=== PATIENT | male | born 1960 | race Caucasian/White ===

== ENCOUNTER → 2020-04-16 12:03 | Outpatient (BNVA) | payer MEDICAID, SELFPAY | PROVIDERS: Visit Provider Nurse Practitioner Family | DX: Z20.828 Contact with and (suspected) exposure to other viral communicable diseases (principal) | CPT/HCPCS: 87635 ==

== ENCOUNTER → 2021-09-04 09:32 | Outpatient (BNVA) | payer MEDICAID, SELFPAY | PROVIDERS: Visit Provider Surgery | DX: Z09 Encounter for follow-up examination after completed treatment for conditions other than malignant neoplasm (principal); C43.9 Malignant melanoma of skin, unspecified | CPT/HCPCS: 99213 ==

== ENCOUNTER 2021-09-09 12:33 | Outpatient (CLI) | payer MEDICAID, SELFPAY ==
--- NOTE | 2021-09-11 10:13 | ONC CON_ITS ---
Dr. Rodriguez New Patient Note Patient: Carloz Adan Unit #: [id number]: [id number] Dicatated By: Gogo Rodriguez M.D.Date of Visit: Sep 09, 2021 Onc MED New Patient/Consult Referring Physician: Dr. CHICO BLANCA M.D. History of Present Illness: Mr. Carloz Adan, is a 61-year-old gentleman with a history of melanoma involving mid upper back, underwent excisional biopsy on July 17, 2021 which showed melanoma in situ extends focally into the lateral edge and invasive melanoma extends close to the deep edge, depth of invasive 15.7 mm surface ulceration is present, T4b, NX MX, subsequently underwent CT PET scan on August 24, 2021 which showed bilateral FDG positive axillary lymph nodes consistent with metastatic disease. Index node in the left axilla measuring 4.2 x 4 cm with SUV of 18.7 and demonstrates central necrosis. A secondary left axillary lymph node measuring 1.3 x 1.6 cm with SUV of 8.5. And index right axillary lymph node measuring 1.3 cm SUV of 8.1. And mild postsurgical inflammatory changes in the midline right upper back As per patient he noticed a small skin bump in his right upper back about a year ago and thought could be basal cell carcinoma, as patient has history of basal cell carcinoma in the past so did not pay much attention but it continued to get bigger. And around Thanks2020 patient noted bilateral axillary masses, left was bigger than right sided,, at that time patient thought it could be due to deodorant, which he stopped using, with that, right sided lymph node resolved and left-sided axillary mass improved but persist. Denies overlying skin changes denies any pain, denies any history of bite or trauma, denies any night sweats, denies any recurrent fever denies any weight loss. Denies any bony pains Past Medical History: Mr. Adan's medical history consists of history of basal cell carcinoma, hypertension, and Covid virus in 2020. Past Surgical History: There is no documented surgical history. Medications: Atorvastatin Calcium 1 Tablet (of 10 mg) Oral daily, Combigan 1 Drop(s) (of 0.2-0.5 %) Solution Ophthalmic b.i.d., Ibuprofen 3 Tablet (of 200 mg) Oral PRN, Losartan Potassium 1 Tablet (of 100 mg) Oral daily, Mylanta (200-200-20 mg/5mL) Suspension Oral Take as Directed Allergies: Aspirin, Naproxen, and Penicillins. Social History: Mr. Adan is . Mr. Adan has never smoked. He is a former drinker. Family History: There is no documented family history. Review Of Symptoms: Review of Systems is not available for this patient. Vital Signs: Performed on Sep 09, 2021 14:09: 3, 0, 32.78 (HIGH), 2.16 sq.m, 69 in, 97 %, 61 /min, 18 /min, 179/98 mm(hg) (HIGH), 97.6 F (LOW), and 222.0 lbs (HIGH). Performance Status: 0 - Fully active, able to carry on all predisease activities without restrictions. (ECOG) Physical Examination: ENMT - No mouth sores, no thrush, no jaundice, About 5 cm lymph node palpable in left axilla, Nontender no overlying skin changes, Respiratory - Lungs are clear to auscultation without rhonchi or wheezing, Cardiovascular - Regular rate and rhythm of heart, Abdomen - Soft, bowel sounds present, Extremities - No visible edema, well-healed surgical scar in the mid upper right back. Lab/Imaging: Most recent lab results are not available for this patient. Impression: Malignant melanoma, superficial spreading type, invasive into subcutaneous tissue for excisional biopsy of right upper back skin lesion, depth of invasion 15.7 mm, surface ulceration is present pathological stage T4b, NX MX CT PET scan done on August 24, 2021 showed bilateral malignant axillary lymphadenopathy, more prominent on the left than the right representing metastatic disease. Postsurgical inflammatory changes in the right back from melanoma excision. History of basal cell carcinoma Plan: Discussed with patient regarding his CT PET scan finding and pathology from his right upper skin lesion biopsy which confirmed melanoma and now CT PET scan Done on August 24, 2021 showed bilateral axillary lymphadenopathy, case was discussed with Dr. Blanca today, who is planning to do left axillary lymph node biopsy, if positive then left axillary lymph node dissection and sonogram guided right axillary lymph node FNA, will request them molecular profiling including BRAF mutation testing. On the other hand, if left axillary lymph node biopsy shows no evidence of melanoma, then he would consider sentinel lymph node biopsy. Patient return to clinic in 2 weeks with CBC CMP. And left axillary lymph node biopsy report Signed By: Gogo Rodriguez M.D. <<Signature on File>>
== END 2021-09-09 12:34 | disposition home or self-care (01) ==
LOC: ONCMED 12:37
PROVIDERS: Visit Provider Internal Medicine Hematology & Oncology
DX: C43.59 Malignant melanoma of other part of trunk (principal); R59.0 Localized enlarged lymph nodes; Z85.828 Personal history of other malignant neoplasm of skin; F10.21 Alcohol dependence, in remission
CPT/HCPCS: 99205

== ENCOUNTER 2021-09-10 07:39 | Day surgery (SDC) | payer MEDICAID, SELFPAY ==
[2021-09-09 14:23] VITALS: BMI 32.8
[2021-09-10] VITALS (9 sets, daily range): BP systolic 129–164; BP diastolic 84–110; PULSE 65–81; RESP 16–18; TEMP 36.1–36.6; O2SAT 97–100
[2021-09-10] MEDS: sodium chloride 0.9% 1,000 ML 30 ML IV (08:12)
[2021-09-10] MEDS: acetaminophen 1,000 MG/100 ML PIGGYBACK 400 MG IV (08:30)
[2021-09-10] MEDS: heparin 5,000 unit/mL INJ 1 mL 2000 UNIT SUBCUT (08:32)
--- NOTE | 2021-09-10 09:01 | W.PM.OPSUD ---
Surgery/Procedure H&P Update DATE OF PROCEDURE: September 10, 2021 DATE H&P PERFORMED: 09/04/21 H&P UPDATE INFORMATION: I have reviewed H&P completed within last 30 days, I have examined patient prior to procedure and Changes to prior documentation as noted here (After in-depth discussion with Dr. Rodriguez and Dr. Orona, the consensus is to obtain first left exam lymph node biopsy and subsequently will determine future management.) PREOP DIAGNOSIS: Back melanoma with left axillary lymphadenopathy PRIMARY INDICATION FOR PROCEDURE: Back melanoma PLANNED PROCEDURE: Operation Date: 09/10/21 09:10 Proposed Procedures p wide local excision back mass 42266/14048/C43.0(Not Applicable) - Juan Blanca MD s Bilateral Axillary lymph node bx(Bilateral) - Juan Blanca MD
[2021-09-10] MEDS: clindamycin 900 MG/50 ML PREMIX 100 MG IV (09:31)
[2021-09-10] MEDS: lidocaine 2% INJ 20 mL INJECTION (10:16)
--- NOTE | 2021-09-10 11:36 | PM.OP ---
Operative Report Date of procedure: September 10, 2021 Pre-op diagnosis: Preop Diagnosis Back melanoma with left axillary lymphadenopathy Post-op diagnosis: Left axillary enlarged lymph node Post-op findings: Amulgmated left axillary lymphadenopathy Procedure done: Left axillary lymphadenectomy and placement of left axillary drain Implants: Pieces of Surgicel 15 Wolof round John drain Specimens removed/disposition: Left axillary lymphadenectomy 1-Fresh tissues sent for pathology 2-Tissues for cultures and sensitivities 3-Swabs for cultures and sensitivities Surgeon: Juan Blanca MD Bail Bond Agent: Angela Lopez Circulating nurse Riana Estimated blood loss (mL): 15 IV fluids (mL): 1,200 Procedure: Patient was identified in holding area and the left axilla was marked by me ,Patient was brought then to the operating room and the site of surgery was confirmed. Timeout was done verifying the patient's name/date of /planned procedure and destination after the procedure, all were in agreement. SCDs confirmed to be functioning, preoperative antibiotics administered per protocol, and beta austin protocol was confirmed, appropriate positioning of the patient was done by me and the staff Left pectoral area and left axilla and the whole left upper extremity and neck were prepped and draped in the usual sterile fashion, the left upper extremity were placed in a stockinette to allow mobilization of the arm during axillary dissection. Transverse skin incision was done at the left axilla coinciding with the skin crease, the dissection down to the subcutaneous tissues. Identified a large amalgamted lymph madyson mass,with central necrosis was appreciated with green material exuded out that was swabbed for cultures and sensitivities as well as tissues were sent for cultures and sensitivities. During dissection the clavipectoral fascia was then incised along the edge of the pectoralis major and the pectoralis major and minor were freed from surrounding fat and madyson tissue. Dissection progressed first under the pectoralis major done under the pectoralis minor muscle. The mass was big and was identified as a single matted lymphadenopathy. There were no other palpable lymph nodes or concerning lesions at the time of dissection. The pectoral muscles were retracted medially with a Lara retractor. The medial pectoral neurovascular bundle was identified and preserved.Hand-held harmonic scalpel was used for dissection. Remaining madyson tissue between the above nerves is then carefully removed, the specimen consisting of left axilla lymphadenectomy was sent for fresh to pathology. The whole lymph node the mass was about 10 x 5 x 4 cm The wound was irrigated and hemostasis was achieved. Small and medium size clips were used for hemostasis. A rounded John drain 15 Wolof were placed and brought out through the inferior flap,towards the axilla , drain was stitched to the skin using 2-0 nylonx2 .wound was then closed using deep subdermal 2-0 Vicryl , followed by 4-0 Monocryl then surgical glue followed by dry dressing, drain dressing. Counts of sponges, needles and instruments were completed at the end of the procedure I was present for the whole entire procedure Patient was then extubated and taken to the recovery room in stable condition
[2021-09-10] MEDS: HYDROcodone-acetaminophen 5-325 mg Tablet 1 TAB PO (12:54)
--- NOTE | 2021-09-10 13:16 | PC.NURSE ---
0-went over instructions with patient and patient spouse regarding care of drain. Gave paper for them to record drainage on. demonstrated how to empty drain and apply back to suction. Instructed patient and family on excercises to use to left arm to prevent lymphadema, Patient and family both verbalize understanding.
--- NOTE | 2021-09-10 17:43 | ANE.PACU2 ---
Inpatient post-anesthesia follow up: Airway intact: Yes Vital signs: Temperature 97.8 F Pulse Rate 70 Respiratory Rate 18 Blood Pressure 164/99 Pulse Oximetry 100 Oxygen Delivery Me thod Room Air Oxygen Flow Rate 6 Fraction of Inspir ed Oxygen Hydration adequate: Yes Nausea and vomiting: No Pain level: 1 Mental status: Baseline
[2021-09-18 13:37] LABS: Miscellaneous Test See Scanned Lab Rpt
[2021-09-26 09:14] LABS: Miscellaneous Test See Scanned Lab Rpt
== END 2021-09-10 13:29 | disposition home or self-care (01) ==
PROVIDERS: Visit Provider Surgery
PROC: (CPT 38525; 2021-09-10 09:00)
DX: C43.59 Malignant melanoma of other part of trunk (principal); C77.3 Secondary and unspecified malignant neoplasm of axilla and upper limb lymph nodes
CPT/HCPCS: 38525; 81210; 87070; 87075; 87176; 87205; 88307; 88341; 88342; 88381; J1100; J1644; J2250; J2405; J2704; J3010; J3490; J7030

== ENCOUNTER → 2021-09-19 14:51 | Outpatient (BNVA) | payer MEDICAID, SELFPAY | PROVIDERS: Visit Provider Surgery | DX: Z98.890 Other specified postprocedural states (principal); C43.9 Malignant melanoma of skin, unspecified ==

== ENCOUNTER → 2021-09-27 07:41 | Outpatient (BNVA) | payer MEDICAID, SELFPAY | PROVIDERS: PCP Family Medicine; Referring Provider Family Medicine; Visit Provider Urology | DX: R97.20 Elevated prostate specific antigen [PSA] (principal); Z85.820 Personal history of malignant melanoma of skin | CPT/HCPCS: 36415; 81003; 84153; 99204 ==

== ENCOUNTER 2021-10-02 10:05 | Outpatient (CLI) | payer MEDICAID, SELFPAY ==
--- NOTE | 2021-10-02 10:45 | US_ITS ---
WS: [id number] ULTRASOUND GUIDED BIOPSY RIGHT AXILLARY LYMPH NODE. HISTORY: Abnormal, PET/CT positive lymph nodes in the RIGHT axilla. History of melanoma. Procedure, risks, and complications are explained to the patient. Consent was obtained. Skin is clean sed with ChloraPrep and anesthetized with 1% buffered lidocaine. Abnormal RIGHT axillary lymph node is identified. There are small dermatome multiple core biopsies ar e performed with 18 and 20-gauge needles. No complications are evident. Specimen is placed in saline for pathology. US/US biopsy lymph node [id number] IMPRESSION: 1. Uncomplicated ultrasound-guided biopsy RIGHT axillary lymph node. 2. Specimen collected in saline and sent to pathology immediately after proced ure.
== END 2021-10-02 10:06 | disposition home or self-care (01) ==
LOC: RAD 10:09
PROVIDERS: PCP Family Medicine; Visit Provider Surgery
DX: C43.9 Malignant melanoma of skin, unspecified (principal); R59.9 Enlarged lymph nodes, unspecified
CPT/HCPCS: 38505; 76942; 88305

== ENCOUNTER 2021-10-04 07:47 | Outpatient (CLI) | payer MEDICAID, SELFPAY ==
[2021-10-04 08:23] LABS: Alanine Aminotransferase 44 U/L (0-41); Albumin Level 4.1 g/dL (3.5-5.2); Alkaline Phosphatase 257 IU/L (40-130); Anion Gap 16.1 (5-19); Aspartate Amino Transferase 22 U/L (0-40); Blood Urea Nitrogen 12 mg/dL (8-23); Calcium 8.7 mg/dL (8.5-10.5); Carbon Dioxide 25 mmol/L (22-29); Chloride 102 mmol/L (98-107); Globulin 3.1 g/dL (1.3-4.6); Glomerular Filtration Rate 98.3 mL/min (90-130); Glucose 90 mg/dL (65-115); Osmolality Calculated 287 mOsm/kg (285-295); Potassium 4.1 mmol/L (3.5-5.1); Sodium 139 mmol/L (136-145); Total Bilirubin 0.3 mg/dL (0.15-1.2); Total Protein 7.2 g/dL (6.6-8.7)
== END 2021-10-04 07:48 | disposition home or self-care (01) ==
LOC: LAB 07:48
PROVIDERS: PCP Family Medicine; Visit Provider Internal Medicine Hematology & Oncology
DX: C43.9 Malignant melanoma of skin, unspecified (principal)
CPT/HCPCS: 36415; 80053

== ENCOUNTER 2021-10-04 08:00 | Oncology outpatient (recurring) (ONCR) | payer MEDICAID, SELFPAY ==
[2021-09-25 10:50] LABS: Basophils % 0.3 %; Eosinophils # 0.1 10^3/uL (0.0-0.8); Eosinophils % 0.7 %; Hematocrit 45.7 % (42.0-52.0); Hemoglobin 14.8 g/dL (11.7-16.6); Lymphocytes # 1.5 10^3/uL (0.8-4.8); Lymphocytes % 16.2 %; Mean Corpuscular HGB Conc 32.4 g/dL (30.0-36.0); Mean Corpuscular Hemoglobin 27.7 pg (28.0-34.0); Mean Corpuscular Volume 85.6 fl (80-94); Mean Platelet Volume 10.2 fL (7.4-10.4); Monocytes # 0.9 10^3/uL (0.2-0.9); Monocytes % 9.2 %; Neutrophils # 6.75 10^3/uL (1.8-7.7); Neutrophils % 73.4 %; Nucleated Red Blood Cells % 0 %; Platelet Count 383 10^3/cmm (130-400); Red Blood Count 5.34 10^6/uL (4.1-5.3); Red Cell Distribution Width 13.9 % (12.1-15.1); White Blood Count 9.2 10^3/uL (4.0-10.0)
[2021-09-25 11:15] LABS: Alanine Aminotransferase 296 U/L (0-41); Albumin Level 3.8 g/dL (3.5-5.2); Alkaline Phosphatase 573 IU/L (40-130); Anion Gap 13.6 (5-19); Aspartate Amino Transferase 106 U/L (0-40); Blood Urea Nitrogen 17 mg/dL (8-23); Calcium 9.5 mg/dL (8.5-10.5); Carbon Dioxide 25 mmol/L (22-29); Chloride 100 mmol/L (98-107); Globulin 3.7 g/dL (1.3-4.6); Glucose 121 mg/dL (65-115); Osmolality Calculated 283 mOsm/kg (285-295); Potassium 3.6 mmol/L (3.5-5.1); Sodium 135 mmol/L (136-145); Total Bilirubin 0.4 mg/dL (0.15-1.2); Total Protein 7.5 g/dL (6.6-8.7)
== END 2021-10-15 23:59 | disposition home or self-care (01) ==
PROVIDERS: Visit Provider Internal Medicine Hematology & Oncology
DX: C43.59 Malignant melanoma of other part of trunk (principal); C77.8 Secondary and unspecified malignant neoplasm of lymph nodes of multiple regions; C78.7 Secondary malignant neoplasm of liver and intrahepatic bile duct; R97.8 Other abnormal tumor markers; Z79.899 Other long term (current) drug therapy
CPT/HCPCS: 80053; 85025; 99214; 99999

== ENCOUNTER 2021-10-08 05:44 | Day surgery (SDC) | payer MEDICAID, SELFPAY ==
[2021-10-07 13:29] VITALS: BMI 31.7
[2021-10-08] VITALS (7 sets, daily range): BP systolic 120–163; BP diastolic 81–101; PULSE 55–80; RESP 12–18; TEMP 36.1–36.8; O2SAT 96–100
--- NOTE | 2021-10-08 06:34 | P.ANESASSM_ITS ---
Pre-Anesthetic Assessment Height/Weight: Height 1.75 m Weight 97.522 kg Temp Pulse Resp BP Pulse Ox 98.2 F 71 18 120/81 97 10/08/21 06:07 10/08/21 06:07 10/08/21 06:07 10/08/21 06:07 10/08/21 06:07 Preop Diagnosis: Melanoma of the back and visit cell carcinoma of left arm Operation Date: 10/08/21 07:00 Proposed Procedures p Wide Local Excision of back Melanoma 25541/21883/C43.9(Not Applicable) - Juan Blanca MD s Excision of Left Arm Mass(Left) - Juan Blanca MD Familial anesthetic complications: None Was Beta Jovita taken within 24 hours: N/A Was Clonidine taken within 24 hours: N/A Last intake: Intake Last Liquid Date 10/07/21 Last Liquid Time 20:00 Last Solid Date 10/07/21 Last Solid Time 19:00 Social No alcohol and No tobacco Exam alert, oriented x 3, clear to auscultation bilaterally and regular rate & rhythm Airway Mallampati: Class II Dentition: partials and other (missing) Pulmonary None reported CV/HEM Hypertension None reported Hepatic None reported GI None reported Metabolic Hyperlipidemia [facility] None reported Neuropsych None reported Anesthetic Plan ASA status: 2 Anesthesia: General Risk of > 500 ml blood loss (7ml/kg in children): No Medications/Allergies Home Medications Medication Instructions Recorded Confirmed Last Taken Type losartan 50 mg tablet 100 mg PO DAILY 09/09/21 10/08/21 10/07/21 History atorvastatin 10 mg tablet 10 mg PO DAILY 09/27/21 10/08/21 10/07/21 History brimonidine 0.2 %-timolol 0.5 % 1 drp OPHTHALMIC (EYE) BID 09/27/21 10/08/21 10/07/21 History eye drops (Combigan) Allergies Allergy/AdvReac Type Severity Reaction Status Date / Time naproxen Allergy vomiting Verified 10/04/21 08:48 Penicillins Allergy ADR-Gastrointestinal Verified 10/04/21 08:48 Upset [facility] Anesthesia Medical History Elevated PSA Hypertension Malignant melanoma Nodular basal cell carcinoma (BCC) Surgical History Hx of lymph node excision Family History (Updated 10/04/21 @ 08:53 by Theodora Obrien LPN) Father Heart disease Diabetes Mother Dementia Lung disease Grandfather Cancer Family/Other Cancer Aunt - Uterine cancer Son Diabetes Brother Hyperlipidemia Other Hypertension Denies family history of CAD (coronary artery disease) Clotting disorder Psychiatric illness Chronic kidney disease (CKD) Suicide Anesthesia complication Bleeding disorder Stroke Social History Smoking and tobacco status: never smoked Alcohol intake: never Marital status: Current occupational status: employed History of recent travel: No Data Anesthesia Cardiac Studies: No Data to Display
--- NOTE | 2021-10-08 06:35 | W.PM.OPSUD ---
Surgery/Procedure H&P Update DATE OF PROCEDURE: October 08, 2021 DATE H&P PERFORMED: 09/19/21 H&P UPDATE INFORMATION: I have reviewed H&P completed within last 30 days, I have examined patient prior to procedure and Changes to prior documentation as noted here (1. Uncomplicated ultrasound-guided biopsy RIGHT axillary lymph node. 2. Specimen collected in saline and sent to pathology immediately after procedure.) CHANGES TO PREVIOUS DOCUMENTATION: Right axillary lymph node biopsies: Metastatic Malignant Melanoma PREOP DIAGNOSIS: Melanoma of the back and visit cell carcinoma of left arm PRIMARY INDICATION FOR PROCEDURE: The same PLANNED PROCEDURE: Operation Date: 10/08/21 07:00 Proposed Procedures p Wide Local Excision of back Melanoma [id number]/12839/C43.9(Not Applicable) - Juan Blanca MD s Excision of Left Arm Mass(Left) - Juan Blanca MD
[2021-10-08] MEDS: acetaminophen 1,000 MG/100 ML PIGGYBACK 400 MG IV (06:46)
[2021-10-08] MEDS: sodium chloride 0.9% 1,000 ML 30 ML IV (06:46)
[2021-10-08] MEDS: levofloxacin-dextrose 5 % 500 MG/100 ML PREMIX 100 MG IV (06:57)
[2021-10-08] MEDS: lidocaine 2% INJ 20 mL INJECTION (08:29)
--- NOTE | 2021-10-08 08:30 | P.OP_ITS ---
Operative Report Date of procedure: October 08, 2021 Pre-op diagnosis: Preop Diagnosis Melanoma of the back and basal cell carcinoma of left arm Post-op diagnosis: The same Procedure done: 1-Wide local excision of back melanoma 2-Elevation of bilateral back flaps including skin and subcutaneous 3-Excision of left arm basal cell carcinoma Specimens removed/disposition: Wide local excision back melanoma short suture xiao superior and long right l ateral Left arm mass short sutures marked superior and long left lateral suture Surgeon: Juan Blanca MD Mechanical Manager: configuration technician Bernadine Circulating nurse Joana Anesthesia: General (Pravin Lu and Dr. Sadler) Estimated blood loss (mL): 20 IV fluids (mL): 800 Procedure: Patient was identified in the holding area and both lesions were marked by me. Patient was then taken to the operating room where he was intubated on the gurney first and then patient was moved in a prone position on the OR table were all pressure points were padded and appropriate orientation was done. Timeout was done after verifying the patient's name, date of , planned procedure and destination after pre-procedure and all were in agreement. Prep and drape of the back as well as the left upper extremity was done under the usual sterile technique. Confirmation of preop antibiotics and Tylenol as a preop medication was confirmed with a timeout. Started with wide elliptical skin incision encompassing the back melanoma putting into consideration at least 2 cm as a safe margin. I was able to dissect the skin and subcutaneous layer and the specimen was oriented with short sutures superior and long right lateral sutures. Following that I austin bilateral skin and subcutaneous flaps, to allow tension- free closure. Appropriate hemostasis was done and some bleeding points were secured with 3-0 Vicryl, there was a large surface area I elected to place a 15 Angolan round John drain and brought it from the inferior portion of the wound via separate stab incision and secured to the skin using 2-0 nylon. Copious and thorough irrigation was done and final look secured hemostasis. Running 0 Vicryl was done as a deep subdermal suture followed by interrupted horizontal Prolene mattress sutures. Attention now was deviated towards the left arm mass were gloves were changed and new instruments were brought. Elliptical incision was done encompassing the basal cell carcinoma of the left arm with appropriate safety margin. Hemostasis was achieved followed by deep subdermal 3-0 Vicryl then continuous 3-0 nylon. Appropriate dressing was applied for both incision and patient was placed in supine position. Patient was then taken to the recovery area after extubation and continued to be in stable condition. Of note patient maintained to have stable left axillary incision with appropriate healing I was present for the whole entire procedure
--- NOTE | 2021-10-08 13:47 | ANE.PACU2 ---
Inpatient post-anesthesia follow up: Airway intact: Yes Vital signs: Temperature 97.3 F Pulse Rate 55 Respiratory Rate 16 Blood Pressure 150/97 Pulse Oximetry 97 Oxygen Delivery Me thod Room Air Oxygen Flow Rate 8 Fraction of Inspir ed Oxygen Hydration adequate: Yes Nausea and vomiting: No Pain level: 2 Mental status: Baseline
== END 2021-10-08 10:10 | disposition home or self-care (01) ==
LOC: OR 05:47
PROVIDERS: PCP Family Medicine; Visit Provider Surgery
PROC: (CPT 11602; principal; 2021-10-08 07:00)
PROC: (CPT 11602; 2021-10-08 07:00)
DX: C44.619 Basal cell carcinoma of skin of left upper limb, including shoulder (principal); D36.7 Benign neoplasm of other specified sites; I10 Essential (primary) hypertension; E78.5 Hyperlipidemia, unspecified; Z82.49 Family history of ischemic heart disease and other diseases of the circulatory system; Z83.3 Family history of diabetes mellitus
CPT/HCPCS: 11602; 11606; 12032; 88305; J0330; J1100; J1956; J2370; J2405; J2704; J2710; J3010; J3490; J7030

== ENCOUNTER → 2021-10-16 11:21 | Outpatient (BNVA) | payer MEDICAID, SELFPAY | PROVIDERS: PCP Family Medicine; Visit Provider Surgery | DX: Z09 Encounter for follow-up examination after completed treatment for conditions other than malignant neoplasm (principal) | CPT/HCPCS: 99024 ==

== ENCOUNTER 2021-10-18 07:49 | Oncology outpatient (recurring) (ONCR) | payer MEDICAID, SELFPAY | END 2021-11-14 23:59 | disposition home or self-care (01) | LOC: ONCMED 07:50 | PROVIDERS: PCP Family Medicine; Visit Provider Internal Medicine Hematology & Oncology | DX: C43.59 Malignant melanoma of other part of trunk (principal); C77.3 Secondary and unspecified malignant neoplasm of axilla and upper limb lymph nodes; I10 Essential (primary) hypertension; Z79.899 Other long term (current) drug therapy | CPT/HCPCS: 36415; 80053; 85025; 99214 ==

== ENCOUNTER → 2021-10-30 08:49 | Outpatient (BNVA) | payer MEDICAID, SELFPAY | PROVIDERS: PCP Family Medicine; Visit Provider Surgery | DX: Z09 Encounter for follow-up examination after completed treatment for conditions other than malignant neoplasm (principal) | CPT/HCPCS: 99024 ==

== ENCOUNTER → 2021-11-28 12:56 | Outpatient (BNVA) | payer MEDICAID, SELFPAY | PROVIDERS: PCP Family Medicine; Visit Provider Surgery | DX: Z98.890 Other specified postprocedural states (principal); C43.9 Malignant melanoma of skin, unspecified | CPT/HCPCS: 99024 ==

== ENCOUNTER 2021-12-12 07:47 | Oncology outpatient (recurring) (ONCR) | payer MEDICAID, SELFPAY | END 2021-12-15 23:59 | disposition home or self-care (01) | PROVIDERS: PCP Family Medicine; Visit Provider Internal Medicine Hematology & Oncology | DX: C43.9 Malignant melanoma of skin, unspecified (principal); C77.3 Secondary and unspecified malignant neoplasm of axilla and upper limb lymph nodes; Z79.899 Other long term (current) drug therapy | CPT/HCPCS: 99214 ==

== ENCOUNTER 2021-12-24 09:02 | Outpatient (CLI) | payer MEDICAID, SELFPAY ==
[2021-12-24 10:04] LABS: Prostate Specific AG Urology 6.16 ng/mL (0-4)
== END 2021-12-24 09:03 | disposition home or self-care (01) ==
LOC: LAB 09:04
PROVIDERS: PCP Family Medicine; Visit Provider Urology
DX: R97.20 Elevated prostate specific antigen [PSA] (principal)
CPT/HCPCS: 36415; 81003; 84153; 99213

== ENCOUNTER → 2021-12-25 13:58 | Outpatient (BNVA) | payer MEDICAID, SELFPAY | PROVIDERS: PCP Family Medicine; Visit Provider Surgery | DX: C43.9 Malignant melanoma of skin, unspecified (principal); Z98.890 Other specified postprocedural states | CPT/HCPCS: 99024 ==

== ENCOUNTER 2021-12-31 08:20 | Day surgery (SDC) | payer MEDICAID, SELFPAY ==
--- NOTE | 2021-12-26 12:31 | ANE.PACU2 ---
Inpatient post-anesthesia follow up: Airway intact: Yes Vital signs: Temperature Pulse Rate Respiratory Rate Blood Pressure Pulse Oximetry Oxygen Delivery Me thod Oxygen Flow Rate Fraction of Inspir ed Oxygen Hydration adequate: Yes Nausea and vomiting: No Pain level: 1 Mental status: Baseline
--- NOTE | 2021-12-31 | SCC_ITS ---
Procedure done: 1.Placement of PowerPort via right subclavian vein 2.Fluoroscopic guidance and interpretation for placement of catheter 12.1 seconds of fluoroscopic guidance, for a cumulative dose of 2.51 mGy, was provided to Dr. Blanca by the radiology department. C-arm images of the chest were saved for the patient's permanent record. [facility]
--- NOTE | 2021-12-31 08:44 | SC_ITS ---
WS: [id number] INTRAOPERATIVE TECHNIQUE: 3 Spot fluoroscopic images for intraoperative purposes. FLUOROSCOPY TIME: 10.9 seconds CLINICAL INFORMATION: Powerport Placement COMPARISON: None. FINDINGS: RIGHT Port-A-Cath with tip in the distal SVC. No visualized pneumothorax. SC/C-arm FL for CVA [id number] IMPRESSION: Images obtained for intraoperative purposes.
[2021-12-31 08:55] VITALS: BP 120/82; PULSE 73; RESP 16; TEMP 36.8; O2SAT 96
--- NOTE | 2021-12-31 09:39 | P.ANESASSM_ITS ---
Pre-Anesthetic Assessment Height/Weight: Height 1.75 m Weight 95.254 kg Temp Pulse Resp BP Pulse Ox O2 Del Method 98.2 F 73 16 120/82 96 12/31/21 08:55 12/31/21 08:55 12/31/21 08:55 12/31/21 08:55 12/31/21 08:55 12/31/21 09:03 Preop Diagnosis: Melanoma Operation Date: 12/31/21 10:00 Proposed Procedures p Portacath Placement 37165,C43.9(Not Applicable) - Juan Blanca MD Familial anesthetic complications: None Was Beta Jovita taken within 24 hours: N/A Was Clonidine taken within 24 hours: N/A Last intake: Intake Last Liquid Date 12/30/21 Last Liquid Time 20:00 Last Solid Date 12/30/21 Last Solid Time 18:00 Social No alcohol and No tobacco Exam alert, oriented x 3, clear to auscultation bilaterally and regular rate & rhythm Airway Mallampati: Class II Dentition: partials Metabolic Hyperlipidemia Musc/skel melanoma Neuropsych glaucoma Anesthetic Plan ASA status: 2 Anesthesia: MAC Risk of > 500 ml blood loss (7ml/kg in children): No Medications/Allergies Home Medications Medication Instructions Recorded Confirmed Last Taken Type brimonidine 0.2 %-timolol 0.5 % 1 drp ophthalmic (eye) BID 09/27/21 12/31/21 12/30/21 08:00 History eye drops (Combigan) atorvastatin 20 mg tablet 20 mg PO ONCE 11/28/21 12/31/21 12/30/21 08:00 History losartan 100 1 tab PO ONCE 11/28/21 12/31/21 12/30/21 20:00 History mg-hydrochlorothiazide 12.5 mg tablet ibuprofen 200 mg capsule 200 mg PO Q6H PRN Pain 12/24/21 12/30/21 12/28/21 20:00 History Allergies Allergy/AdvReac Type Severity Reaction Status Date / Time adhesive tape Allergy ALGY-Rash Verified 12/27/21 06:42 naproxen Allergy vomiting Verified 12/27/21 06:42 Penicillins Allergy ADR-Gastrointestinal Verified 12/27/21 06:42 Upset PFSH Anesthesia Medical History Elevated PSA Hypertension Malignant melanoma Nodular basal cell carcinoma (BCC) Surgical History Hx of lymph node excision Family History Father Heart disease Diabetes Mother , AT AGE 80 Dementia Lung disease Alzheimer disease Grandfather Cancer Family/Other Cancer Aunt - Uterine cancer Son Diabetes Brother Hyperlipidemia Other Hypertension Denies family history of CAD (coronary artery disease) Clotting disorder Psychiatric illness Chronic kidney disease (CKD) Suicide Anesthesia complication Bleeding disorder Stroke Social History Smoking and tobacco status: never smoked Alcohol intake: current Alcohol intake frequency: few times a month Marital status: Current occupational status: employed 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
--- NOTE | 2021-12-31 09:44 | W.PM.OPSUD ---
Surgery/Procedure H&P Update DATE OF PROCEDURE: December 31, 2021 DATE H&P PERFORMED: 12/25/21 H&P UPDATE INFORMATION: I have reviewed H&P completed within last 30 days, I have examined patient prior to procedure and No changes to prior documentation PREOP DIAGNOSIS: Melanoma PRIMARY INDICATION FOR PROCEDURE: The same PLANNED PROCEDURE: Operation Date: 12/31/21 10:00 Proposed Procedures p Portacath Placement 93213,C43.9(Not Applicable) - Juan Blanca MD
[2021-12-31] MEDS: sodium chloride 0.9% 1,000 ML 30 ML IV (09:49)
[2021-12-31] MEDS: clindamycin 900 MG/50 ML PREMIX 100 MG IV (09:58)
[2021-12-31] MEDS: heparin, porcine 1,000 unit/mL INJ 10 mL 10000 UNIT INJECTION (10:19)
--- NOTE | 2021-12-31 10:40 | PM.OP ---
Operative Report Date of procedure: December 31, 2021 Pre-op diagnosis: Preop Diagnosis Melanoma Post-op diagnosis: The same Procedure done: 1.Placement of PowerPort via right subclavian vein 2.Fluoroscopic guidance and interpretation for placement of catheter Surgeon: Juan Blanca MD [employer] Instructor: Angela Chavez Anesthesia: MAC (JYOTHI Cat) Estimated blood loss (mL): 5 Procedure: RIGHT SUBCLAVIAN VEIN Patient was identified in the holding area and taken to the operative room and placed in supine position IV propofol was given by the anesthesia provider ,both arms were tucked,Time-out was done verifying the patient's name/date of /planned procedure and destination after the procedure, all were in agreement. SCDs confirmed to be functioning, preoperative antibiotics administered per protocol, and beta [place] protocol was confirmed, appropriate positioning of the patient was done by me. Medications were reviewed to assess for anticoagulant usage. Risks and benefits and prevention of central line associated blood stream infection (CLABSI) were discussed with the patient/CPOA, and a consent was obtained. Monitors were in place and monitored throughout the procedure. All necessary supplies were available prior to start. Hand hygiene was completed prior to starting. Maximum barrier technique was utilized including a sterile gown, sterile gloves with a hat and mask. Site was was prepped with [chlorhexidine] and a full body drape was placed. 5 mL of 2% lidocaine was injected into the skin with a 25 gauge needle. Prep& drape was done under the usual sterile technique, lidocaine 2% was injected at the site of the stick, started by right sub-clavian vein stick that retrieved venous blood was obtained from the first stick, a guide wire was then threaded and under the guidance of fluoroscopy position was confirmed to be in the IVC and with my interpretation, there were no PVC changes, at that point the guide wire was secured to the drapes with a hemostat and the needle was taken out, attention was then deviated towards creation of a pocket for the port were lidocaine 2% was injected using an 15 blade knife skin incision was created dissection using the Bovie to create a pocket for the Power Port to be accommodated. Hemostasis was secured, after the port being appropriately flushed it was inserted into the pocket and a tunneler was used to accommodate the catheter of the port catheter to be delivered through the incision first created at the site of the stick, at that point under fluoroscopy an estimated length was measured for the catheter and was cut at the designed level, followed by that a dilator with the sheath introduced onto the guide wire the dilator and the wire were retrieved and the catheter of the port was introduced via the sheath where it was peeled off and the catheter maintained to be in the SVC that was confirmed with fluoroscopy, and the fluoroscopy interpretation was done by me throughout the entire procedure. The port was kept in its pocket,3-0 Vicryl deep subdermal interrupted sutures, skin was then closed by 4-0 Monocryl as subcuticular closure.The port was appropriately flushed with heparin and venous blood was withdrawn without difficulty.The stick site was closed by 4-0 Monocryl and Dermabond was used followed by dressing.Count was correct at the end of the procedure.Patient tolerated the procedure well was taken to the recovery area. I was present for the whole entire procedure. Position of the catheter was checked with a postoperative chest x-ray and it was in good position without evidence of pneumothorax
--- NOTE | 2021-12-31 10:42 | XR_ITS ---
WS: [id number] Exam: XR chest 1V portable [id number] Date/Time of Exam: 12/31/2021 10:42 AM Reason For Exam: Status postplacement of right subclavian vein PowerPort No priors. Right-sided subclavian Port-A-Cath has been placed and ends in the lower one third of the SVC in good position. The lungs are fully expanded and clear. Normal cardiomediastinal silhouette. Calcified gra nuloma in the right lung base. Surgical clips along the left axilla. Bony structures are intact. XR/XR chest 1V portable [id number] IMPRESSION: 1. Right-sided subclavian port in satisfactory position. No acute cardiopulmona ry finding.
[2021-12-31 10:49] VITALS: BP 108/68; PULSE 60; RESP 14; TEMP 36.6; O2SAT 97
[2021-12-31 10:55] VITALS: BP 121/70; PULSE 59; RESP 14; O2SAT 96
[2021-12-31 11:01] VITALS: BP 120/75; PULSE 55; RESP 14; TEMP 36.7; O2SAT 97
[2021-12-31 11:22] VITALS: BP 117/70; PULSE 54; RESP 12; TEMP 36.6; O2SAT 98
[2021-12-31 11:55] VITALS: BP 115/69; PULSE 58; RESP 14; TEMP 36.8; O2SAT 99
--- NOTE | 2021-12-31 13:23 | ANE.PACU2 ---
Inpatient post-anesthesia follow up: Airway intact: Yes Vital signs: Temperature 98.2 F Pulse Rate 58 Respiratory Rate 14 Blood Pressure 115/69 Pulse Oximetry 99 Oxygen Delivery Me thod Room Air Oxygen Flow Rate Fraction of Inspir ed Oxygen Hydration adequate: Yes Nausea and vomiting: No Pain level: 1 Mental status: Baseline
== END 2021-12-31 12:25 | disposition home or self-care (01) ==
PROVIDERS: PCP Family Medicine; Visit Provider Surgery
PROC: (CPT 36561; principal; 2021-12-31 09:50)
DX: C43.9 Malignant melanoma of skin, unspecified (principal); E78.5 Hyperlipidemia, unspecified
CPT/HCPCS: 36561; 71045; 76000; 77001; C1788; J1644; J2704; J3010; J3490; J7030

== ENCOUNTER → 2022-01-13 08:59 | Outpatient (BNVA) | payer MEDICAID, SELFPAY | PROVIDERS: PCP Family Medicine; Visit Provider Surgery | DX: Z09 Encounter for follow-up examination after completed treatment for conditions other than malignant neoplasm (principal) | CPT/HCPCS: 99024 ==

== ENCOUNTER 2022-01-15 10:00 | Oncology outpatient (recurring) (ONCR) | payer MEDICAID, SELFPAY ==
--- NOTE | 2021-12-17 11:00 | MR_ITS ---
WS: [id number] MRI BRAIN WITH AND WITHOUT CONTRAST HISTORY: baseline staging, history of melanoma. COMPARISON: None available. TECHNIQUE: Multiplanar imaging performed through the brain with MultiHance 20 ml's IV. No acute infarcts are seen. Blanco-white matter differentiation is well preserved. No significant small vessel ischemic disease and no prior infarct. No susceptibility artifacts or prior lacunar infarcts. Ventricles and extra-axial spaces are normal. Clivus and pituitary gland are normal. Visualized posterior fossa and brainstem are also normal. Well-circumscribed cystic mass in the super ior superficial LEFT parotid lobe measures 10 x 9 mm. This nodule does not enhance. Postcontrast images are negative for masses or vascular malformations. Dural venous sinuses are normal. Paranasal sinuses: Well aerated with no significant disease. Mastoid air cells: Normal. Calvarium and scalp: Normal. MR/MR head wo/w con [id number] IMPRESSION: 1. No evidence for metastatic disease to the brain. 2. No significant small vessel ischemic disease or prior infarct. 3. Nonenhancing cystic lesion in the superficial superior LEFT parotid gland m easuring 10 x 9 mm. High probability this is benign.
[2021-12-17] MEDS: gadobenate dimeglumine 20 mL vial IV (12:15)
[2021-12-19 10:51] LABS: Basophils % 0.3 %; Eosinophils # 0.3 10^3/uL (0.0-0.8); Eosinophils % 3.4 %; Hematocrit 40.2 % (42.0-52.0); Hemoglobin 13.6 g/dL (11.7-16.6); Lymphocytes # 1.3 10^3/uL (0.8-4.8); Lymphocytes % 13.8 %; Mean Corpuscular HGB Conc 33.8 g/dL (30.0-36.0); Mean Corpuscular Hemoglobin 28.5 pg (28.0-34.0); Mean Corpuscular Volume 84.3 fl (80-94); Mean Platelet Volume 10.1 fL (7.4-10.4); Monocytes % 10.6 %; Neutrophils # 6.62 10^3/uL (1.8-7.7); Neutrophils % 71.6 %; Nucleated Red Blood Cells % 0 %; Platelet Count 352 10^3/cmm (130-400); Red Blood Count 4.77 10^6/uL (4.1-5.3); Red Cell Distribution Width 13.3 % (12.1-15.1); White Blood Count 9.3 10^3/uL (4.0-10.0)
[2021-12-19 11:25] LABS: Alanine Aminotransferase 18 U/L (0-41); Albumin Level 3.4 g/dL (3.5-5.2); Alkaline Phosphatase 103 IU/L (40-130); Anion Gap 11.7 (5-19); Aspartate Amino Transferase 19 U/L (0-40); Blood Urea Nitrogen 14 mg/dL (8-23); Calcium 9.1 mg/dL (8.5-10.5); Carbon Dioxide 28 mmol/L (22-29); Chloride 101 mmol/L (98-107); Globulin 3.6 g/dL (1.3-4.6); Glomerular Filtration Rate 114.6 mL/min (90-130); Glucose 150 mg/dL (65-115); Osmolality Calculated 287 mOsm/kg (285-295); Potassium 3.7 mmol/L (3.5-5.1); Sodium 137 mmol/L (136-145); Total Bilirubin 0.2 mg/dL (0.15-1.2)
[2022-01-01] MEDS: sodium chloride 0.9% 250 ML 75 ML IV (09:33)
[2022-01-01] MEDS: nivolumab 240 MG in sodium chloride 0.9% 250 ML 548 MG IV (09:59)
[2022-01-01 11:03] VITALS: BP 128/82; PULSE 59; TEMP 36.6; O2SAT 97
[2022-01-15 10:26] LABS: Basophils % 0.3 %; Eosinophils # 0.2 10^3/uL (0.0-0.8); Eosinophils % 1.6 %; Hematocrit 41.9 % (42.0-52.0); Hemoglobin 13.8 g/dL (11.7-16.6); Lymphocytes # 1.3 10^3/uL (0.8-4.8); Lymphocytes % 9.5 %; Mean Corpuscular HGB Conc 32.9 g/dL (30.0-36.0); Mean Corpuscular Hemoglobin 28.1 pg (28.0-34.0); Mean Corpuscular Volume 85.3 fl (80-94); Mean Platelet Volume 9.5 fL (7.4-10.4); Monocytes # 1.2 10^3/uL (0.2-0.9); Monocytes % 9.1 %; Neutrophils # 10.65 10^3/uL (1.8-7.7); Neutrophils % 79.2 %; Nucleated Red Blood Cells % 0 %; Platelet Count 376 10^3/cmm (130-400); Red Blood Count 4.91 10^6/uL (4.1-5.3); Red Cell Distribution Width 13.8 % (12.1-15.1); White Blood Count 13.4 10^3/uL (4.0-10.0)
[2022-01-15 10:34] VITALS: BMI 30.5
[2022-01-15 11:12] LABS: Alanine Aminotransferase 14 U/L (0-41); Albumin Level 3.6 g/dL (3.5-5.2); Alkaline Phosphatase 114 U/L (40-130); Anion Gap 11.9 (5-19); Aspartate Amino Transferase 17 U/L (0-40); Blood Urea Nitrogen 13 mg/dL (8-23); Calcium 9.4 mg/dL (8.5-10.5); Carbon Dioxide 29 mmol/L (22-29); Chloride 98 mmol/L (98-107); Globulin 3.1 g/dL (1.3-4.6); Glucose 114 mg/dL (65-115); Osmolality Calculated 281 mOsm/kg (285-295); Potassium 3.9 mmol/L (3.5-5.1); Sodium 135 mmol/L (136-145); Thyroid Stimulating Hormone 0.65 uIU/mL (0.27-4.20); Total Bilirubin 0.3 mg/dL (0.15-1.2); Total Protein 6.7 g/dL (6.6-8.7)
[2022-01-15] MEDS: sodium chloride 0.9% 250 ML 75 ML IV (11:55)
[2022-01-15] MEDS: nivolumab 240 MG in sodium chloride 0.9% 250 ML 548 MG IV (12:13)
[2022-01-15 13:10] VITALS: BP 123/81; PULSE 78; RESP 18; TEMP 36.1; O2SAT 99
== END 2022-01-15 23:59 | disposition home or self-care (01) ==
PROVIDERS: Nurse Practitioner Family; PCP Family Medicine; Visit Provider Internal Medicine Hematology & Oncology
DX: Z53.9 Procedure and treatment not carried out, unspecified reason (principal); Z51.12 Encounter for antineoplastic immunotherapy; C43.59 Malignant melanoma of other part of trunk; R53.83 Other fatigue; C77.3 Secondary and unspecified malignant neoplasm of axilla and upper limb lymph nodes; Z79.899 Other long term (current) drug therapy; Z79.52 Long term (current) use of systemic steroids
CPT/HCPCS: 36415; 70553; 80053; 84443; 85025; 96413; 99214; 99215; J7050; J9299

== ENCOUNTER → 2022-01-27 08:00 | Outpatient (BNVA) | payer MEDICAID, SELFPAY | PROVIDERS: PCP Family Medicine; Visit Provider Surgery | DX: C43.9 Malignant melanoma of skin, unspecified (principal) | CPT/HCPCS: 99024 ==

== ENCOUNTER 2022-02-12 09:00 | Oncology outpatient (recurring) (ONCR) | payer MEDICAID, SELFPAY ==
[2022-01-29 08:43] VITALS: BMI 30.7
[2022-01-29 09:02] LABS: Basophils % 0.5 %; Eosinophils # 0.2 10^3/uL (0.0-0.8); Eosinophils % 2.3 %; Hematocrit 40.7 % (42.0-52.0); Hemoglobin 13.3 g/dL (11.7-16.6); Lymphocytes # 1.1 10^3/uL (0.8-4.8); Lymphocytes % 13.5 %; Mean Corpuscular HGB Conc 32.7 g/dL (30.0-36.0); Mean Corpuscular Hemoglobin 28.1 pg (28.0-34.0); Mean Corpuscular Volume 85.9 fl (80-94); Mean Platelet Volume 10.3 fL (7.4-10.4); Monocytes # 0.6 10^3/uL (0.2-0.9); Monocytes % 6.6 %; Neutrophils # 6.41 10^3/uL (1.8-7.7); Neutrophils % 76.9 %; Nucleated Red Blood Cells % 0 %; Platelet Count 310 10^3/cmm (130-400); Red Blood Count 4.74 10^6/uL (4.1-5.3); Red Cell Distribution Width 13.7 % (12.1-15.1); White Blood Count 8.3 10^3/uL (4.0-10.0)
[2022-01-29 09:24] LABS: Alanine Aminotransferase 11 U/L (0-41); Albumin Level 3.5 g/dL (3.5-5.2); Alkaline Phosphatase 105 U/L (40-130); Aspartate Amino Transferase 17 U/L (0-40); Chloride 101 mmol/L (98-107); Glucose 150 mg/dL (65-115); Potassium 3.5 mmol/L (3.5-5.1); Sodium 140 mmol/L (136-145); Thyroid Stimulating Hormone 1.32 uIU/mL (0.27-4.20)
[2022-01-29 09:39] LABS: Anion Gap 16.5 (5-19); Blood Urea Nitrogen 11 mg/dL (8-23); Calcium 9.2 mg/dL (8.5-10.5); Carbon Dioxide 26 mmol/L (22-29); Globulin 3.1 g/dL (1.3-4.6); Glomerular Filtration Rate 85.8 mL/min (90-130); Osmolality Calculated 292 mOsm/kg (285-295); Total Bilirubin 0.3 mg/dL (0.15-1.2); Total Protein 6.6 g/dL (6.6-8.7)
[2022-01-29] MEDS: sodium chloride 0.9% 250 ML 75 ML IV (11:41)
[2022-01-29] MEDS: nivolumab 240 MG in sodium chloride 0.9% 250 ML 548 MG IV (12:03)
[2022-01-29 13:00] VITALS: BP 108/70; PULSE 66; RESP 16; TEMP 36.2; O2SAT 99
[2022-02-11 08:20] VITALS: BMI 30.7
[2022-02-11 08:33] LABS: Basophils % 0.4 %; Eosinophils # 0.3 10^3/uL (0.0-0.8); Eosinophils % 2.9 %; Hematocrit 40.5 % (42.0-52.0); Hemoglobin 13.3 g/dL (11.7-16.6); Lymphocytes # 1.1 10^3/uL (0.8-4.8); Lymphocytes % 12.5 %; Mean Corpuscular HGB Conc 32.8 g/dL (30.0-36.0); Mean Corpuscular Hemoglobin 27.9 pg (28.0-34.0); Mean Corpuscular Volume 85.1 fl (80-94); Mean Platelet Volume 10.3 fL (7.4-10.4); Monocytes # 0.9 10^3/uL (0.2-0.9); Monocytes % 9.9 %; Neutrophils # 6.35 10^3/uL (1.8-7.7); Neutrophils % 74.1 %; Nucleated Red Blood Cells % 0 %; Platelet Count 276 10^3/cmm (130-400); Red Blood Count 4.76 10^6/uL (4.1-5.3); Red Cell Distribution Width 14.2 % (12.1-15.1); White Blood Count 8.6 10^3/uL (4.0-10.0)
[2022-02-11 09:01] LABS: Alanine Aminotransferase 8 U/L (0-41); Albumin Level 3.5 g/dL (3.5-5.2); Alkaline Phosphatase 110 U/L (40-130); Blood Urea Nitrogen 10 mg/dL (8-23); Calcium 9.1 mg/dL (8.5-10.5); Carbon Dioxide 29 mmol/L (22-29); Chloride 104 mmol/L (98-107); Creatinine Clr Calc Pharmacy 110.0026; Globulin 3.5 g/dL (1.3-4.6); Glomerular Filtration Rate 98.3 mL/min (90-130); Glucose 109 mg/dL (65-115); Osmolality Calculated 294 mOsm/kg (285-295); Sodium 142 mmol/L (136-145); Thyroid Stimulating Hormone 1.23 uIU/mL (0.27-4.20); Total Bilirubin 0.4 mg/dL (0.15-1.2)
[2022-02-11 09:08] LABS: Aspartate Amino Transferase 26 U/L (0-40)
[2022-02-11 09:20] LABS: Anion Gap 13.5 (5-19); Potassium 4.5 mmol/L (3.5-5.1)
[2022-02-12] MEDS: sodium chloride 0.9% 250 ML 100 ML IV (09:17)
[2022-02-12] MEDS: nivolumab 240 MG in sodium chloride 0.9% 250 ML 548 MG IV (09:38)
[2022-02-12 10:23] VITALS: BP 107/71; PULSE 59; RESP 18; TEMP 36.3; O2SAT 98
== END 2022-02-14 23:59 | disposition home or self-care (01) ==
PROVIDERS: PCP Family Medicine; Visit Provider Internal Medicine Hematology & Oncology
DX: Z51.12 Encounter for antineoplastic immunotherapy (principal); C43.59 Malignant melanoma of other part of trunk; C77.3 Secondary and unspecified malignant neoplasm of axilla and upper limb lymph nodes; M19.90 Unspecified osteoarthritis, unspecified site; Z79.899 Other long term (current) drug therapy
CPT/HCPCS: 36591; 80053; 84443; 85025; 96413; 99214; 99215; J7050; J9299

== ENCOUNTER → 2022-02-24 08:07 | Outpatient (BNVA) | payer MEDICAID, SELFPAY | PROVIDERS: PCP Family Medicine; Visit Provider Surgery | DX: Z98.890 Other specified postprocedural states (principal) | CPT/HCPCS: 99024 ==

== ENCOUNTER 2022-03-12 11:00 | Oncology outpatient (recurring) (ONCR) | payer MEDICAID, SELFPAY ==
[2022-02-25] MEDS: alteplase 1 mg/mL SDV 2 mL 2 MG INTRACATH (10:23)
[2022-02-25 12:22] LABS: Alanine Aminotransferase 11 U/L (0-41); Albumin Level 3.3 g/dL (3.5-5.2); Alkaline Phosphatase 104 U/L (40-130); Anion Gap 9.9 (5-19); Aspartate Amino Transferase 21 U/L (0-40); Blood Urea Nitrogen 11 mg/dL (8-23); Carbon Dioxide 30 mmol/L (22-29); Chloride 99 mmol/L (98-107); Globulin 3.2 g/dL (1.3-4.6); Glomerular Filtration Rate 114.6 mL/min (90-130); Glucose 112 mg/dL (65-115); Osmolality Calculated 280 mOsm/kg (285-295); Potassium 3.9 mmol/L (3.5-5.1); Sodium 135 mmol/L (136-145); Thyroid Stimulating Hormone 0.61 uIU/mL (0.27-4.20); Total Bilirubin 0.2 mg/dL (0.15-1.2); Total Protein 6.5 g/dL (6.6-8.7)
[2022-02-25 13:10] LABS: Basophils # 0.1 10^3/uL (0.0-0.1); Basophils % 0.7 %; Eosinophils # 0.3 10^3/uL (0.0-0.8); Eosinophils % 3.3 %; Hematocrit 36.9 % (42.0-52.0); Hemoglobin 12.5 g/dL (11.7-16.6); Lymphocytes # 1.1 10^3/uL (0.8-4.8); Lymphocytes % 13.5 %; Mean Corpuscular HGB Conc 33.9 g/dL (30.0-36.0); Mean Corpuscular Hemoglobin 28.8 pg (28.0-34.0); Mean Platelet Volume 10.3 fL (7.4-10.4); Monocytes # 1.1 10^3/uL (0.2-0.9); Monocytes % 13.5 %; Neutrophils # 5.82 10^3/uL (1.8-7.7); Neutrophils % 68.6 %; Nucleated Red Blood Cells % 0 %; Platelet Count 300 10^3/cmm (130-400); Red Blood Count 4.34 10^6/uL (4.1-5.3); Red Cell Distribution Width 14.2 % (12.1-15.1); White Blood Count 8.5 10^3/uL (4.0-10.0)
[2022-02-26] MEDS: sodium chloride 0.9% 250 ML 100 ML IV (10:22)
[2022-02-26] MEDS: nivolumab 240 MG in sodium chloride 0.9% 250 ML 548 MG IV (11:10)
[2022-03-11 10:36] LABS: Basophils % 0.4 %; Eosinophils # 0.2 10^3/uL (0.0-0.8); Eosinophils % 1.9 %; Hematocrit 39.9 % (42.0-52.0); Hemoglobin 13.2 g/dL (11.7-16.6); Lymphocytes # 1.3 10^3/uL (0.8-4.8); Lymphocytes % 14.1 %; Mean Corpuscular HGB Conc 33.1 g/dL (30.0-36.0); Mean Corpuscular Hemoglobin 28.3 pg (28.0-34.0); Mean Corpuscular Volume 85.4 fl (80-94); Mean Platelet Volume 10.1 fL (7.4-10.4); Monocytes # 0.7 10^3/uL (0.2-0.9); Monocytes % 7.3 %; Neutrophils # 6.81 10^3/uL (1.8-7.7); Nucleated Red Blood Cells % 0 %; Platelet Count 340 10^3/cmm (130-400); Red Blood Count 4.67 10^6/uL (4.1-5.3); Red Cell Distribution Width 14.3 % (12.1-15.1)
[2022-03-11 11:07] LABS: Alanine Aminotransferase 14 U/L (0-41); Albumin Level 3.7 g/dL (3.5-5.2); Alkaline Phosphatase 113 U/L (40-130); Anion Gap 13.8 (5-19); Aspartate Amino Transferase 18 U/L (0-40); Blood Urea Nitrogen 19 mg/dL (8-23); Calcium 8.9 mg/dL (8.5-10.5); Carbon Dioxide 28 mmol/L (22-29); Chloride 102 mmol/L (98-107); Globulin 3.7 g/dL (1.3-4.6); Glucose 190 mg/dL (65-115); Osmolality Calculated 297 mOsm/kg (285-295); Potassium 3.8 mmol/L (3.5-5.1); Sodium 140 mmol/L (136-145); Thyroid Stimulating Hormone 0.64 uIU/mL (0.27-4.20); Total Bilirubin 0.3 mg/dL (0.15-1.2); Total Protein 7.4 g/dL (6.6-8.7)
[2022-03-12] MEDS: sodium chloride 0.9% 250 ML 75 ML IV (11:46)
[2022-03-12] MEDS: nivolumab 240 MG in sodium chloride 0.9% 250 ML 548 MG IV (12:04)
[2022-03-12 12:46] VITALS: BP 100/68; PULSE 62; RESP 16; TEMP 36.1; O2SAT 99
== END 2022-03-13 09:22 | disposition home or self-care (01) ==
PROVIDERS: PCP Family Medicine; Visit Provider Internal Medicine Hematology & Oncology
DX: Z51.12 Encounter for antineoplastic immunotherapy (principal); C43.59 Malignant melanoma of other part of trunk
CPT/HCPCS: 36591; 36593; 80053; 84443; 85025; 96413; 99214; J2997; J7050; J9299

== ENCOUNTER 2022-04-04 14:56 | Outpatient (CLI) | payer MEDICAID, SELFPAY ==
--- NOTE | 2022-04-04 15:15 | USR_ITS ---
PROCEDURE INFORMATION: Exam: US Soft Tissue Head and Neck, Soft Tissue Exam date and time: 04/04/2022 3:52 PM Age: 62 years old Clinical indication: Abnormal findings; S/P melanoma removal; Prior surgery; Surgery date: <1 month; Additional info: Post op seroma on back TECHNIQUE: Imaging protocol: Real-time ultrasound scan of the head and neck with image documentation. Exam focused on the soft tissue in the region of clinical concern. COMPARISON: No relevant prior studies available. FINDINGS: Lymph nodes: See under soft tissues . Soft tissues: Oval hypoechoic focus with a few internal septations in the subcutaneous tissues just under the skin of the right paramidline mid back. This measures 1.8 x 1.1 x 2.0 cm. There is no flow on Doppler imaging. A 2nd, larger complex hypoechoic fluid collection with internal septations is seen just inferior and lateral to the 1st in the right paramidline mid back. This measures 7.4 x 3.1 x 8.1 cm. US/US soft tissue/extremity [id number] IMPRESSION: 1. Large fluid collection in the mid back just to the right of midline likely represents a resolving postoperative hematoma or seroma. 2. Second hypoechoic focus just superior and medial to the 1st May represent a resolving hematoma or seroma, however a lymph node is not definitely rule out. Follow-up imaging is recommended to ensure resolution of these findings.
== END 2022-04-04 14:57 | disposition home or self-care (01) ==
PROVIDERS: PCP Family Medicine; Visit Provider Surgery
DX: C43.9 Malignant melanoma of skin, unspecified (principal)
CPT/HCPCS: 76882

== ENCOUNTER → 2022-04-07 15:24 | Outpatient (BNVA) | payer MEDICAID, SELFPAY | PROVIDERS: PCP Family Medicine; Visit Provider Surgery | DX: Z09 Encounter for follow-up examination after completed treatment for conditions other than malignant neoplasm (principal); C43.9 Malignant melanoma of skin, unspecified | CPT/HCPCS: 99213 ==

== ENCOUNTER 2022-04-09 10:30 | Oncology outpatient (recurring) (ONCR) | payer MEDICAID, SELFPAY ==
[2022-03-25 10:02] LABS: Basophils % 0.5 %; Eosinophils # 0.2 10^3/uL (0.0-0.8); Eosinophils % 2.2 %; Hematocrit 41.4 % (42.0-52.0); Hemoglobin 13.7 g/dL (11.7-16.6); Lymphocytes # 1.3 10^3/uL (0.8-4.8); Lymphocytes % 15.2 %; Mean Corpuscular HGB Conc 33.1 g/dL (30.0-36.0); Mean Corpuscular Hemoglobin 28.2 pg (28.0-34.0); Mean Corpuscular Volume 85.4 fl (80-94); Mean Platelet Volume 10.2 fL (7.4-10.4); Monocytes # 0.8 10^3/uL (0.2-0.9); Monocytes % 9.6 %; Neutrophils # 6.13 10^3/uL (1.8-7.7); Neutrophils % 72.3 %; Nucleated Red Blood Cells % 0 %; Platelet Count 268 10^3/cmm (130-400); Red Blood Count 4.85 10^6/uL (4.1-5.3); White Blood Count 8.5 10^3/uL (4.0-10.0)
[2022-03-25 10:33] LABS: Alanine Aminotransferase 17 U/L (0-41); Albumin Level 3.8 g/dL (3.5-5.2); Alkaline Phosphatase 120 U/L (40-130); Anion Gap 13.7 (5-19); Aspartate Amino Transferase 19 U/L (0-40); Blood Urea Nitrogen 15 mg/dL (8-23); Calcium 9.3 mg/dL (8.5-10.5); Carbon Dioxide 28 mmol/L (22-29); Chloride 97 mmol/L (98-107); Globulin 3.3 g/dL (1.3-4.6); Glucose 92 mg/dL (65-115); Osmolality Calculated 280 mOsm/kg (285-295); Potassium 3.7 mmol/L (3.5-5.1); Sodium 135 mmol/L (136-145); Thyroid Stimulating Hormone 0.76 uIU/mL (0.27-4.20); Total Bilirubin 0.3 mg/dL (0.15-1.2); Total Protein 7.1 g/dL (6.6-8.7)
[2022-03-26] MEDS: nivolumab 240 MG in sodium chloride 0.9% 250 ML 548 MG IV (11:14)
[2022-03-26 11:57] VITALS: BP 99/69; PULSE 58; RESP 16; TEMP 35.6; O2SAT 98
[2022-03-26] MEDS: alteplase 1 mg/mL SDV 2 mL 2 MG INTRACATH (13:13)
[2022-04-08 10:59] LABS: Basophils % 0.4 %; Eosinophils # 0.2 10^3/uL (0.0-0.8); Eosinophils % 1.9 %; Hemoglobin 13.9 g/dL (11.7-16.6); Lymphocytes # 1.4 10^3/uL (0.8-4.8); Lymphocytes % 13.8 %; Mean Corpuscular HGB Conc 33.1 g/dL (30.0-36.0); Mean Corpuscular Hemoglobin 28.4 pg (28.0-34.0); Mean Corpuscular Volume 85.7 fl (80-94); Mean Platelet Volume 10.1 fL (7.4-10.4); Monocytes # 0.9 10^3/uL (0.2-0.9); Monocytes % 9.5 %; Neutrophils # 7.36 10^3/uL (1.8-7.7); Neutrophils % 74.1 %; Nucleated Red Blood Cells % 0 %; Platelet Count 295 10^3/cmm (130-400); Red Cell Distribution Width 13.5 % (12.1-15.1); White Blood Count 9.9 10^3/uL (4.0-10.0)
[2022-04-08 11:24] LABS: Alanine Aminotransferase 14 U/L (0-41); Albumin Level 3.5 g/dL (3.5-5.2); Alkaline Phosphatase 115 U/L (40-130); Aspartate Amino Transferase 16 U/L (0-40); Blood Urea Nitrogen 13 mg/dL (8-23); Calcium 9.3 mg/dL (8.5-10.5); Carbon Dioxide 28 mmol/L (22-29); Chloride 100 mmol/L (98-107); Globulin 3.7 g/dL (1.3-4.6); Glomerular Filtration Rate 114.3 mL/min (90-130); Glucose 90 mg/dL (65-115); Osmolality Calculated 284 mOsm/kg (285-295); Sodium 137 mmol/L (136-145); Thyroid Stimulating Hormone 0.72 uIU/mL (0.27-4.20); Total Bilirubin 0.3 mg/dL (0.15-1.2); Total Protein 7.2 g/dL (6.6-8.7)
[2022-04-09] MEDS: nivolumab 240 MG in sodium chloride 0.9% 250 ML 548 MG IV (13:29)
== END 2022-04-14 11:02 | disposition home or self-care (01) ==
PROVIDERS: Nurse Practitioner; PCP Family Medicine; Visit Provider Internal Medicine Hematology & Oncology
DX: Z51.12 Encounter for antineoplastic immunotherapy (principal); C43.59 Malignant melanoma of other part of trunk; C77.3 Secondary and unspecified malignant neoplasm of axilla and upper limb lymph nodes; Z79.899 Other long term (current) drug therapy
CPT/HCPCS: 36591; 36593; 80053; 84443; 85025; 96413; 99214; J2997; J7050; J9299

== ENCOUNTER → 2022-05-14 10:12 | Outpatient (BNVA) | payer MEDICAID, SELFPAY | PROVIDERS: PCP Family Medicine; Visit Provider Internal Medicine Hematology & Oncology | DX: C43.9 Malignant melanoma of skin, unspecified (principal) | CPT/HCPCS: 99214 ==

== ENCOUNTER 2022-05-16 10:00 | Oncology outpatient (recurring) (ONCR) | payer MEDICAID, SELFPAY ==
[2022-05-14 07:22] LABS: Basophils % 0.3 %; Eosinophils # 0.1 10^3/uL (0.0-0.8); Hematocrit 43.1 % (42.0-52.0); Hemoglobin 14.4 g/dL (11.7-16.6); Lymphocytes # 1.3 10^3/uL (0.8-4.8); Lymphocytes % 10.7 %; Mean Corpuscular HGB Conc 33.4 g/dL (30.0-36.0); Mean Corpuscular Hemoglobin 28.3 pg (28.0-34.0); Mean Corpuscular Volume 84.8 fl (80-94); Mean Platelet Volume 10.4 fL (7.4-10.4); Monocytes # 1.5 10^3/uL (0.2-0.9); Monocytes % 11.7 %; Neutrophils # 9.43 10^3/uL (1.8-7.7); Nucleated Red Blood Cells % 0 %; Platelet Count 287 10^3/cmm (130-400); Red Blood Count 5.08 10^6/uL (4.1-5.3); Red Cell Distribution Width 13.3 % (12.1-15.1); White Blood Count 12.4 10^3/uL (4.0-10.0)
[2022-05-14 09:05] LABS: Alanine Aminotransferase 43 U/L (0-41); Albumin Level 4.1 g/dL (3.5-5.2); Alkaline Phosphatase 162 U/L (40-130); Blood Urea Nitrogen 11 mg/dL (8-23); Carbon Dioxide 30 mmol/L (22-29); Chloride 95 mmol/L (98-107); Globulin 3.9 g/dL (1.3-4.6); Glucose 104 mg/dL (65-115); Osmolality Calculated 278 mOsm/kg (285-295); Sodium 134 mmol/L (136-145); Thyroid Stimulating Hormone 1.09 uIU/mL (0.27-4.20); Total Bilirubin 0.5 mg/dL (0.15-1.2)
[2022-05-14 09:09] LABS: Aspartate Amino Transferase 29 U/L (0-40)
[2022-05-16] MEDS: nivolumab 240 MG in sodium chloride 0.9% 250 ML 548 MG IV (10:21)
[2022-05-16 11:11] VITALS: BP 104/71; PULSE 67; RESP 16; TEMP 35.8; O2SAT 98
== END 2022-05-17 23:59 | disposition home or self-care (01) ==
PROVIDERS: Nurse Practitioner; PCP Family Medicine; Visit Provider Internal Medicine Hematology & Oncology
DX: Z51.12 Encounter for antineoplastic immunotherapy (principal); C43.59 Malignant melanoma of other part of trunk; C77.8 Secondary and unspecified malignant neoplasm of lymph nodes of multiple regions; C78.7 Secondary malignant neoplasm of liver and intrahepatic bile duct; C79.89 Secondary malignant neoplasm of other specified sites; Z79.899 Other long term (current) drug therapy
CPT/HCPCS: 36415; 80053; 84443; 85025; 96365; 96413; J7050; J9299

== ENCOUNTER 2022-05-31 09:50 | Outpatient (CLI) | payer MEDICAID, SELFPAY ==
--- NOTE | 2022-05-31 | PETR_ITS ---
PROCEDURE INFORMATION: Exam: PET/CT Skull Base to Mid-thigh Exam date and time: 05/31/2022 11:08 AM Age: 62 years old Clinical indication: Condition or disease; Follow-up oncological assessment; Condition/disease: Malignant neoplasm of the skin, elevated prostate specific antigen; Patient HX: Melanoma located middle back, right axilla area; Additional info: Malignant melanoma of skin LABS AND CLINICAL REPORTS: Glucose: 85 mg/dl Treatment strategy for malignancy (PET staging): Restaging (PS) TECHNIQUE: Imaging protocol: Following at least four-hour fasting and following the injection of F-18-FDG, low dose CT images were obtained. Then, PET images were obtained. Attenuation corrected images were constructed using the CT scan. Fused images of PET and CT were reviewed. The standardized uptake values (SUV) reported below are maximum values within a region of interest, expressed in gm/ml. Exam includes orbital meatal line to mid-thigh. Radiopharmaceutical: 14.75 mCi F-18 FDG (Fluorodeoxyglucose), IV. Time of imaging post radiopharmaceutical administration: 70.8 minutes. Injection site: Not specified. COMPARISON: PET/CT 12/14/2021. Images are available, but the report is not. It has been requested. FINDINGS: Tubes, catheters and devices: A right chest port is in good position with its tip near the SVC/RA junction. Brain: Visualized brain has normal physiologic uptake. Pharynx: No abnormal uptake. Larynx: No abnormal uptake. Lungs, pleura and trachea: No abnormal uptake. No pulmonary nodules. Heart: Normal physiologic uptake. Mediastinal space: No abnormal uptake. Liver: No abnormal uptake. Gallbladder and bile ducts: No abnormal uptake. Pancreas: No abnormal uptake. Spleen: Multiple splenic metastases are substantially larger and more FDG avid. Their SUVmax is 17.4 (previously 6.2). Adrenal glands: No abnormal uptake. Kidneys and ureters: Normal physiologic uptake. Stomach and bowel: No abnormal uptake. Vasculature: No abnormal uptake. Lymph nodes: A new enlarged FDG avid left medial supraclavicular lymph node is 3.1 x 2.6 cm. Its SUVmax is 17.5. Right axillary lymphadenopathy is larger and more FDG avid. Its SUVmax is 21.9 (previously 19.8). Left axillary lymphadenopathy is larger and more FDG avid. Its SUV max is 17.8 (previously 15.4). Moderate FDG avidity within mediastinal and bilateral hilar lymph nodes is similar to the prior PET/CT on 12/14/2021. SUV max in the right hilum is 5.1 (previously 5.5). SUV max in a subcarinal lymph node is 5.0 (previously 4.6). SUV max in the left pulmonary hilum is 4.4 (previously 4.8). Bones/joints: A new metastasis in the glenoid process of the right scapula is 1.9 x 3.3 cm. Its SUV max is 16.0. A new metastasis in the proximal left femoral diaphysis, just below the level of the lesser trochanter, is 1.6 cm. Its SUVmax is 15.3. Diffuse mildly increased uptake within numerous thoracic and lumbar vertebral bodies are suspicious for metastases. For example, SUV max in the L4 vertebral body is 4.0 (previously 2.7). Alternatively, the diffuse increased bone marrow uptake may be due G-CSF (granulocyte colony stimulating factor) if taken within the past month. Soft tissues: No metabolically active areas. [id number] IMPRESSION: Progressive disease. Numerous metastases in the spleen, lymph nodes and skeleton have increased in number, size and FDG avidity.
== END 2022-05-31 09:51 | disposition home or self-care (01) ==
LOC: RAD 06-02 06:15
PROVIDERS: PCP Family Medicine; Visit Provider Internal Medicine Hematology & Oncology
DX: C43.9 Malignant melanoma of skin, unspecified (principal)
CPT/HCPCS: 78815; A9552

== ENCOUNTER 2022-06-05 10:30 | Oncology outpatient (recurring) (ONCR) | payer MEDICAID, SELFPAY ==
[2022-06-04 09:09] LABS: Basophils % 0.3 %; Eosinophils # 0.1 10^3/uL (0.0-0.8); Eosinophils % 1.1 %; Hematocrit 41.1 % (42.0-52.0); Hemoglobin 13.6 g/dL (11.7-16.6); Lymphocytes # 1.2 10^3/uL (0.8-4.8); Lymphocytes % 12.9 %; Mean Corpuscular HGB Conc 33.1 g/dL (30.0-36.0); Mean Corpuscular Hemoglobin 27.9 pg (28.0-34.0); Mean Corpuscular Volume 84.2 fl (80-94); Mean Platelet Volume 10.1 fL (7.4-10.4); Monocytes # 0.9 10^3/uL (0.2-0.9); Monocytes % 9.5 %; Neutrophils # 6.79 10^3/uL (1.8-7.7); Nucleated Red Blood Cells % 0 %; Platelet Count 275 10^3/cmm (130-400); Red Blood Count 4.88 10^6/uL (4.1-5.3); Red Cell Distribution Width 13.2 % (12.1-15.1); White Blood Count 8.9 10^3/uL (4.0-10.0)
[2022-06-04 09:38] LABS: Alanine Aminotransferase 15 U/L (0-41); Albumin Level 3.8 g/dL (3.5-5.2); Alkaline Phosphatase 120 U/L (40-130); Anion Gap 12.9 (5-19); Aspartate Amino Transferase 19 U/L (0-40); Blood Urea Nitrogen 12 mg/dL (8-23); Calcium 8.8 mg/dL (8.5-10.5); Carbon Dioxide 27 mmol/L (22-29); Chloride 102 mmol/L (98-107); Globulin 3.1 g/dL (1.3-4.6); Glucose 98 mg/dL (65-115); Osmolality Calculated 286 mOsm/kg (285-295); Potassium 3.9 mmol/L (3.5-5.1); Sodium 138 mmol/L (136-145); Total Bilirubin 0.3 mg/dL (0.15-1.2); Total Protein 6.9 g/dL (6.6-8.7)
[2022-06-04 10:55] LABS: Prostate Specific AG Urology 4.64 ng/mL (0-4)
--- NOTE | 2022-06-04 11:41 | PC.NURSE ---
Lab results shown to Dr. Rodriguez. Ok per Dr. Rodriguez. Pt has office visit with Dr. christie a.m.Pt voiced no complaints./lc
== END 2022-06-17 23:59 | disposition home or self-care (01) ==
PROVIDERS: Urology; PCP Family Medicine; Visit Provider Internal Medicine Hematology & Oncology
DX: Z51.12 Encounter for antineoplastic immunotherapy (principal); C43.59 Malignant melanoma of other part of trunk; C43.9 Malignant melanoma of skin, unspecified; R97.20 Elevated prostate specific antigen [PSA]; C77.8 Secondary and unspecified malignant neoplasm of lymph nodes of multiple regions; C78.7 Secondary malignant neoplasm of liver and intrahepatic bile duct; C79.89 Secondary malignant neoplasm of other specified sites; C79.51 Secondary malignant neoplasm of bone; Z79.899 Other long term (current) drug therapy
CPT/HCPCS: 36591; 80053; 84153; 84443; 85025; 99214

== ENCOUNTER → 2022-06-19 08:49 | Outpatient (BNVA) | payer MEDICAID, SELFPAY | PROVIDERS: PCP Family Medicine; Visit Provider Internal Medicine Hematology & Oncology | DX: C43.59 Malignant melanoma of other part of trunk (principal); C77.8 Secondary and unspecified malignant neoplasm of lymph nodes of multiple regions; C78.7 Secondary malignant neoplasm of liver and intrahepatic bile duct; C79.89 Secondary malignant neoplasm of other specified sites; C79.51 Secondary malignant neoplasm of bone; Z85.828 Personal history of other malignant neoplasm of skin; Z85.840 Personal history of malignant neoplasm of eye; Z79.899 Other long term (current) drug therapy | CPT/HCPCS: 99214 ==

== ENCOUNTER → 2022-06-26 10:50 | Outpatient (BNVA) | payer MEDICAID, SELFPAY | PROVIDERS: PCP Family Medicine; Visit Provider Urology | DX: R97.20 Elevated prostate specific antigen [PSA] (principal) | CPT/HCPCS: 81003; 99213 ==

== ENCOUNTER 2022-07-02 09:47 | Oncology outpatient (recurring) (ONCR) | payer MEDICAID, SELFPAY ==
[2022-07-02 10:30] LABS: Basophils % 0.2 %; Eosinophils # 0.1 10^3/uL (0.0-0.8); Eosinophils % 0.9 %; Hematocrit 40.7 % (42.0-52.0); Hemoglobin 13.3 g/dL (11.7-16.6); Lymphocytes # 1.1 10^3/uL (0.8-4.8); Lymphocytes % 10.7 %; Mean Corpuscular HGB Conc 32.7 g/dL (30.0-36.0); Mean Corpuscular Hemoglobin 27.5 pg (28.0-34.0); Mean Corpuscular Volume 84.3 fl (80-94); Mean Platelet Volume 10.3 fL (7.4-10.4); Monocytes # 1.1 10^3/uL (0.2-0.9); Monocytes % 10.6 %; Neutrophils # 8.07 10^3/uL (1.8-7.7); Neutrophils % 77.2 %; Nucleated Red Blood Cells % 0 %; Platelet Count 247 10^3/cmm (130-400); Red Blood Count 4.83 10^6/uL (4.1-5.3); Red Cell Distribution Width 13.5 % (12.1-15.1); White Blood Count 10.5 10^3/uL (4.0-10.0)
[2022-07-02 10:46] LABS: Alanine Aminotransferase 9 U/L (0-41); Albumin Level 3.6 g/dL (3.5-5.2); Alkaline Phosphatase 103 U/L (40-130); Anion Gap 12.5 (5-19); Aspartate Amino Transferase 16 U/L (0-40); Blood Urea Nitrogen 17 mg/dL (8-23); Calcium 9.1 mg/dL (8.5-10.5); Carbon Dioxide 29 mmol/L (22-29); Chloride 100 mmol/L (98-107); Globulin 3.2 g/dL (1.3-4.6); Glucose 99 mg/dL (65-115); Osmolality Calculated 288 mOsm/kg (285-295); Potassium 3.5 mmol/L (3.5-5.1); Sodium 138 mmol/L (136-145); Total Bilirubin 0.5 mg/dL (0.15-1.2); Total Protein 6.8 g/dL (6.6-8.7)
[2022-07-02] MEDS: acetaminophen 325 mg Tablet 650 MG PO (13:18)
[2022-07-02] MEDS: dexamethasone 20 MG in sodium chloride 0.9% 50 ML 188 MG IV (13:18)
[2022-07-02] MEDS: sodium chloride 0.9% 250 ML 75 ML IV (13:18)
[2022-07-02] MEDS: famotidine 20 mg/2 mL INJ IVP (13:19)
== END 2022-07-02 13:18 | disposition home or self-care (01) ==
PROVIDERS: PCP Family Medicine; Visit Provider Internal Medicine Hematology & Oncology
DX: Z51.12 Encounter for antineoplastic immunotherapy (principal); C43.59 Malignant melanoma of other part of trunk; C77.8 Secondary and unspecified malignant neoplasm of lymph nodes of multiple regions; C78.7 Secondary malignant neoplasm of liver and intrahepatic bile duct; C79.89 Secondary malignant neoplasm of other specified sites; C79.51 Secondary malignant neoplasm of bone; Z79.899 Other long term (current) drug therapy
CPT/HCPCS: 80053; 85025; J1100; J3490; J7050; J9228; J9299

== ENCOUNTER 2022-07-04 09:18 | Outpatient (CLI) | payer MEDICAID, SELFPAY ==
[2022-07-04] MEDS: gadobenate dimeglumine 20 mL vial IV (10:22)
--- NOTE | 2022-07-04 16:45 | MR_ITS ---
WS: [id number] MRI HEAD WITH CONTRAST TECHNIQUE: Sagittal T1, T2 axial, T2 axial FLAIR, axial susceptibility weighted imaging, axial diffus ion weighted images, and coronal T2 images were obtained. Pre and post-T1 axial and post T1 coronal i mages. ADC and FSPGR images. CLINICAL INFORMATION: Malignant melanoma COMPARISON: MRI December 17, 2021 FINDINGS: No evidence of restricted diffusion to suggest acute ischemia. Ventricular system and basal cisterns are patent. No suspicious intracranial signal abnormalities. Normal bang-white differentiation. Emilia l posterior fossa. Normal vascular flow voids at the skull base. No extra-axial fluid collections. No evidence of mass or mass effect. Paranasal sinuses and mastoid air cells well aerated. Normal expert witness ior nasopharynx. No hemosiderin on susceptibly weighted images. Normal optic chiasm and pituitary infundibulum. Temporal lobes and hippocampal formations are normal in appearance. No abnormal gadolinium enhancement. No evidence of enhancing intracranial metastatic disease. Normal optic chiasm and pituitary infundibulum. Normal cavernous sinuses and Meckel's cave. Stable T2 hyperi ntensity with lesion superior parotid gland unchanged measuring 10 x 8 mm. 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 MR/MR head wo/w con [id number] IMPRESSION: 1. No abnormal intracranial enhancement to indicate metastatic disease. 2. No suspicious intracranial lesions. 3. No restricted diffusion to suggest acute ischemia. 4. No hemosiderin on the susceptibly weighted images. 5. Hazy enhancing lesion RIGHT cerebellum most compatible with benign venous a ngioma. 6. Stable T2 hyperintense nonenhancing LEFT parotid lesion measuring 10 x 8 m m unchanged.
== END 2022-07-04 09:19 | disposition home or self-care (01) ==
LOC: RAD 09:22
PROVIDERS: PCP Family Medicine; Visit Provider Internal Medicine Hematology & Oncology
DX: C43.9 Malignant melanoma of skin, unspecified (principal)
CPT/HCPCS: 70553; A9577

== ENCOUNTER 2022-07-15 10:30 | Oncology outpatient (recurring) (ONCR) | payer MEDICAID, SELFPAY ==
[2022-07-08 12:52] LABS: Basophils % 0.3 %; Eosinophils # 0.2 10^3/uL (0.0-0.8); Hematocrit 40.6 % (42.0-52.0); Hemoglobin 13.1 g/dL (11.7-16.6); Lymphocytes # 1.2 10^3/uL (0.8-4.8); Lymphocytes % 12.8 %; Mean Corpuscular HGB Conc 32.3 g/dL (30.0-36.0); Mean Corpuscular Hemoglobin 27.1 pg (28.0-34.0); Mean Corpuscular Volume 83.9 fl (80-94); Mean Platelet Volume 10.4 fL (7.4-10.4); Monocytes # 0.8 10^3/uL (0.2-0.9); Monocytes % 8.7 %; Neutrophils % 75.8 %; Nucleated Red Blood Cells % 0 %; Platelet Count 278 10^3/cmm (130-400); Red Blood Count 4.84 10^6/uL (4.1-5.3); Red Cell Distribution Width 13.2 % (12.1-15.1); White Blood Count 9.2 10^3/uL (4.0-10.0)
[2022-07-08 13:11] LABS: Alanine Aminotransferase 56 U/L (0-41); Albumin Level 3.4 g/dL (3.5-5.2); Alkaline Phosphatase 133 U/L (40-130); Anion Gap 13.4 (5-19); Aspartate Amino Transferase 42 U/L (0-40); Blood Urea Nitrogen 15 mg/dL (8-23); Calcium 8.9 mg/dL (8.5-10.5); Carbon Dioxide 29 mmol/L (22-29); Chloride 98 mmol/L (98-107); Glucose 97 mg/dL (65-115); Osmolality Calculated 285 mOsm/kg (285-295); Potassium 3.4 mmol/L (3.5-5.1); Sodium 137 mmol/L (136-145); Total Bilirubin 0.3 mg/dL (0.15-1.2); Total Protein 6.4 g/dL (6.6-8.7)
[2022-07-15 10:33] LABS: Basophils # 0.1 10^3/uL (0.0-0.1); Basophils % 0.5 %; Eosinophils # 0.2 10^3/uL (0.0-0.8); Eosinophils % 1.8 %; Hematocrit 40.1 % (42.0-52.0); Hemoglobin 13.1 g/dL (11.7-16.6); Lymphocytes # 1.3 10^3/uL (0.8-4.8); Lymphocytes % 12.9 %; Mean Corpuscular HGB Conc 32.7 g/dL (30.0-36.0); Mean Corpuscular Hemoglobin 27.1 pg (28.0-34.0); Mean Corpuscular Volume 82.9 fl (80-94); Mean Platelet Volume 10.3 fL (7.4-10.4); Monocytes # 0.8 10^3/uL (0.2-0.9); Monocytes % 8.4 %; Neutrophils # 7.53 10^3/uL (1.8-7.7); Neutrophils % 76.2 %; Nucleated Red Blood Cells % 0 %; Platelet Count 277 10^3/cmm (130-400); Red Blood Count 4.84 10^6/uL (4.1-5.3); Red Cell Distribution Width 13.8 % (12.1-15.1); White Blood Count 9.9 10^3/uL (4.0-10.0)
[2022-07-15 10:49] LABS: Alanine Aminotransferase 14 U/L (0-41); Albumin Level 3.6 g/dL (3.5-5.2); Alkaline Phosphatase 114 U/L (40-130); Anion Gap 12.7 (5-19); Aspartate Amino Transferase 19 U/L (0-40); Blood Urea Nitrogen 12 mg/dL (8-23); Calcium 8.9 mg/dL (8.5-10.5); Carbon Dioxide 29 mmol/L (22-29); Chloride 101 mmol/L (98-107); Glucose 99 mg/dL (65-115); Osmolality Calculated 288 mOsm/kg (285-295); Potassium 3.7 mmol/L (3.5-5.1); Sodium 139 mmol/L (136-145); Total Bilirubin 0.4 mg/dL (0.15-1.2); Total Protein 6.6 g/dL (6.6-8.7)
== END 2022-07-15 23:59 | disposition home or self-care (01) ==
PROVIDERS: PCP Family Medicine; Visit Provider Internal Medicine Hematology & Oncology
DX: C43.59 Malignant melanoma of other part of trunk; C77.8 Secondary and unspecified malignant neoplasm of lymph nodes of multiple regions; Z79.899 Other long term (current) drug therapy
CPT/HCPCS: 36591; 80053; 85025; 99214

== ENCOUNTER → 2022-07-30 11:03 | Outpatient (BNVA) | payer MEDICAID, SELFPAY | PROVIDERS: PCP Family Medicine; Visit Provider Nurse Practitioner Family | DX: C43.9 Malignant melanoma of skin, unspecified (principal) | CPT/HCPCS: 99213 ==

== ENCOUNTER 2022-08-13 10:30 | Oncology outpatient (recurring) (ONCR) | payer MEDICAID, SELFPAY ==
[2022-07-22 09:19] LABS: Basophils % 0.6 %; Eosinophils # 0.2 10^3/uL (0.0-0.8); Eosinophils % 2.3 %; Hematocrit 40.8 % (42.0-52.0); Lymphocytes # 1.1 10^3/uL (0.8-4.8); Lymphocytes % 16.1 %; Mean Corpuscular HGB Conc 31.9 g/dL (30.0-36.0); Mean Corpuscular Hemoglobin 26.8 pg (28.0-34.0); Mean Corpuscular Volume 84.1 fl (80-94); Mean Platelet Volume 10.4 fL (7.4-10.4); Monocytes # 0.7 10^3/uL (0.2-0.9); Monocytes % 10.8 %; Neutrophils # 4.78 10^3/uL (1.8-7.7); Neutrophils % 69.9 %; Nucleated Red Blood Cells % 0 %; Platelet Count 261 10^3/cmm (130-400); Red Blood Count 4.85 10^6/uL (4.1-5.3); Red Cell Distribution Width 13.9 % (12.1-15.1); White Blood Count 6.8 10^3/uL (4.0-10.0)
[2022-07-22 09:47] LABS: Alanine Aminotransferase 59 U/L (0-41); Albumin Level 3.6 g/dL (3.5-5.2); Alkaline Phosphatase 133 U/L (40-130); Anion Gap 12.7 (5-19); Aspartate Amino Transferase 56 U/L (0-40); Blood Urea Nitrogen 15 mg/dL (8-23); Calcium 8.9 mg/dL (8.5-10.5); Carbon Dioxide 28 mmol/L (22-29); Chloride 101 mmol/L (98-107); Glucose 114 mg/dL (65-115); Osmolality Calculated 288 mOsm/kg (285-295); Potassium 3.7 mmol/L (3.5-5.1); Sodium 138 mmol/L (136-145); Thyroid Stimulating Hormone 0.84 uIU/mL (0.27-4.20); Total Bilirubin 0.3 mg/dL (0.15-1.2); Total Protein 6.6 g/dL (6.6-8.7)
[2022-07-23 10:46] VITALS: BMI 29.7
[2022-07-23] MEDS: sodium chloride 0.9% 250 ML 75 ML IV (11:39)
[2022-07-23] MEDS: acetaminophen 325 mg Tablet 650 MG PO (11:40)
[2022-07-23] MEDS: famotidine 20 mg/2 mL INJ IVP (11:43)
[2022-07-23] MEDS: diphenhydrAMINE 50 mg/mL SDV 1mL IVP (11:47)
[2022-07-23] MEDS: dexamethasone 20 MG in sodium chloride 0.9% 50 ML 188 MG IV (11:54)
[2022-07-23 14:00] VITALS: BP 124/75; PULSE 58; RESP 18; TEMP 36.1; O2SAT 98
[2022-07-29 11:00] LABS: Basophils % 0.4 %; Eosinophils # 0.2 10^3/uL (0.0-0.8); Eosinophils % 1.5 %; Hematocrit 40.7 % (42.0-52.0); Hemoglobin 13.2 g/dL (11.7-16.6); Lymphocytes # 1.2 10^3/uL (0.8-4.8); Mean Corpuscular HGB Conc 32.4 g/dL (30.0-36.0); Mean Corpuscular Volume 83.2 fl (80-94); Mean Platelet Volume 10.2 fL (7.4-10.4); Monocytes # 1.3 10^3/uL (0.2-0.9); Monocytes % 11.3 %; Neutrophils # 8.32 10^3/uL (1.8-7.7); Neutrophils % 75.4 %; Nucleated Red Blood Cells % 0 %; Platelet Count 299 10^3/cmm (130-400); Red Blood Count 4.89 10^6/uL (4.1-5.3); Red Cell Distribution Width 14.1 % (12.1-15.1)
[2022-07-29 11:16] LABS: Alanine Aminotransferase 138 U/L (0-41); Albumin Level 3.5 g/dL (3.5-5.2); Alkaline Phosphatase 185 U/L (40-130); Anion Gap 14.9 (5-19); Aspartate Amino Transferase 44 U/L (0-40); Blood Urea Nitrogen 11 mg/dL (8-23); Calcium 9.2 mg/dL (8.5-10.5); Carbon Dioxide 26 mmol/L (22-29); Chloride 100 mmol/L (98-107); Globulin 3.1 g/dL (1.3-4.6); Glomerular Filtration Rate 114.3 mL/min (90-130); Glucose 104 mg/dL (65-115); Osmolality Calculated 284 mOsm/kg (285-295); Potassium 3.9 mmol/L (3.5-5.1); Sodium 137 mmol/L (136-145); Total Bilirubin 0.5 mg/dL (0.15-1.2); Total Protein 6.6 g/dL (6.6-8.7)
[2022-08-12 11:08] VITALS: BP 111/77; PULSE 71; RESP 16; TEMP 36.5; O2SAT 98
[2022-08-12 11:32] LABS: Basophils % 0.4 %; Eosinophils # 0.2 10^3/uL (0.0-0.8); Eosinophils % 1.7 %; Hematocrit 39.4 % (42.0-52.0); Hemoglobin 12.9 g/dL (11.7-16.6); Lymphocytes # 1.3 10^3/uL (0.8-4.8); Lymphocytes % 12.3 %; Mean Corpuscular HGB Conc 32.7 g/dL (30.0-36.0); Mean Corpuscular Hemoglobin 27.6 pg (28.0-34.0); Mean Corpuscular Volume 84.4 fl (80-94); Mean Platelet Volume 10.3 fL (7.4-10.4); Monocytes # 1.1 10^3/uL (0.2-0.9); Monocytes % 10.4 %; Neutrophils # 7.68 10^3/uL (1.8-7.7); Neutrophils % 74.8 %; Nucleated Red Blood Cells % 0 %; Platelet Count 299 10^3/cmm (130-400); Red Blood Count 4.67 10^6/uL (4.1-5.3); White Blood Count 10.3 10^3/uL (4.0-10.0)
[2022-08-12 12:08] LABS: Alanine Aminotransferase 14 U/L (0-41); Albumin Level 3.4 g/dL (3.5-5.2); Alkaline Phosphatase 114 U/L (40-130); Anion Gap 15.3 (5-19); Aspartate Amino Transferase 22 U/L (0-40); Blood Urea Nitrogen 8 mg/dL (8-23); Calcium 8.9 mg/dL (8.5-10.5); Carbon Dioxide 25 mmol/L (22-29); Chloride 100 mmol/L (98-107); Globulin 3.5 g/dL (1.3-4.6); Glucose 96 mg/dL (65-115); Osmolality Calculated 280 mOsm/kg (285-295); Potassium 4.3 mmol/L (3.5-5.1); Sodium 136 mmol/L (136-145); Total Bilirubin 0.4 mg/dL (0.15-1.2); Total Protein 6.9 g/dL (6.6-8.7)
[2022-08-13] MEDS: acetaminophen 325 mg Tablet 650 MG PO (11:36)
[2022-08-13] MEDS: sodium chloride 0.9% 250 ML 75 ML IV (11:36)
[2022-08-13] MEDS: famotidine 20 mg/2 mL INJ IVP (11:37)
[2022-08-13] MEDS: diphenhydrAMINE 50 mg/mL SDV 1mL IVP (11:37)
[2022-08-13] MEDS: dexamethasone 20 MG in sodium chloride 0.9% 50 ML 188 MG IV (11:41)
[2022-08-13 13:47] VITALS: BP 104/71; PULSE 67; RESP 16; TEMP 36.4; O2SAT 97
== END 2022-08-15 23:59 | disposition home or self-care (01) ==
PROVIDERS: PCP Family Medicine; Visit Provider Internal Medicine Hematology & Oncology
DX: C43.59 Malignant melanoma of other part of trunk (principal); Z51.12 Encounter for antineoplastic immunotherapy; C77.8 Secondary and unspecified malignant neoplasm of lymph nodes of multiple regions; C79.51 Secondary malignant neoplasm of bone; C79.89 Secondary malignant neoplasm of other specified sites; G89.3 Neoplasm related pain (acute) (chronic); Z79.899 Other long term (current) drug therapy
CPT/HCPCS: 36415; 36591; 80053; 84443; 85025; 96367; 96375; 96413; 96417; 99213; 99214; J1100; J1200; J3490; J7050; J9228; J9299

== ENCOUNTER 2022-09-03 10:30 | Oncology outpatient (recurring) (ONCR) | payer MEDICAID, SELFPAY ==
[2022-08-25 10:59] VITALS: BP 119/75; PULSE 74; RESP 16; TEMP 36.7; O2SAT 99
[2022-08-25 11:09] LABS: Basophils % 0.4 %; Eosinophils # 0.1 10^3/uL (0.0-0.8); Eosinophils % 0.9 %; Hematocrit 39.2 % (42.0-52.0); Hemoglobin 12.6 g/dL (11.7-16.6); Lymphocytes # 1.2 10^3/uL (0.8-4.8); Lymphocytes % 10.9 %; Mean Corpuscular HGB Conc 32.1 g/dL (30.0-36.0); Mean Corpuscular Hemoglobin 26.6 pg (28.0-34.0); Mean Corpuscular Volume 82.9 fl (80-94); Mean Platelet Volume 10.2 fL (7.4-10.4); Monocytes # 0.9 10^3/uL (0.2-0.9); Monocytes % 8.2 %; Neutrophils # 9.05 10^3/uL (1.8-7.7); Neutrophils % 79.3 %; Nucleated Red Blood Cells % 0 %; Platelet Count 277 10^3/cmm (130-400); Red Blood Count 4.73 10^6/uL (4.1-5.3); Red Cell Distribution Width 14.3 % (12.1-15.1); White Blood Count 11.4 10^3/uL (4.0-10.0)
[2022-08-25 11:35] LABS: Alanine Aminotransferase 11 U/L (0-41); Albumin Level 3.6 g/dL (3.5-5.2); Alkaline Phosphatase 103 U/L (40-130); Aspartate Amino Transferase 20 U/L (0-40); Blood Urea Nitrogen 13 mg/dL (8-23); Calcium 9.2 mg/dL (8.5-10.5); Carbon Dioxide 26 mmol/L (22-29); Chloride 102 mmol/L (98-107); Globulin 3.3 g/dL (1.3-4.6); Glomerular Filtration Rate 85.5 mL/min (90-130); Glucose 87 mg/dL (65-115); Osmolality Calculated 287 mOsm/kg (285-295); Sodium 139 mmol/L (136-145); Thyroid Stimulating Hormone 1.16 uIU/mL (0.27-4.20); Total Bilirubin 0.3 mg/dL (0.15-1.2); Total Protein 6.9 g/dL (6.6-8.7)
[2022-08-26 11:47] LABS: Add Urine Microscopic? NO; Charge for UA Resulting for Rev
[2022-08-26 11:55] LABS: Bilirubin Urine Neg (Negative); Blood Urine Neg (Negative); Glucose Urine UA Norm (Normal); Ketones Urine Negative (Negative); Leukocyte Esterase Urine Negative (Negative); Nitrate Urine Negative (Negative); Protein Urine Neg (Negative); Urine Appearance Clear (CLEAR); Urine Color Yellow (Yellow); Urobilinogen Urine Neg (Negative); pH Urine 5 (5-7)
[2022-09-01 11:41] VITALS: BP 107/75; PULSE 67; RESP 16; TEMP 36.8; O2SAT 98
[2022-09-01 11:55] LABS: Basophils % 0.3 %; Eosinophils # 0.1 10^3/uL (0.0-0.8); Eosinophils % 1.2 %; Hemoglobin 12.6 g/dL (11.7-16.6); Lymphocytes # 1.3 10^3/uL (0.8-4.8); Lymphocytes % 13.8 %; Mean Corpuscular HGB Conc 32.3 g/dL (30.0-36.0); Mean Corpuscular Hemoglobin 26.9 pg (28.0-34.0); Mean Corpuscular Volume 83.2 fl (80-94); Mean Platelet Volume 9.7 fL (7.4-10.4); Monocytes # 0.9 10^3/uL (0.2-0.9); Neutrophils % 74.5 %; Nucleated Red Blood Cells % 0 %; Platelet Count 287 10^3/cmm (130-400); Red Blood Count 4.69 10^6/uL (4.1-5.3); Red Cell Distribution Width 14.3 % (12.1-15.1); White Blood Count 9.3 10^3/uL (4.0-10.0)
[2022-09-01 12:24] LABS: Alanine Aminotransferase 12 U/L (0-41); Albumin Level 3.6 g/dL (3.5-5.2); Alkaline Phosphatase 106 U/L (40-130); Anion Gap 11.9 (5-19); Aspartate Amino Transferase 24 U/L (0-40); Blood Urea Nitrogen 11 mg/dL (8-23); Calcium 8.6 mg/dL (8.5-10.5); Carbon Dioxide 26 mmol/L (22-29); Chloride 101 mmol/L (98-107); Globulin 3.2 g/dL (1.3-4.6); Glomerular Filtration Rate 114.3 mL/min (90-130); Glucose 125 mg/dL (65-115); Osmolality Calculated 281 mOsm/kg (285-295); Potassium 3.9 mmol/L (3.5-5.1); Sodium 135 mmol/L (136-145); Thyroid Stimulating Hormone 0.65 uIU/mL (0.27-4.20); Total Bilirubin 0.3 mg/dL (0.15-1.2); Total Protein 6.8 g/dL (6.6-8.7)
[2022-09-03 10:32] VITALS: BP 107/78; PULSE 79; RESP 20; TEMP 36.8; O2SAT 96
[2022-09-03] MEDS: sodium chloride 0.9% 250 ML 75 ML IV (10:49)
[2022-09-03] MEDS: acetaminophen 325 mg Tablet 650 MG PO (10:49)
[2022-09-03] MEDS: famotidine 20 mg/2 mL INJ IVP (10:50)
[2022-09-03] MEDS: diphenhydrAMINE 50 mg/mL SDV 1mL IVP (10:53)
[2022-09-03] MEDS: dexamethasone 20 MG in sodium chloride 0.9% 50 ML 188 MG IV (11:10)
[2022-09-03 13:15] VITALS: BP 118/79; PULSE 61; RESP 16; TEMP 36.4; O2SAT 98
== END 2022-09-03 23:59 | disposition home or self-care (01) ==
PROVIDERS: PCP Family Medicine; Visit Provider Internal Medicine Hematology & Oncology
DX: C43.59 Malignant melanoma of other part of trunk (principal); C77.8 Secondary and unspecified malignant neoplasm of lymph nodes of multiple regions; C79.51 Secondary malignant neoplasm of bone; C79.89 Secondary malignant neoplasm of other specified sites; Z79.899 Other long term (current) drug therapy; Z51.12 Encounter for antineoplastic immunotherapy
CPT/HCPCS: 80053; 81003; 84443; 85025; 96375; 96413; 96417; 99214; J1100; J1200; J3490; J7050; J9228; J9299

== ENCOUNTER 2022-09-27 05:46 | Outpatient (CLI) | payer MEDICAID, SELFPAY ==
--- NOTE | 2022-09-27 10:30 | PETR_ITS ---
PROCEDURE INFORMATION: Exam: PET/CT Skull Base to Mid-thigh Exam date and time: 09/27/2022 11:18 AM Age: 62 years old Clinical indication: Condition or disease; Primary cancer: Malignant melanoma of skin; Follow-up oncological assessment; Additional info: History of melanoma LABS AND CLINICAL REPORTS: Glucose: 89 mg/dl Treatment strategy for malignancy (PET staging): Restaging (PS) TECHNIQUE: Imaging protocol: Following at least four-hour fasting and following the injection of radiopharmaceutical, low dose CT images were obtained. Then, PET images were obtained. Attenuation corrected images were constructed using the CT scan. Fused images of PET and CT were reviewed. The standardized uptake values (SUV) reported below are maximum values within a region of interest, expressed in gm/ml. Exam includes orbital meatal line to mid-thigh. Radiopharmaceutical: 12.09 mCi F-18 FDG (Fluorodeoxyglucose), IV. Time of imaging post radiopharmaceutical administration: 1 hour Injection site: Right antecubital vein [id number] 05/31/2022 11:08 AM FINDINGS: Tubes, catheters and devices: Port catheter placed via the right subclavian vein terminates in the superior vena cava. Brain: No abnormal uptake. Pharynx: No abnormal uptake. Larynx: No abnormal uptake. Lungs, pleura and trachea: No abnormal uptake. Stable 1.5 cm calcified granuloma in the right middle lobe. No suspicious lung nodules or masses. No pleural effusion. Heart: Normal physiologic uptake. No cardiomegaly. There is no pericardial effusion. Mediastinal space: No abnormal uptake. Liver: Liver metastasis in the segment 7 decreased from 4.3 cm to 3.6 cm with decrease in the peripheral rim of uptake from 4.8 SUV to 3.7 SUV compatible with morphologic and metabolic response. There is stable 1.2 cm simple cyst in the left lobe on image 111. Gallbladder and bile ducts: No abnormal uptake. Stable calcified gallstones including the largest stone measuring up to 3.3 cm. Pancreas: No abnormal uptake. Spleen: Multiple large metastases increased in size causing progressive splenomegaly (increased from 13.8 cm to 16.4 cm) with the highest uptake of 14.9 SUV, previously 17.4 SUV. Some lesions have developed new central photopenia as seen for example in the largest anterior superior lesion on image 98 that increased from 5.2 cm to 6 cm. Adrenal glands: No abnormal uptake. No nodules. Kidneys and ureters: Normal physiologic uptake. No hydronephrosis. Stomach and bowel: No abnormal uptake. Vasculature: No abnormal uptake. No aortic aneurysm. Lymph nodes: There are mixed changes with overall stability of the bulky right axillary lymphadenopathy with the highest uptake of 19.2 SUV, previously 21.9 SUV. There are mixed changes with overall slight increase in size of the bulky left axillary lymphadenopathy with highest uptake of 18.8 SUV, previously 17.8 SUV. Small right supraclavicular metastasis on image 59 shows morphologic and metabolic response (decreased in size from 1.4 cm to 0.6 cm and decreased in uptake from 8.6 SUV to 1.6 SUV). Left supraclavicular lymph node on image 63 mildly increased in size but decreased in uptake ( 3.7 cm/11.2 SUV, previously 2.9 cm/17.5 SUV). There is persistent diffusely increased uptake in borderline prominent in size mediastinal and bilateral hilar lymph nodes currently measuring up to 7.2 SUV versus 5.1 SUV on the prior exam possibly representing either sarcoid like reaction to immunotherapy or small volume metastatic disease. Bones/joints: Stable in size lytic metastasis in the right scapula on image 63 measures 13.6 SUV, previously 16 SUV. Intramedullary metastasis in the left proximal femur increased in size and in uptake from 15.3 SUV to 19 SUV. Soft tissues: No abnormal uptake. About 7.5 cm lentiform shaped fluid collection in the right upper back persists since 05/31/2022 suggestive of postsurgical seroma. 1.9 cm subcutaneous cystic focus in the right upper back on image 64 stable since multiple prior exams likely represents benign finding of epidermal inclusion cyst/sebaceous cyst. [facility] [id number] IMPRESSION: In comparison with 05/31/2022 there are mixed changes with overall mild increase in volume of FDG avid metastatic disease particularly in the spleen.
== END 2022-09-27 05:47 | disposition home or self-care (01) ==
LOC: RAD 09-29 05:47
PROVIDERS: PCP Family Medicine; Visit Provider Nurse Practitioner Family
DX: C43.9 Malignant melanoma of skin, unspecified (principal)
CPT/HCPCS: 78815; A9552

== ENCOUNTER → 2022-09-30 15:32 | Outpatient (BNVA) | payer MEDICAID, SELFPAY | PROVIDERS: PCP Family Medicine; Visit Provider Dermatology | DX: C44.219 Basal cell carcinoma of skin of left ear and external auricular canal (principal); D04.39 Carcinoma in situ of skin of other parts of face; C44.41 Basal cell carcinoma of skin of scalp and neck; C79.89 Secondary malignant neoplasm of other specified sites; Z85.828 Personal history of other malignant neoplasm of skin; L72.0 Epidermal cyst; D23.71 Other benign neoplasm of skin of right lower limb, including hip; D23.72 Other benign neoplasm of skin of left lower limb, including hip; L82.1 Other seborrheic keratosis; L57.0 Actinic keratosis; R59.0 Localized enlarged lymph nodes; L57.8 Other skin changes due to chronic exposure to nonionizing radiation | CPT/HCPCS: 11102; 11103; 17000; 17003; 99214 ==

== ENCOUNTER 2022-10-06 12:30 | Oncology outpatient (recurring) (ONCR) | payer MEDICAID, SELFPAY ==
[2022-09-23 11:20] VITALS: BP 107/72; PULSE 70; RESP 16; TEMP 35.9; O2SAT 96
[2022-09-23 11:20] LABS: Basophils % 0.5 %; Eosinophils # 0.1 10^3/uL (0.0-0.8); Eosinophils % 1.6 %; Hematocrit 38.8 % (42.0-52.0); Hemoglobin 12.7 g/dL (11.7-16.6); Lymphocytes # 1.3 10^3/uL (0.8-4.8); Lymphocytes % 15.7 %; Mean Corpuscular HGB Conc 32.7 g/dL (30.0-36.0); Mean Corpuscular Hemoglobin 27.2 pg (28.0-34.0); Mean Corpuscular Volume 83.1 fl (80-94); Mean Platelet Volume 10.5 fL (7.4-10.4); Monocytes % 12.1 %; Neutrophils # 5.96 10^3/uL (1.8-7.7); Neutrophils % 69.9 %; Nucleated Red Blood Cells % 0 %; Platelet Count 304 10^3/cmm (130-400); Red Blood Count 4.67 10^6/uL (4.1-5.3); Red Cell Distribution Width 14.7 % (12.1-15.1); White Blood Count 8.5 10^3/uL (4.0-10.0)
[2022-09-23 11:44] LABS: Alanine Aminotransferase 11 U/L (0-41); Albumin Level 3.7 g/dL (3.5-5.2); Alkaline Phosphatase 101 U/L (40-130); Anion Gap 13.9 (5-19); Aspartate Amino Transferase 22 U/L (0-40); Blood Urea Nitrogen 15 mg/dL (8-23); Calcium 9.3 mg/dL (8.5-10.5); Carbon Dioxide 27 mmol/L (22-29); Chloride 100 mmol/L (98-107); Globulin 3.2 g/dL (1.3-4.6); Glomerular Filtration Rate 85.5 mL/min (90-130); Glucose 86 mg/dL (65-115); Osmolality Calculated 284 mOsm/kg (285-295); Potassium 3.9 mmol/L (3.5-5.1); Sodium 137 mmol/L (136-145); Thyroid Stimulating Hormone 1.31 uIU/mL (0.27-4.20); Total Bilirubin 0.3 mg/dL (0.15-1.2); Total Protein 6.9 g/dL (6.6-8.7)
[2022-10-06 12:37] VITALS: BP 103/71; PULSE 80; RESP 16; TEMP 36.1; O2SAT 98
[2022-10-06 12:58] LABS: Basophils % 0.3 %; Eosinophils # 0.1 10^3/uL (0.0-0.8); Eosinophils % 1.2 %; Hematocrit 38.3 % (42.0-52.0); Hemoglobin 12.6 g/dL (11.7-16.6); Lymphocytes # 1.4 10^3/uL (0.8-4.8); Lymphocytes % 11.7 %; Mean Corpuscular HGB Conc 32.9 g/dL (30.0-36.0); Mean Corpuscular Hemoglobin 27.2 pg (28.0-34.0); Mean Corpuscular Volume 82.5 fl (80-94); Mean Platelet Volume 9.9 fL (7.4-10.4); Monocytes # 1.4 10^3/uL (0.2-0.9); Monocytes % 12.1 %; Neutrophils % 74.4 %; Nucleated Red Blood Cells % 0 %; Platelet Count 385 10^3/cmm (130-400); Red Blood Count 4.64 10^6/uL (4.1-5.3); White Blood Count 11.6 10^3/uL (4.0-10.0)
[2022-10-06 13:36] LABS: Alanine Aminotransferase 11 U/L (0-41); Albumin Level 3.6 g/dL (3.5-5.2); Alkaline Phosphatase 95 U/L (40-130); Anion Gap 16.9 (5-19); Aspartate Amino Transferase 30 U/L (0-40); Blood Urea Nitrogen 13 mg/dL (8-23); Calcium 8.9 mg/dL (8.5-10.5); Carbon Dioxide 26 mmol/L (22-29); Chloride 99 mmol/L (98-107); Globulin 3.3 g/dL (1.3-4.6); Glucose 108 mg/dL (65-115); Osmolality Calculated 287 mOsm/kg (285-295); Potassium 3.9 mmol/L (3.5-5.1); Sodium 138 mmol/L (136-145); Thyroid Stimulating Hormone 0.89 uIU/mL (0.27-4.20); Total Bilirubin 0.3 mg/dL (0.15-1.2); Total Protein 6.9 g/dL (6.6-8.7)
[2022-10-06] MEDS: nivolumab 240 MG in sodium chloride 0.9% 250 ML 548 MG IV (15:44)
[2022-10-06 16:22] VITALS: BP 123/81; PULSE 84; RESP 16; TEMP 36.7; O2SAT 95
== END 2022-10-15 23:59 | disposition home or self-care (01) ==
PROVIDERS: Nurse Practitioner; Nurse Practitioner Family; PCP Family Medicine; Visit Provider Internal Medicine Hematology & Oncology
DX: C43.59 Malignant melanoma of other part of trunk (principal); Z51.12 Encounter for antineoplastic immunotherapy; C77.3 Secondary and unspecified malignant neoplasm of axilla and upper limb lymph nodes; C78.7 Secondary malignant neoplasm of liver and intrahepatic bile duct; C79.89 Secondary malignant neoplasm of other specified sites; Z79.899 Other long term (current) drug therapy
CPT/HCPCS: 80053; 84443; 85025; 96375; 96413; 99214; J1642; J7050; J9299

== ENCOUNTER → 2022-10-31 09:39 | Outpatient (BNVA) | payer MEDICAID, SELFPAY | PROVIDERS: PCP Family Medicine; Referring Provider Internal Medicine Hematology & Oncology; Visit Provider Orthopaedic Surgery | DX: M25.552 Pain in left hip (principal); C43.9 Malignant melanoma of skin, unspecified | CPT/HCPCS: 73552; 99202 ==

== ENCOUNTER 2022-11-05 11:30 | Oncology outpatient (recurring) (ONCR) | payer MEDICAID, SELFPAY ==
[2022-10-21 08:43] VITALS: BP 107/73; PULSE 90; RESP 18; TEMP 36.2; O2SAT 99
[2022-10-21 09:04] LABS: Basophils % 0.3 %; Eosinophils # 0.2 10^3/uL (0.0-0.8); Eosinophils % 1.6 %; Hematocrit 37.5 % (42.0-52.0); Hemoglobin 12.2 g/dL (11.7-16.6); Lymphocytes # 1.2 10^3/uL (0.8-4.8); Mean Corpuscular HGB Conc 32.5 g/dL (30.0-36.0); Mean Corpuscular Hemoglobin 26.7 pg (28.0-34.0); Mean Corpuscular Volume 82.1 fl (80-94); Mean Platelet Volume 9.7 fL (7.4-10.4); Monocytes # 1.4 10^3/uL (0.2-0.9); Monocytes % 13.3 %; Neutrophils % 73.5 %; Nucleated Red Blood Cells % 0 %; Platelet Count 381 10^3/cmm (130-400); Red Blood Count 4.57 10^6/uL (4.1-5.3); Red Cell Distribution Width 13.6 % (12.1-15.1); White Blood Count 10.5 10^3/uL (4.0-10.0)
[2022-10-21 09:44] LABS: Alanine Aminotransferase 12 U/L (0-41); Albumin Level 3.5 g/dL (3.5-5.2); Alkaline Phosphatase 94 U/L (40-130); Anion Gap 15.1 (5-19); Aspartate Amino Transferase 21 U/L (0-40); Blood Urea Nitrogen 10 mg/dL (8-23); Calcium 8.6 mg/dL (8.5-10.5); Carbon Dioxide 26 mmol/L (22-29); Chloride 98 mmol/L (98-107); Globulin 3.7 g/dL (1.3-4.6); Glomerular Filtration Rate 114.3 mL/min (90-130); Glucose 92 mg/dL (65-115); Osmolality Calculated 279 mOsm/kg (285-295); Potassium 4.1 mmol/L (3.5-5.1); Sodium 135 mmol/L (136-145); Thyroid Stimulating Hormone 1.36 uIU/mL (0.27-4.20); Total Bilirubin 0.3 mg/dL (0.15-1.2); Total Protein 7.2 g/dL (6.6-8.7)
[2022-10-22 11:40] VITALS: BMI 28.8
[2022-10-22] MEDS: nivolumab 240 MG in sodium chloride 0.9% 250 ML 548 MG IV (12:11)
[2022-10-22 12:58] VITALS: BP 110/73; PULSE 74; RESP 18; TEMP 36.1; O2SAT 99
[2022-11-04 08:51] VITALS: BP 126/84; PULSE 95; RESP 18; TEMP 36.8; O2SAT 96
[2022-11-04 09:02] LABS: Basophils % 0.3 %; Eosinophils # 0.1 10^3/uL (0.0-0.8); Eosinophils % 1.1 %; Hematocrit 38.6 % (42.0-52.0); Hemoglobin 12.5 g/dL (11.7-16.6); Lymphocytes # 1.4 10^3/uL (0.8-4.8); Lymphocytes % 11.7 %; Mean Corpuscular HGB Conc 32.4 g/dL (30.0-36.0); Mean Corpuscular Hemoglobin 26.5 pg (28.0-34.0); Mean Platelet Volume 9.8 fL (7.4-10.4); Monocytes # 1.3 10^3/uL (0.2-0.9); Monocytes % 10.4 %; Neutrophils # 9.37 10^3/uL (1.8-7.7); Neutrophils % 76.3 %; Nucleated Red Blood Cells % 0 %; Platelet Count 355 10^3/cmm (130-400); Red Blood Count 4.71 10^6/uL (4.1-5.3); Red Cell Distribution Width 14.1 % (12.1-15.1); White Blood Count 12.3 10^3/uL (4.0-10.0)
[2022-11-04 09:28] LABS: Alanine Aminotransferase 13 U/L (0-41); Albumin Level 3.8 g/dL (3.5-5.2); Alkaline Phosphatase 99 U/L (40-130); Anion Gap 13.9 (5-19); Aspartate Amino Transferase 27 U/L (0-40); Blood Urea Nitrogen 11 mg/dL (8-23); Calcium 8.9 mg/dL (8.5-10.5); Carbon Dioxide 26 mmol/L (22-29); Chloride 101 mmol/L (98-107); Creatinine Clr Calc Pharmacy 119.6749; Globulin 3.5 g/dL (1.3-4.6); Glomerular Filtration Rate 114.3 mL/min (90-130); Glucose 91 mg/dL (65-115); Osmolality Calculated 283 mOsm/kg (285-295); Potassium 3.9 mmol/L (3.5-5.1); Sodium 137 mmol/L (136-145); Thyroid Stimulating Hormone 1.13 uIU/mL (0.27-4.20); Total Bilirubin 0.4 mg/dL (0.15-1.2); Total Protein 7.3 g/dL (6.6-8.7)
[2022-11-05] MEDS: nivolumab 240 MG in sodium chloride 0.9% 250 ML 548 MG IV (12:01)
[2022-11-05 13:05] VITALS: BP 149/65; PULSE 66; RESP 18; TEMP 36.6; O2SAT 98
== END 2022-11-05 23:59 | disposition home or self-care (01) ==
PROVIDERS: Nurse Practitioner Family; PCP Family Medicine; Visit Provider Internal Medicine Hematology & Oncology
DX: C43.59 Malignant melanoma of other part of trunk (principal); Z51.12 Encounter for antineoplastic immunotherapy; C77.8 Secondary and unspecified malignant neoplasm of lymph nodes of multiple regions; C79.51 Secondary malignant neoplasm of bone; Z79.899 Other long term (current) drug therapy
CPT/HCPCS: 36591; 80053; 84443; 85025; 96413; 99214; J1642; J7050; J9299

== ENCOUNTER 2022-12-03 12:00 | Oncology outpatient (recurring) (ONCR) | payer MEDICAID, SELFPAY ==
[2022-11-17 15:02] VITALS: BP 127/85; PULSE 77; RESP 18; TEMP 36.8; O2SAT 96
[2022-11-17 15:19] LABS: Basophils % 0.3 %; Eosinophils # 0.2 10^3/uL (0.0-0.8); Eosinophils % 1.6 %; Hematocrit 33.1 % (42.0-52.0); Hemoglobin 10.9 g/dL (11.7-16.6); Lymphocytes # 1.6 10^3/uL (0.8-4.8); Lymphocytes % 14.6 %; Mean Corpuscular HGB Conc 32.9 g/dL (30.0-36.0); Mean Corpuscular Hemoglobin 26.3 pg (28.0-34.0); Mean Corpuscular Volume 79.8 fl (80-94); Mean Platelet Volume 10.1 fL (7.4-10.4); Monocytes # 1.3 10^3/uL (0.2-0.9); Monocytes % 12.3 %; Neutrophils # 7.51 10^3/uL (1.8-7.7); Neutrophils % 70.9 %; Nucleated Red Blood Cells % 0 %; Platelet Count 354 10^3/cmm (130-400); Red Blood Count 4.15 10^6/uL (4.1-5.3); Red Cell Distribution Width 14.2 % (12.1-15.1); White Blood Count 10.6 10^3/uL (4.0-10.0)
[2022-11-17 15:45] LABS: Alanine Aminotransferase 9 U/L (0-41); Albumin Level 3.4 g/dL (3.5-5.2); Alkaline Phosphatase 86 U/L (40-130); Anion Gap 12.1 (5-19); Aspartate Amino Transferase 19 U/L (0-40); Blood Urea Nitrogen 15 mg/dL (8-23); Calcium 8.5 mg/dL (8.5-10.5); Carbon Dioxide 29 mmol/L (22-29); Chloride 97 mmol/L (98-107); Glomerular Filtration Rate 75.7 mL/min (90-130); Glucose 77 mg/dL (65-115); Osmolality Calculated 280 mOsm/kg (285-295); Potassium 3.1 mmol/L (3.5-5.1); Sodium 135 mmol/L (136-145); Thyroid Stimulating Hormone 0.77 uIU/mL (0.27-4.20); Total Bilirubin 0.3 mg/dL (0.15-1.2); Total Protein 6.4 g/dL (6.6-8.7)
[2022-11-19 12:30] LABS: Ferritin 814 ng/mL (30-400); Iron 31 ug/dL (59-158); Percent Saturation 19.1 % (20-50); Total Iron Binding Capacity 162 mcg/dl; Unsaturated Iron Binding 131 ug/dL (112-347)
[2022-11-19] MEDS: nivolumab 240 MG in sodium chloride 0.9% 250 ML 548 MG IV (12:39)
[2022-11-19 12:46] LABS: Vitamin B12 804 pg/mL (232-1245)
[2022-11-19 13:29] VITALS: BP 103/69; PULSE 68; RESP 16; TEMP 36.1; O2SAT 97
[2022-12-02 13:56] VITALS: BP 108/74; PULSE 77; RESP 18; TEMP 36; O2SAT 98
[2022-12-02 14:12] LABS: Basophils % 0.3 %; Eosinophils # 0.1 10^3/uL (0.0-0.8); Eosinophils % 0.4 %; Hematocrit 34.1 % (42.0-52.0); Lymphocytes # 1.4 10^3/uL (0.8-4.8); Lymphocytes % 12.2 %; Mean Corpuscular HGB Conc 32.3 g/dL (30.0-36.0); Mean Corpuscular Hemoglobin 25.6 pg (28.0-34.0); Mean Corpuscular Volume 79.5 fl (80-94); Mean Platelet Volume 9.4 fL (7.4-10.4); Monocytes # 1.2 10^3/uL (0.2-0.9); Monocytes % 10.6 %; Neutrophils # 8.72 10^3/uL (1.8-7.7); Neutrophils % 76.2 %; Nucleated Red Blood Cells % 0 %; Platelet Count 412 10^3/cmm (130-400); Red Blood Count 4.29 10^6/uL (4.1-5.3); Red Cell Distribution Width 14.2 % (12.1-15.1); White Blood Count 11.5 10^3/uL (4.0-10.0)
[2022-12-02 14:28] LABS: Alanine Aminotransferase 13 U/L (0-41); Albumin Level 3.3 g/dL (3.5-5.2); Alkaline Phosphatase 85 U/L (40-130); Anion Gap 15.4 (5-19); Aspartate Amino Transferase 25 U/L (0-40); Blood Urea Nitrogen 18 mg/dL (8-23); Calcium 8.9 mg/dL (8.5-10.5); Carbon Dioxide 27 mmol/L (22-29); Chloride 98 mmol/L (98-107); Globulin 3.5 g/dL (1.3-4.6); Glomerular Filtration Rate 61.3 mL/min (90-130); Glucose 84 mg/dL (65-115); Osmolality Calculated 285 mOsm/kg (285-295); Potassium 3.4 mmol/L (3.5-5.1); Sodium 137 mmol/L (136-145); Total Bilirubin 0.3 mg/dL (0.15-1.2); Total Protein 6.8 g/dL (6.6-8.7)
[2022-12-02 14:50] LABS: Thyroid Stimulating Hormone 0.75 uIU/mL (0.27-4.20)
[2022-12-03] MEDS: nivolumab 240 MG in sodium chloride 0.9% 250 ML 548 MG IV (12:19)
[2022-12-03 13:04] VITALS: BP 100/64; PULSE 71; RESP 16; TEMP 36.4; O2SAT 99
== END 2022-12-03 23:59 | disposition home or self-care (01) ==
PROVIDERS: PCP Family Medicine; Visit Provider Internal Medicine Hematology & Oncology
DX: C77.8 Secondary and unspecified malignant neoplasm of lymph nodes of multiple regions (principal); Z51.12 Encounter for antineoplastic immunotherapy; Z85.820 Personal history of malignant melanoma of skin; C79.51 Secondary malignant neoplasm of bone; C78.7 Secondary malignant neoplasm of liver and intrahepatic bile duct; R10.12 Left upper quadrant pain
CPT/HCPCS: 36591; 80053; 82607; 82728; 83540; 83550; 84443; 85025; 96413; 99214; J1642; J7050; J9299

== ENCOUNTER 2022-12-12 13:05 | Outpatient (CLI) | payer MEDICAID, SELFPAY ==
--- NOTE | 2022-12-12 14:30 | CT_ITS ---
WS: [id number] CT CHEST AND ABDOMEN WITH CONTRAST HISTORY: History of melanoma. TECHNIQUE: Axial imaging is performed through the chest and abdomen with IV and oral contrast.. Sagit ranjit and coronal reformats. All CT scans at [facility] use at least one of these dose optimiza tion techniques: automated exposure control; mA and/or kV adjustment per patient size (includes targe yvette exams where dose is matched to clinical indication); or iterative reconstruction. CONTRAST: Omnipaque 350; 100 mL IV. DLP: 766.00 mGy.cm COMPARISON: Prior PET CT 09/27/[address]: Dense benign calcification in the RIGHT middle lobe. No pulmonary mass or nodule. No pericardial or p leural effusions. Normal size aorta. Normal size pulmonary artery. Normal heart. RIGHT subclavian Mediport is identified. There are large confluent bilateral axillary lymph nodes whi ch are abnormal. Mixed attenuation with peripheral enhancement. Largest abnormal lymph node cluster R IGHT axilla 11.0 x 6.9 cm. LEFT lymphadenopathy cluster 6.4 x 9.2 cm with prior biopsy clips. Inferio r RIGHT paratracheal lymph node 14 mm. Bilateral hilar lymph nodes at [address]: Liver is normal size. Hepatic mass of decreased attenuation measures 4.1 x 3.6 cm. No bile duct dilat ation. This additional smaller mass measuring 1.2 x 1.3 cm hepatic lobe. This could be metastatic les ion or hemangioma. Abnormal gallbladder with stones. No pancreatic abnormality. Large measuring 13.6 cm in length. There are numerous low-attenuation masses scattered throughout the spleen. Very little normal splenic parenchyma is remaining. No adrenal mass. Negative kidneys. Mild atherosclerosis aorta . No ascites or adenopathy. The visualized GI tract is negative. RIGHT scapular metastatic bone lesion unchanged. CT/CT chest abdomen w con* IMPRESSION: 1. Large metastatic bilateral axillary lymph node groups. Smaller, probable ab normal mediastinal and hilar lymph nodes also. Metastatic lymph nodes have incr eased in size and number since 09/27/2022. 2. No metastatic lesions in the lungs. 3. Abnormal spleen. Spleen is enlarged and incompletely replaced with masses, likely metastatic disease. PET/CT positive splenic lesions. 4. Liver lesions. The largest in the RIGHT lobe is most likely a metastatic si te. The LEFT lobe liver lesion may be a small hemangioma versus metastases. RIG HT hepatic lesion with PET/CT positive on prior studies with mild increase in s ize as compared to 09/27/2022. 5. Stable RIGHT scapular metastatic lesion.
[2022-12-12] MEDS: iohexol 350 mg/mL 500 mL Btl (per mL) IV (14:36)
[2022-12-12] MEDS: iohexol 350 mg/mL 500 mL Btl (per mL) PO (14:37)
== END 2022-12-12 13:06 | disposition home or self-care (01) ==
LOC: RAD 13:06
PROVIDERS: PCP Family Medicine; Visit Provider Internal Medicine Hematology & Oncology
DX: C43.9 Malignant melanoma of skin, unspecified (principal); C77.3 Secondary and unspecified malignant neoplasm of axilla and upper limb lymph nodes; C79.51 Secondary malignant neoplasm of bone; R59.0 Localized enlarged lymph nodes; D73.89 Other diseases of spleen; K76.9 Liver disease, unspecified
CPT/HCPCS: 71260; 74160; Q9967

== ENCOUNTER 2022-12-19 09:57 | Oncology outpatient (recurring) (ONCR) | payer MEDICAID, SELFPAY ==
[2022-12-16 14:07] VITALS: BMI 27.9
[2022-12-16 14:09] VITALS: BP 110/74; PULSE 71; RESP 18; TEMP 36.9; O2SAT 99
[2022-12-16 14:33] LABS: Basophils % 0.3 %; Eosinophils # 0.2 10^3/uL (0.0-0.8); Hematocrit 33.7 % (42.0-52.0); Hemoglobin 10.6 g/dL (11.7-16.6); Lymphocytes # 1.6 10^3/uL (0.8-4.8); Lymphocytes % 14.7 %; Mean Corpuscular HGB Conc 31.5 g/dL (30.0-36.0); Mean Corpuscular Hemoglobin 24.9 pg (28.0-34.0); Mean Corpuscular Volume 79.3 fl (80-94); Mean Platelet Volume 10.2 fL (7.4-10.4); Monocytes # 1.3 10^3/uL (0.2-0.9); Monocytes % 11.5 %; Neutrophils % 71.1 %; Nucleated Red Blood Cells % 0 %; Platelet Count 456 10^3/cmm (130-400); Red Blood Count 4.25 10^6/uL (4.1-5.3); Red Cell Distribution Width 14.6 % (12.1-15.1); White Blood Count 11.1 10^3/uL (4.0-10.0)
[2022-12-16 14:51] LABS: Alanine Aminotransferase 10 U/L (0-41); Albumin Level 3.4 g/dL (3.5-5.2); Alkaline Phosphatase 83 U/L (40-130); Anion Gap 14.9 (5-19); Aspartate Amino Transferase 26 U/L (0-40); Blood Urea Nitrogen 14 mg/dL (8-23); Calcium 8.6 mg/dL (8.5-10.5); Carbon Dioxide 27 mmol/L (22-29); Chloride 100 mmol/L (98-107); Globulin 3.3 g/dL (1.3-4.6); Glomerular Filtration Rate 85.5 mL/min (90-130); Glucose 83 mg/dL (65-115); Osmolality Calculated 286 mOsm/kg (285-295); Potassium 3.9 mmol/L (3.5-5.1); Sodium 138 mmol/L (136-145); Total Bilirubin 0.2 mg/dL (0.15-1.2); Total Protein 6.7 g/dL (6.6-8.7)
[2022-12-17] MEDS: nivolumab 240 MG in sodium chloride 0.9% 250 ML 548 MG IV (13:00)
[2022-12-17 13:44] VITALS: BP 113/69; PULSE 70; RESP 16; TEMP 36.4; O2SAT 98
--- NOTE | 2023-08-18 14:11 | ONCRAD TMN_ITS ---
Radiation Oncology Weekly Treatment Management Patient: Carloz Adan MR#: [id number] : 1960 Attending Physician: Dr. Marcela Wayne Date of Service: 08/18/2023 Fractions: 2 hours of 15 Referring Physician(s) : Melissa Mercado Diagnosis: C77.3 - Secondary and unspecified malignant neoplasm of axilla and upper limb lymph nodes, Diagnosed 08/12/2023 (Active) C79.51 - Secondary malignant neoplasm of bone, Diagnosed 05/2022 (Active) C43.59 - Malignant melanoma of other part of trunk, Diagnosed 09/09/2021 (Active) Radiotherapy to date: Course: Bilateral Axilla, Treatment Site: Axilla Lt45Gy, Ref. ID: [id number], Energy: 15X/6X, Dose/Fx (cGy): 300, #Fx: 2 / 15, Dose Correction (cGy): 0, Total Dose Delivered (cGy): 600, Start Date: 08/17/2023, Elapsed Days: 1 Bilateral Axilla, Treatment Site: Axilla Rt45Gy, Ref. ID: [id number], Energy: 15X/6X, Dose/Fx (cGy): 300, #Fx: 2 / 15, Dose Correction (cGy): 0, Total Dose Delivered (cGy): 600, Start Date: 08/17/2023, Elapsed Days: 1 Reason for visit: The patient is being seen today as part of their regularly scheduled weekly on treatment visits to assess for acute toxicities from radiotherapy. Review of Systems: Patient has actually been struggling with nausea and vomiting for the last 3 days. Vital Signs: Performed on 08/18/2023 1:42 PM BMI - 19.907 kg/m2, Height - 69 in, Weight - 134.8 lbs, Temperature - 97 f, Pulse - 113 /min (high), Respiration - 18 /min, O2 Sat - 98 %, Pain - 9, Fatigue - 9 and BP - 96/ 69 mm(hg). Physical Exam: He has no change on exam Imaging: Radiation therapy imaging related to accurate target localization (i.e. KV, MV and CBCT) was reviewed. Appropriate changes, if any, were made to ensure treatment accuracy. Plan: I have encouraged him to take his nausea medicine. He will also continue to take his pain medicine. Hopefully by the weekend he will have noticed some improvement in his pain. Will otherwise continue with his treatments as planned. Signed by: Dr. Marcela Wayne 08/18/2023 2:09:44 PM
== END 2022-12-19 23:59 | disposition home or self-care (01) ==
PROVIDERS: Nurse Practitioner Family; PCP Family Medicine; Visit Provider Radiology Radiation Oncology
DX: C43.59 Malignant melanoma of other part of trunk (principal); Z51.0 Encounter for antineoplastic radiation therapy
CPT/HCPCS: 36591; 77290; 77295; 77300; 77321; 77334; 77336; 77387; 77412; 77417; 80053; 85025; 96413; J1642; J7050; J9299

== ENCOUNTER 2023-01-13 15:29 | Emergency (ER) | payer MEDICAID, SELFPAY ==
[2023-01-13 15:41] VITALS: BP 121/77; PULSE 87; RESP 16; TEMP 36.8; O2SAT 100; BMI 27.4
--- NOTE | 2023-01-13 15:47 | ED_ITS ---
HPI - Skin/Abscess/Foreign Bdy General: Chief complaint: Skin/Abscess/Foreign Body Stated complaint: possible shingles Time Seen by Provider: 01/13/23 15:44 Source: patient Mode of arrival: ambulatory Limitations: no limitations History of Present Illness: Patient is a very nice 62-year-old male with a history of metastatic melanoma being followed by our oncology team here after they referred him to the emergency department for further evaluation of a chest and left upper extremity rash. Patient states he began noticing the rash approximately 3 to 4 days ago. He states the rash consists of very small vesicles that he states burn states the pain is tolerable. No new chemical, household, environmental exposures. No new medications. Denies systemic symptoms. MD complaint: rash Onset (ago): day(s) Tetanus up to date: yes Location: chest and LUE Severity: moderate Quality: burning Relieving factors: none Exacerbating factors: none Context: none Associated symptoms: Reports no associated symptoms; Deny chills or fever(s) Treatments prior to arrival: none Review of Systems Const: Denies: fever(s), chills, body aches, fatigue or malaise Eyes: Denies: change in vision, blurry vision, photophobia, floaters or seeing flashes Card: Denies: chest pain Resp: Denies: dyspnea GI: Denies: abdominal pain Musc: Denies: neck pain, back pain, extremity pain or joint pain Skin/Breast: Reports: rash, skin pain and new lesions Neuro: Denies: headache(s), numbness in extremities, weakness in extremities or sensory changes PFSH ED PFSH: Medical History Elevated PSA Hypertension Malignant melanoma Nodular basal cell carcinoma (BCC) Surgical History Hx of lymph node excision Family History Father Heart disease Diabetes Mother , AT AGE 80 Dementia Lung disease Alzheimer disease Grandfather Cancer Family/Other Cancer Aunt - Uterine cancer Son Diabetes Brother Hyperlipidemia Other Hypertension Denies family history of CAD (coronary artery disease) Clotting disorder Psychiatric illness Chronic kidney disease (CKD) Suicide Anesthesia complication Bleeding disorder Stroke Social History (Reviewed 01/13/23 @ 16:26 by FERMIN Osuna Smoking and tobacco status: never smoked Alcohol intake: former Year of sobriety/quit date alcohol: 1 Substance/Drug Use: never Marital status: Current occupational status: employed 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 Physical Exam Const: COMMON NORMALS: no acute distress, average body habitus, patient oriented x3, no limitations, healthy appearing, alert and well nourished ORIENTATION/CONSCIOUSNESS: Yes awake, Yes oriented to person, Yes oriented to place and Yes oriented to time HENMT: COMMON NORMALS: normocephalic and atraumatic HEAD & SCALP: normal to inspection, normocephalic and atraumatic FACE & SINUS: normal facial exam Eye: GENERAL EYE: appearance normal, both eyes and all related structures and normal light reflex DIRECT OPHTHALMOSCOPY: Yes normal light reflex Chest: OTHER: L sided chest rash; large left axillary lymphadenopathy Resp: COMMON NORMALS: normal respiratory effort and clear to auscultation bilaterally AUSCULTATION: clear to auscultation bilaterally Cardio: COMMON NORMALS: regular rate and regular rhythm RATE: regular rate RHYTHM: regular rhythm GI: COMMON NORMALS: Normal to inspection, nondistended, normoactive bowel sounds present, Soft to palpation and non-tender PALPATION: Yes Soft to palpation Extremity: COMMON NORMALS: normal to inspection NARRATIVE EXTREMITY EXAM: L upper extremity rash lesions GENERAL: Yes normal exam except as noted Neuro: RYAN COMA SCALE: document GCS findings Mathews coma scale eye opening: Spontaneous Mathews coma scale verbal response: Orientated Mathews coma scale motor response: Obey commands Mathews coma scale total score: 15 COMMON NORMALS: patient oriented x3, CN's II-XII intact bilaterally, moves all extremities, no focal motor deficits, no sensory deficits noted and gait normal SENSORIUM/ORIENTATION: Yes alert, Yes oriented to person, Yes oriented to place and Yes oriented to time Skin: NARRATIVE SKIN EXAM: pt has classic appearing vesicular herpes zoster rash affecting his anterior left truck and left upper extremity; rash is clustered in appearance on his anterior chest and stops abruptly at midline; he has a few clusters noted to left upper extremity RASHES: rashes noted Course Vital Signs: Vital signs: Vital Signs Temperature 98.2 F 01/13/23 15:41 Pulse Rate 87 01/13/23 15:41 Respiratory Rate 16 01/13/23 15:41 Blood Pressure 121/77 01/13/23 15:41 Pulse Oximetry 100 01/13/23 15:41 MDM - Skin/Abscess/Foreign Bdy Medicial Decision Making Patient has classic uncomplicated herpes zoster rash affecting contiguous dermatomes. He does describe the rash as burning although states this pain is very tolerable. At this time he will be placed on Valtrex 1g TID x 10 days. I think steroids would be unlikely to offer much additional benefit. He does not require opiate pain medication. Recommend follow-up with primary care and or oncology team. Strict return ED precautions given. Discharge Plan Discharge Patient Disposition: Home Clinical Impression: Shingles Qualifiers: Herpes zoster complications: without complications Qualified Code(s): B02.9 - Zoster without complications Condition: Stable Prescriptions: New Valtrex 1 gram tablet 1,000 mg PO Q8H 10 Days Qty: 30 0RF No Action brimonidine-timolol [Combigan] 0.2-0.5 % drops 1 drp ophthalmic (eye) BID Rx Instructions: RIGHT EYE ibuprofen 200 mg capsule 400 mg PO BID Hold Instructions: Resume on 01/07/22. losartan-hydrochlorothiazide 100-12.5 mg tablet 1 tab PO QPM atorvastatin 20 mg tablet 20 mg PO QAM Discharge Orders: Discharge ED (Routine); Ordered 01/13/23 Ordered By: Yashira Dietrich Referrals: Anil Perez MD [Primary Care Provider] - Patient Instructions: Shingles (ED) Coding Level of Care Code ED Research Anthropologist for Landy Cabrales
== END 2023-01-13 16:44 | disposition home or self-care (01) ==
PROVIDERS: Emergency Provider Physician Assistant; PCP Family Medicine
DX: B02.9 Zoster without complications (principal); I10 Essential (primary) hypertension; Z85.820 Personal history of malignant melanoma of skin
CPT/HCPCS: 99283

== ENCOUNTER 2023-01-14 12:00 | Oncology outpatient (recurring) (ONCR) | payer MEDICAID, SELFPAY ==
[2022-12-30 14:29] VITALS: BMI 28.3
[2022-12-30 14:32] VITALS: BP 135/77; PULSE 67; RESP 18; TEMP 36; O2SAT 98
[2022-12-30 15:04] LABS: Basophils % 0.3 %; Eosinophils # 0.2 10^3/uL (0.0-0.8); Eosinophils % 1.7 %; Hematocrit 30.9 % (42.0-52.0); Lymphocytes # 1.5 10^3/uL (0.8-4.8); Lymphocytes % 14.8 %; Mean Corpuscular HGB Conc 32.4 g/dL (30.0-36.0); Mean Corpuscular Hemoglobin 25.3 pg (28.0-34.0); Mean Corpuscular Volume 78.2 fl (80-94); Mean Platelet Volume 9.9 fL (7.4-10.4); Monocytes # 1.2 10^3/uL (0.2-0.9); Monocytes % 11.3 %; Neutrophils # 7.42 10^3/uL (1.8-7.7); Neutrophils % 71.6 %; Nucleated Red Blood Cells % 0 %; Platelet Count 441 10^3/cmm (130-400); Red Blood Count 3.95 10^6/uL (4.1-5.3); Red Cell Distribution Width 14.9 % (12.1-15.1); White Blood Count 10.4 10^3/uL (4.0-10.0)
[2022-12-30 15:31] LABS: Alanine Aminotransferase 13 U/L (0-41); Albumin Level 3.3 g/dL (3.5-5.2); Alkaline Phosphatase 78 U/L (40-130); Anion Gap 12.5 (5-19); Aspartate Amino Transferase 36 U/L (0-40); Blood Urea Nitrogen 14 mg/dL (8-23); Calcium 8.6 mg/dL (8.5-10.5); Carbon Dioxide 30 mmol/L (22-29); Chloride 100 mmol/L (98-107); Globulin 3.5 g/dL (1.3-4.6); Glucose 97 mg/dL (65-115); Osmolality Calculated 288 mOsm/kg (285-295); Potassium 3.5 mmol/L (3.5-5.1); Sodium 139 mmol/L (136-145); Thyroid Stimulating Hormone 1.53 uIU/mL (0.27-4.20); Total Bilirubin 0.2 mg/dL (0.15-1.2); Total Protein 6.8 g/dL (6.6-8.7)
[2022-12-31] MEDS: nivolumab 240 MG in sodium chloride 0.9% 250 ML 548 MG IV (13:40)
[2022-12-31 14:21] VITALS: BP 130/80; PULSE 61; RESP 16; TEMP 36; O2SAT 99
[2023-01-13 15:23] VITALS: BP 111/65; PULSE 76; RESP 18; TEMP 36.2; O2SAT 98
[2023-01-13 15:26] LABS: Basophils % 0.4 %; Eosinophils # 0.2 10^3/uL (0.0-0.8); Eosinophils % 1.3 %; Hematocrit 33.6 % (37-53); Lymphocytes # 1.5 10^3/uL (0.8-4.8); Lymphocytes % 13.5 %; Mean Corpuscular HGB Conc 32.7 g/dL (30-55); Mean Corpuscular Hemoglobin 25.7 pg (27-33); Mean Corpuscular Volume 78.5 fl (82-101); Mean Platelet Volume 9.9 fL (7.4-10.4); Monocytes # 1.4 10^3/uL (0.2-0.9); Monocytes % 12.1 %; Neutrophils # 8.12 10^3/uL (1.8-7.7); Neutrophils % 72.3 %; Nucleated Red Blood Cells % 0 %; Platelet Count 432 10^3/cmm (157-399); Red Blood Count 4.28 10^6/uL (3.85-5.65); Red Cell Distribution Width 15.8 % (12.1-15.1); White Blood Count 11.22 10^3/uL (3.29-11.43)
[2023-01-13 15:50] LABS: Alanine Aminotransferase 11 U/L (0-41); Albumin Level 3.6 g/dL (3.5-5.2); Alkaline Phosphatase 83 U/L (40-130); Anion Gap 13.7 (5-19); Aspartate Amino Transferase 27 U/L (0-40); Blood Urea Nitrogen 15 mg/dL (8-23); Calcium 8.9 mg/dL (8.5-10.5); Carbon Dioxide 28 mmol/L (22-29); Chloride 96 mmol/L (98-107); Globulin 3.6 g/dL (1.3-4.6); Glomerular Filtration Rate 114.3 mL/min (90-130); Glucose 91 mg/dL (65-115); Osmolality Calculated 278 mOsm/kg (285-295); Potassium 3.7 mmol/L (3.5-5.1); Sodium 134 mmol/L (136-145); Total Bilirubin 0.3 mg/dL (0.15-1.2); Total Protein 7.2 g/dL (6.6-8.7)
== END 2023-01-15 23:59 | disposition home or self-care (01) ==
PROVIDERS: Internal Medicine Medical Oncology; Nurse Practitioner Family; PCP Family Medicine; Visit Provider Radiology Radiation Oncology
DX: Z53.9 Procedure and treatment not carried out, unspecified reason
CPT/HCPCS: 36591; 80053; 84443; 85025; 96413; 99215; J1642; J7050; J9299

== ENCOUNTER → 2023-02-05 13:45 | Outpatient (BNVA) | payer MEDICAID, SELFPAY | PROVIDERS: PCP Family Medicine; Visit Provider Dermatology | DX: C79.89 Secondary malignant neoplasm of other specified sites (principal); R59.0 Localized enlarged lymph nodes; C77.9 Secondary and unspecified malignant neoplasm of lymph node, unspecified; L72.0 Epidermal cyst; D23.71 Other benign neoplasm of skin of right lower limb, including hip; D23.72 Other benign neoplasm of skin of left lower limb, including hip; L82.1 Other seborrheic keratosis; Z85.828 Personal history of other malignant neoplasm of skin; L57.0 Actinic keratosis | CPT/HCPCS: 17000; 99214 ==

== ENCOUNTER 2023-02-07 05:25 | Outpatient (CLI) | payer MEDICAID, SELFPAY ==
--- NOTE | 2023-02-07 08:00 | PETR_ITS ---
PROCEDURE INFORMATION: Exam: PET/CT Skull Base to Mid-thigh Exam date and time: 02/07/2023 8:59 AM Age: 62 years old Clinical indication: Condition or disease; Primary cancer: Malignant melanoma of skin. , Follow-up oncological assessment; Additional info: Primary cancer: Malignant melanoma of skin. , Follow-up oncological assessment; Additional info: History LABS AND CLINICAL REPORTS: Glucose: 119 mg/dl Treatment strategy for malignancy (PET staging): Restaging (PS) TECHNIQUE: Imaging protocol: Following at least four-hour fasting and following the injection of radiopharmaceutical, low dose CT images were obtained. Then, PET images were obtained. Attenuation corrected images were constructed using the CT scan. Fused images of PET and CT were reviewed. The standardized uptake values (SUV) reported below are maximum values within a region of interest, expressed in gm/ml. Exam includes orbital meatal line to mid-thigh. Radiopharmaceutical: 12.25 mCi F-18 FDG (Fluorodeoxyglucose), IV. Time of imaging post radiopharmaceutical administration: 1 hour Injection site: Left antecubital COMPARISON: CT chest, abdomen and pelvis 12/12/2022, PT PET [facility] SUBSEQ [id number] 09/27/2022 11:18 AM FINDINGS: Brain: Visualized brain has normal physiologic uptake. Pharynx: No abnormal uptake. Larynx: No abnormal uptake. Lungs, pleura and trachea: No abnormal uptake. A new moderate to large left pleural effusion is noted. A calcified granuloma in the right middle lobe is noted. Heart: Normal physiologic uptake. Mediastinal space: No abnormal uptake. Liver: A non radiotracer avid rounded low-density lesion in the left liver lobe measuring 1.4 cm in diameter likely represents a cyst or hemangioma. Slightly inferior to this level a new rounded approximately 1 cm focus of elevated uptake in the left lobe of the liver demonstrates an SUV max 9.1 without a well-defined lesion on the CT images. Within the dome of the liver there is a similar in size ill-defined low-density lesion measuring 3.6 cm in diameter on series 3, image [address] images with new mild uptake in its right lateral periphery, SUV max 4.3. Gallbladder and bile ducts: Stones in the gallbladder are present. No abnormal uptake. Pancreas: No abnormal uptake. Spleen: Marked splenomegaly is present. Heterogeneous regions of abnormal low-density throughout the spleen are present within SUV max 17.1 (previously 14.9). Increased splenomegaly. Adrenal glands: No abnormal uptake. Kidneys and ureters: Normal physiologic uptake. Stomach and bowel: No abnormal uptake. Reproductive: Focal new intense abnormal uptake in the base of the penis is noted in a new region of hypodensity in the right corpora cavernosum measuring 2.3 x [address] series 3, image 182, SUV max 26.3. Moderate prominence of the prostate gland without elevated uptake. Vasculature: No abnormal uptake. There are diffuse atherosclerotic changes. Lymph nodes: Comparison measurements are made to the prior PET-CT unless otherwise stated. Radiotracer avid left supraclavicular lymphadenopathy is noted, with a lymph node or cluster of lymph nodes currently measuring 4.8 x 3.5 cm in the axial plane (previously 4.2 x 3.1 cm), SUV max 20.9 (previously 11.2). Bilateral axillary lymphadenopathy is present. A soft tissue density mass compatible with an enlarged lymph node or cluster of lymph nodes in the left axilla containing several surgical clips measures 9.0 x 6.7 cm on series 3, image 78, SUV max 20.4 (previously measuring 6.8 x 4.3 cm with a previous SUV max 18.8). Clustered right axillary lymphadenopathy demonstrates an overall measurement of 11.8 x 7.2 cm on series 3, image 80, SUV max 18.0 (previously measuring 9.9 x 4.1 cm with a previous SUV max 19.2). Radiotracer avid mediastinal and bilateral hilar lymph nodes persist. Examples: In the precarinal space measuring 1.3 x 1.4 cm on series 3, image 75, SUV max 4.0 (previously measuring 1.7 x 1.3 cm with a previous SUV max 5.0). Additional smaller mediastinal lymph nodes appears similar in size. Small bilateral hilar lymph nodes are difficult to measure without intravenous contrast. Uptake in the aortopulmonary window demonstrates an SUV max 4.1 (previously 4.7); uptake in the subcarinal space demonstrates an SUV max 3.2 (previously 5.0); uptake in the left hilar region demonstrates an SUV max 3.8 (previously 5.7); and uptake in the right hilar region demonstrates an SUV max 3.8 (previously 7.2). Bones/joints: A lytic lesion arising from the right glenoid is noted with a soft tissue density component. This lesion demonstrates an overall measurement of approximately 1.9 x 3.7 cm on series 3, image 60, SUV max 18.0 (previously 13.6). Previously noted uptake in the intertrochanteric region of the left proximal femur currently demonstrates an SUV max 3.6 (previously 19.0) in a region of ill-defined intramedullary lucency. There are benign-appearing subcortical cystic changes with mild convexity of the anterior superior femoral head/neck junctions which can be associated with CAM type femoroacetabular impingement. Soft tissues: There is a similar non radiotracer avid subcutaneous soft tissue density nodule in the posterior right superior thorax measuring 1.7 cm in diameter on series 3, image 62. There is extensive atrophy of the left semimembranosus muscle without elevated uptake. METRICS: Mediastinal blood pool: SUV max 1.9 PET/PET [facility] SUBSEQ [id number] IMPRESSION: 1. Findings suggest a mixed response to therapy with overall increased volume of neoplastic involvement compared with the prior PET-CT. 2. Interval increase in size of regions of lymphadenopathy in the left supraclavicular region in bilateral axillary regions. The degree of uptake in the left supraclavicular region and left axillary region is increased while uptake in the right axillary region has slightly decreased. 3. Persistent mediastinal and bilateral hilar lymphadenopathy. A dominant lymph node in the precarinal space is slightly decreased in size and overall uptake within the mediastinal and bilateral axillary lymph nodes has decreased. 4. New foci of abnormal uptake within the liver consistent with metastases. 5. Similar appearing lytic lesion in the right glenoid with interval increase in abnormal uptake. Interval decrease in uptake within a metastatic lesion in the proximal left femur. 6. Increased splenomegaly with interval increase in abnormal uptake throughout the spleen consistent with neoplastic involvement. 7. New uptake within a lucent lesion in the penile corpora cavernosum on the right concerning for malignancy. 8. Similar non radiotracer avid subcutaneous nodule of the posterior right hemithorax which may represent a sebaceous cyst. 9. New moderate to large left pleural effusion. 10. Additional nonurgent findings as detailed above.
== END 2023-02-07 05:26 | disposition home or self-care (01) ==
LOC: RAD 02-09 05:25
PROVIDERS: PCP Family Medicine; Visit Provider Internal Medicine Medical Oncology
DX: C43.9 Malignant melanoma of skin, unspecified (principal); C79.51 Secondary malignant neoplasm of bone; R97.20 Elevated prostate specific antigen [PSA]; R59.0 Localized enlarged lymph nodes; R16.1 Splenomegaly, not elsewhere classified; R93.2 Abnormal findings on diagnostic imaging of liver and biliary tract; R93.89 Abnormal findings on diagnostic imaging of other specified body structures; J90 Pleural effusion, not elsewhere classified
CPT/HCPCS: 78815; A9552

== ENCOUNTER 2023-02-11 10:00 | Oncology outpatient (recurring) (ONCR) | payer MEDICAID, SELFPAY ==
[2023-01-28] MEDS: nivolumab 240 MG in sodium chloride 0.9% 250 ML 548 MG IV (10:54)
[2023-01-28 11:41] VITALS: BP 117/67; PULSE 84; RESP 16; TEMP 36.5; O2SAT 99
[2023-02-10 13:53] VITALS: BP 102/73; PULSE 97; RESP 16; TEMP 36.5; O2SAT 94
[2023-02-10 14:14] LABS: Basophils % 0.3 %; Eosinophils # 0.1 10^3/uL (0.0-0.8); Eosinophils % 0.9 %; Lymphocytes # 1.5 10^3/uL (0.8-4.8); Lymphocytes % 13.3 %; Mean Corpuscular HGB Conc 32.8 g/dL (30-55); Mean Corpuscular Hemoglobin 25.9 pg (27-33); Mean Platelet Volume 9.2 fL (7.4-10.4); Monocytes # 1.4 10^3/uL (0.2-0.9); Monocytes % 12.1 %; Neutrophils # 8.44 10^3/uL (1.8-7.7); Neutrophils % 73.1 %; Nucleated Red Blood Cells % 0 %; Platelet Count 641 10^3/cmm (157-399); Red Blood Count 4.05 10^6/uL (3.85-5.65); Red Cell Distribution Width 17.4 % (12.1-15.1); White Blood Count 11.54 10^3/uL (3.29-11.43)
[2023-02-10 14:33] LABS: Alanine Aminotransferase 13 U/L (0-41); Albumin Level 3.5 g/dL (3.5-5.2); Alkaline Phosphatase 87 U/L (40-130); Anion Gap 16.9 (5-19); Aspartate Amino Transferase 20 U/L (0-40); Blood Urea Nitrogen 13 mg/dL (8-23); Calcium 9.2 mg/dL (8.5-10.5); Carbon Dioxide 26 mmol/L (22-29); Chloride 96 mmol/L (98-107); Glomerular Filtration Rate 85.5 mL/min (90-130); Glucose 96 mg/dL (65-115); Osmolality Calculated 280 mOsm/kg (285-295); Potassium 3.9 mmol/L (3.5-5.1); Sodium 135 mmol/L (136-145); Total Bilirubin 0.3 mg/dL (0.15-1.2); Total Protein 7.5 g/dL (6.6-8.7)
[2023-02-10 14:46] LABS: Lactate Dehydrogenase 2289 U/L (135-225)
[2023-02-12 08:52] LABS: Chol HDL Ratio 4.56 mg/dL (1.0-5.00); Cholesterol 155 mg/dL (0-200); HDL Cholesterol 34 mg/dL (60-100); LDL Cholesterol Calculated 99 mg/dL (50-129); LDL HDL Ratio 2.91 RATIO (0.00-3.22); Prostate Specific Antigen Scr 3.68 ng/mL (0-4); Triglycerides 108 mg/dL (0-150)
== END 2023-02-14 23:59 | disposition home or self-care (01) ==
PROVIDERS: PCP Family Medicine; Visit Provider Internal Medicine Medical Oncology
DX: C43.59 Malignant melanoma of other part of trunk (principal); C43.9 Malignant melanoma of skin, unspecified; J91.0 Malignant pleural effusion
CPT/HCPCS: 80053; 80061; 83615; 85025; 96413; 99215; G0103; J1642; J7050; J9299

== ENCOUNTER 2023-02-17 08:38 | Day surgery (SDC) | payer MEDICAID, SELFPAY ==
[2023-02-17 08:55] VITALS: BP 109/77; PULSE 102; RESP 18; TEMP 36.2; O2SAT 99
[2023-02-17 08:59] VITALS: BMI 26.6
--- NOTE | 2023-02-17 10:05 | PM.PROC ---
Procedure Note: Date of procedure: 02/17/23 Pre-procedure diagnosis: Left pleural effusion Post-procedure diagnosis: same Procedure: Mr. Carloz Adan 68-year-old male with past medical history of metastatic malignant melanoma currently receiving maintenance durvalumab-surveillance PET/CT 02/07/2023 showed progression.? Clinically he does have worsening right axillary lymphadenopathy.Oncology has advised him to follow-up with Dr. Mistry and melanoma clinic in [place] to discuss further treatment options. PET CT scan also showed a new large left pleural effusion and he is symptomatic with exertional dyspnea.? He was referred by oncology for evaluation of therapeutic thoracentesis and send fluid for malignant cells. Today he is scheduled for thoracentesis Patient reported a dyspnea on exertion but at rest he is doing fine. Sometimes a humid weather causes him to have dry cough. Reported having suffered with pneumonia in 1980s. Tells me that he has childhood asthma. Currently he is saturating 99% on room air Bedside ultrasound examination showed significantly enlarged spleen with hypoechoic areas. But it did not show significant pocket to drain. Hence canceled thoracentesis. I have advised the patient and his to come back for evaluation if shortness of breath gets worsen or if his saturations drop below 90%. I am going to send prescription for albuterol to use as needed. If he has to use albuterol on frequent basis he agreed to let me know Coding Level of Care Code Acute Code for Chg Fwd Time Spent (min) 23
== END 2023-02-17 10:00 | disposition home or self-care (01) ==
PROVIDERS: PCP Family Medicine; Visit Provider Internal Medicine Pulmonary Disease
PROC: (CPT 32554; principal; 2023-02-17 09:30)
DX: J90 Pleural effusion, not elsewhere classified (principal); Z53.8 Procedure and treatment not carried out for other reasons

== ENCOUNTER 2023-03-11 09:55 | Oncology outpatient (recurring) (ONCR) | payer MEDICAID, SELFPAY ==
[2023-03-11 10:04] VITALS: BP 132/84; PULSE 82; RESP 16; TEMP 36.8; O2SAT 99
== END 2023-03-17 23:59 | disposition home or self-care (01) ==
LOC: ONCMED 09:56
PROVIDERS: PCP Family Medicine; Visit Provider Internal Medicine Medical Oncology
DX: Z45.2 Encounter for adjustment and management of vascular access device (principal)
CPT/HCPCS: J1642

== ENCOUNTER 2023-04-02 09:00 | Oncology outpatient (recurring) (ONCR) | payer MEDICAID, SELFPAY ==
[2023-04-02 09:07] VITALS: BP 108/69; PULSE 72; RESP 18; TEMP 36.4; O2SAT 99
[2023-04-02 09:40] LABS: Basophils % 0.3 %; Eosinophils # 0.1 10^3/uL (0.0-0.8); Eosinophils % 0.9 %; Hematocrit 30.4 % (37-53); Lymphocytes # 1.2 10^3/uL (0.8-4.8); Lymphocytes % 10.6 %; Mean Corpuscular HGB Conc 32.6 g/dL (30-55); Mean Corpuscular Hemoglobin 25.9 pg (27-33); Mean Corpuscular Volume 79.6 fl (82-101); Mean Platelet Volume 9.7 fL (7.4-10.4); Monocytes # 0.9 10^3/uL (0.2-0.9); Monocytes % 7.9 %; Neutrophils # 8.85 10^3/uL (1.8-7.7); Neutrophils % 79.9 %; Nucleated Red Blood Cells % 0 %; Platelet Count 616 10^3/cmm (157-399); Red Blood Count 3.82 10^6/uL (3.85-5.65); Red Cell Distribution Width 15.9 % (12.1-15.1); White Blood Count 11.07 10^3/uL (3.29-11.43)
[2023-04-02 10:31] LABS: Alanine Aminotransferase 8 U/L (0-41); Albumin Level 3.2 g/dL (3.5-5.2); Alkaline Phosphatase 82 U/L (40-130); Anion Gap 16.1 (5-19); Aspartate Amino Transferase 24 U/L (0-40); Blood Urea Nitrogen 13 mg/dL (8-23); Calcium 8.9 mg/dL (8.5-10.5); Carbon Dioxide 27 mmol/L (22-29); Chloride 98 mmol/L (98-107); Globulin 3.7 g/dL (1.3-4.6); Glomerular Filtration Rate 75.5 mL/min (90-130); Glucose 90 mg/dL (65-115); Osmolality Calculated 286 mOsm/kg (285-295); Potassium 3.1 mmol/L (3.5-5.1); Sodium 138 mmol/L (136-145); Thyroid Stimulating Hormone 0.47 uIU/mL (0.27-4.20); Total Bilirubin 0.2 mg/dL (0.15-1.2); Total Protein 6.9 g/dL (6.6-8.7)
[2023-04-02] MEDS: potassium chloride premix 100 ML 50 MEQ IV (11:31)
[2023-04-02] MEDS: denosumab 120 mg SDV SUBCUT (11:35)
[2023-04-02 11:49] LABS: Iron 29 ug/dL (59-158); Magnesium 1.7 mg/dL (1.7-2.3); Percent Saturation 17.2 % (20-50); Total Iron Binding Capacity 168 mcg/dl; Unsaturated Iron Binding 139 ug/dL (112-347)
[2023-04-02] MEDS: nivo-relat 12mg-4mg/mL 40 ML in sodium chloride 0.9% 250 ML 580 ML IV (12:48)
[2023-04-02 13:51] VITALS: BP 115/74; PULSE 81; O2SAT 98
== END 2023-04-02 23:59 | disposition home or self-care (01) ==
PROVIDERS: Nurse Practitioner Family; PCP Family Medicine; Visit Provider Internal Medicine Medical Oncology
DX: C43.9 Malignant melanoma of skin, unspecified (principal); E87.6 Hypokalemia; D64.9 Anemia, unspecified; Z79.899 Other long term (current) drug therapy; Z51.11 Encounter for antineoplastic chemotherapy
CPT/HCPCS: 80053; 83540; 83550; 83735; 84443; 85025; 96367; 96372; 96413; 99214; 99215; J0897; J1642; J3480; J7050; J9298

== ENCOUNTER 2023-04-30 10:01 | Oncology outpatient (recurring) (ONCR) | payer MEDICAID, SELFPAY ==
[2023-04-30 10:40] VITALS: BP 97/71; PULSE 91; RESP 16; TEMP 36.3; O2SAT 96
[2023-04-30 10:46] LABS: Basophils % 0.3 %; Eosinophils # 0.1 10^3/uL (0.0-0.8); Eosinophils % 0.6 %; Hematocrit 30.9 % (37-53); Lymphocytes # 1.3 10^3/uL (0.8-4.8); Lymphocytes % 11.9 %; Mean Platelet Volume 9.1 fL (7.4-10.4); Monocytes % 9.3 %; Neutrophils % 77.5 %; Nucleated Red Blood Cells % 0 %; Platelet Count 725 10^3/cmm (157-399); Red Blood Count 3.96 10^6/uL (3.85-5.65); Red Cell Distribution Width 15.9 % (12.1-15.1); White Blood Count 10.96 10^3/uL (3.29-11.43)
[2023-04-30 11:16] LABS: Alanine Aminotransferase 9 U/L (0-41); Albumin Level 3.3 g/dL (3.5-5.2); Alkaline Phosphatase 83 U/L (40-130); Anion Gap 15.3 (5-19); Aspartate Amino Transferase 29 U/L (0-40); Blood Urea Nitrogen 19 mg/dL (8-23); Calcium 8.7 mg/dL (8.5-10.5); Carbon Dioxide 24 mmol/L (22-29); Chloride 101 mmol/L (98-107); Globulin 3.8 g/dL (1.3-4.6); Glomerular Filtration Rate 85.2 mL/min (90-130); Glucose 96 mg/dL (65-115); Osmolality Calculated 284 mOsm/kg (285-295); Potassium 4.3 mmol/L (3.5-5.1); Sodium 136 mmol/L (136-145); Thyroid Stimulating Hormone 1.09 uIU/mL (0.27-4.20); Total Bilirubin 0.3 mg/dL (0.15-1.2); Total Protein 7.1 g/dL (6.6-8.7)
[2023-04-30] MEDS: denosumab 120 mg SDV SUBCUT (12:57)
[2023-04-30] MEDS: sodium chloride 0.9% 250 ML 75 ML IV (12:57)
[2023-04-30] MEDS: nivo-relat 12mg-4mg/mL 40 ML in sodium chloride 0.9% 250 ML 580 ML IV (13:10)
[2023-04-30 13:40] LABS: Iron 27 ug/dL (59-158); Percent Saturation 15.6 % (20-50); Total Iron Binding Capacity 173 mcg/dl; Unsaturated Iron Binding 146 ug/dL (112-347)
[2023-04-30 13:49] LABS: Reticulocyte % 0.9 % (0.5-2.0)
[2023-04-30 13:53] LABS: Ferritin 1117 ng/mL (30-400); Lactate Dehydrogenase 2301 U/L (135-225)
[2023-04-30 13:59] VITALS: BP 105/70; PULSE 88; RESP 18; O2SAT 99
[2023-05-05 17:00] LABS: Soluble Transferrin Receptor 1.38 mg/L (0.76-1.76)
== END 2023-04-30 23:59 | disposition home or self-care (01) ==
PROVIDERS: Internal Medicine; Nurse Practitioner Family; PCP Family Medicine; Visit Provider Internal Medicine Medical Oncology
DX: C43.9 Malignant melanoma of skin, unspecified (principal); Z51.11 Encounter for antineoplastic chemotherapy
CPT/HCPCS: 80053; 82728; 83540; 83550; 83615; 84238; 84443; 85025; 85045; 96372; 96413; 99215; J0897; J1642; J7050; J9298

== ENCOUNTER 2023-05-28 08:54 | Oncology outpatient (recurring) (ONCR) | payer MEDICAID, SELFPAY ==
[2023-05-28 09:10] VITALS: BP 101/66; PULSE 65; RESP 16; TEMP 36.7; O2SAT 100
[2023-05-28 09:14] LABS: Basophils # 0.1 10^3/uL (0.0-0.1); Basophils % 0.4 %; Eosinophils % 0.3 %; Hematocrit 29.6 % (37-53); Lymphocytes # 1.2 10^3/uL (0.8-4.8); Mean Corpuscular HGB Conc 32.4 g/dL (30-55); Mean Corpuscular Hemoglobin 24.9 pg (27-33); Mean Corpuscular Volume 76.9 fl (82-101); Monocytes # 1.4 10^3/uL (0.2-0.9); Monocytes % 11.1 %; Neutrophils # 9.45 10^3/uL (1.8-7.7); Neutrophils % 77.8 %; Nucleated Red Blood Cells % 0 %; Platelet Count 719 10^3/cmm (157-399); Red Blood Count 3.85 10^6/uL (3.85-5.65); Red Cell Distribution Width 16.4 % (12.1-15.1); White Blood Count 12.16 10^3/uL (3.29-11.43)
[2023-05-28 09:41] LABS: Alanine Aminotransferase 8 U/L (0-41); Albumin Level 3.2 g/dL (3.5-5.2); Alkaline Phosphatase 79 U/L (40-130); Anion Gap 15.1 (5-19); Aspartate Amino Transferase 30 U/L (0-40); Blood Urea Nitrogen 18 mg/dL (8-23); Calcium 8.7 mg/dL (8.5-10.5); Carbon Dioxide 24 mmol/L (22-29); Chloride 99 mmol/L (98-107); Glomerular Filtration Rate 67.6 mL/min (90-130); Glucose 97 mg/dL (65-115); Osmolality Calculated 280 mOsm/kg (285-295); Potassium 4.1 mmol/L (3.5-5.1); Sodium 134 mmol/L (136-145); Thyroid Stimulating Hormone 1.88 uIU/mL (0.27-4.20); Total Bilirubin 0.2 mg/dL (0.15-1.2); Total Protein 7.2 g/dL (6.6-8.7)
[2023-05-28 09:53] LABS: Lactate Dehydrogenase 2487 U/L (135-225)
[2023-05-28] MEDS: nivo-relat 12mg-4mg/mL 40 ML in sodium chloride 0.9% 250 ML 580 ML IV (11:35)
[2023-05-28 11:48] LABS: Iron 16 ug/dL (59-158); Magnesium 1.9 mg/dL (1.7-2.3); Percent Saturation 9.3 % (20-50); Total Iron Binding Capacity 172 mcg/dl; Unsaturated Iron Binding 156 ug/dL (112-347)
[2023-05-28 12:01] LABS: Ferritin 1297 ng/mL (30-400)
[2023-05-28 12:27] VITALS: BP 97/65; PULSE 88; TEMP 35.9; O2SAT 97
== END 2023-05-28 23:59 | disposition home or self-care (01) ==
PROVIDERS: Internal Medicine; Nurse Practitioner Family; PCP Family Medicine; Visit Provider Internal Medicine Medical Oncology
DX: D64.9 Anemia, unspecified; E87.6 Hypokalemia; D72.829 Elevated white blood cell count, unspecified
CPT/HCPCS: 80053; 82728; 83540; 83550; 83615; 83735; 84443; 85025; 96413; 99214; J1642; J7050; J9298

== ENCOUNTER → 2023-06-03 14:05 | Outpatient (BNVA) | payer MEDICAID, SELFPAY | PROVIDERS: PCP Family Medicine; Visit Provider Dermatology | DX: C79.89 Secondary malignant neoplasm of other specified sites (principal); R59.0 Localized enlarged lymph nodes; Z85.828 Personal history of other malignant neoplasm of skin; L57.0 Actinic keratosis; L72.0 Epidermal cyst | CPT/HCPCS: 17000; 99213 ==

== ENCOUNTER → 2023-06-04 09:48 | Outpatient (BNVA) | payer MEDICAID, SELFPAY | PROVIDERS: PCP Family Medicine; Referring Provider Internal Medicine Medical Oncology; Visit Provider Internal Medicine Pulmonary Disease | DX: R06.02 Shortness of breath (principal) | CPT/HCPCS: 36415; 82785; 86003 ==

== ENCOUNTER → 2023-06-04 09:48 | Outpatient (BNVA) | payer MEDICAID, SELFPAY | PROVIDERS: PCP Family Medicine; Referring Provider Internal Medicine Medical Oncology; Visit Provider Internal Medicine Pulmonary Disease | DX: C43.9 Malignant melanoma of skin, unspecified (principal); J90 Pleural effusion, not elsewhere classified; J45.909 Unspecified asthma, uncomplicated | CPT/HCPCS: 99204 ==

== ENCOUNTER 2023-06-17 08:17 | Oncology outpatient (recurring) (ONCR) | payer MEDICAID, SELFPAY ==
[2023-06-17 09:10] VITALS: BP 89/59; PULSE 90; RESP 16; TEMP 36.7; O2SAT 99
[2023-06-17] MEDS: sodium chloride 0.9% 250 ML 75 ML IV (09:26)
[2023-06-17] MEDS: iron sucrose 200 MG in sodium chloride 0.9% (100 ml) 100 ML 220 MG IV (09:26)
[2023-06-17 10:04] VITALS: BP 87/59; PULSE 77; RESP 16; TEMP 36.2; O2SAT 94
== END 2023-06-17 23:59 | disposition home or self-care (01) ==
LOC: ONCMED 08:18
PROVIDERS: PCP Family Medicine; Visit Provider Internal Medicine Medical Oncology
DX: C43.9 Malignant melanoma of skin, unspecified (principal); Z45.2 Encounter for adjustment and management of vascular access device; C43.59 Malignant melanoma of other part of trunk; C77.8 Secondary and unspecified malignant neoplasm of lymph nodes of multiple regions; C78.7 Secondary malignant neoplasm of liver and intrahepatic bile duct; C79.89 Secondary malignant neoplasm of other specified sites; C79.51 Secondary malignant neoplasm of bone; R74.01 Elevation of levels of liver transaminase levels; D72.829 Elevated white blood cell count, unspecified; Z79.899 Other long term (current) drug therapy; E87.6 Hypokalemia; R97.20 Elevated prostate specific antigen [PSA]; C44.91 Basal cell carcinoma of skin, unspecified; Z51.12 Encounter for antineoplastic immunotherapy
CPT/HCPCS: 96365; J1642; J1756; J7050

== ENCOUNTER 2023-06-24 08:02 | Outpatient (CLI) | payer MEDICAID, SELFPAY ==
[2023-06-24 08:22] VITALS: PULSE 109; RESP 18; O2SAT 98
[2023-06-24 08:27] VITALS: PULSE 104
[2023-06-24] MEDS: albuterol 2.5 mg/3 mL Neb INHALATION (08:28)
== END 2023-06-24 08:03 | disposition home or self-care (01) ==
PROVIDERS: PCP Family Medicine; Visit Provider Internal Medicine Pulmonary Disease
DX: R06.02 Shortness of breath (principal)
CPT/HCPCS: 36415; 82785; 86003; 94060; 94618; 94726; 94729; J7613

== ENCOUNTER 2023-06-25 10:00 | Oncology outpatient (recurring) (ONCR) | payer MEDICAID, SELFPAY ==
[2023-06-19 08:30] VITALS: BP 100/67; PULSE 91; RESP 16; TEMP 36.1; O2SAT 98
[2023-06-19] MEDS: sodium chloride 0.9% 250 ML 75 ML IV (08:35)
[2023-06-19] MEDS: iron sucrose 200 MG in sodium chloride 0.9% (100 ml) 100 ML 220 MG IV (08:35)
[2023-06-22] MEDS: sodium chloride 0.9% 250 ML 75 ML IV (08:59)
[2023-06-22] MEDS: iron sucrose 200 MG in sodium chloride 0.9% (100 ml) 100 ML 220 MG IV (08:59)
[2023-06-24 09:20] VITALS: BP 116/81; RESP 17; TEMP 35.9; O2SAT 96
[2023-06-24] MEDS: sodium chloride 0.9% 250 ML 50 ML IV (09:27)
[2023-06-24] MEDS: iron sucrose 200 MG in sodium chloride 0.9% (100 ml) 100 ML 220 MG IV (09:30)
[2023-06-24 10:34] VITALS: BP 127/83; PULSE 87; TEMP 36.2; O2SAT 93
[2023-06-25 10:30] LABS: Basophils % 0.2 %; Eosinophils % 0.3 %; Hematocrit 27.8 % (37-53); Lymphocytes # 0.9 10^3/uL (0.8-4.8); Lymphocytes % 5.8 %; Mean Corpuscular Hemoglobin 25.3 pg (27-33); Mean Platelet Volume 9.4 fL (7.4-10.4); Monocytes # 1.6 10^3/uL (0.2-0.9); Monocytes % 10.7 %; Neutrophils # 12.64 10^3/uL (1.8-7.7); Neutrophils % 82.5 %; Nucleated Red Blood Cells % 0 %; Platelet Count 694 10^3/cmm (157-399); Red Blood Count 3.52 10^6/uL (3.85-5.65); Red Cell Distribution Width 18.2 % (12.1-15.1); White Blood Count 15.31 10^3/uL (3.29-11.43)
[2023-06-25 10:58] LABS: Alanine Aminotransferase < 5 U/L (0-41); Albumin Level 3.2 g/dL (3.5-5.2); Alkaline Phosphatase 69 U/L (40-130); Anion Gap 13.8 (5-19); Aspartate Amino Transferase 25 U/L (0-40); Blood Urea Nitrogen 19 mg/dL (8-23); Calcium 8.5 mg/dL (8.5-10.5); Carbon Dioxide 25 mmol/L (22-29); Chloride 97 mmol/L (98-107); Globulin 3.8 g/dL (1.3-4.6); Glomerular Filtration Rate 113.9 mL/min (90-130); Glucose 129 mg/dL (65-115); Iron 21 ug/dL (59-158); Osmolality Calculated 278 mOsm/kg (285-295); Percent Saturation 14.5 % (20-50); Potassium 3.8 mmol/L (3.5-5.1); Sodium 132 mmol/L (136-145); Thyroid Stimulating Hormone 1.08 uIU/mL (0.27-4.20); Total Bilirubin 0.2 mg/dL (0.15-1.2); Total Iron Binding Capacity 144 mcg/dl; Unsaturated Iron Binding 123 ug/dL (112-347)
[2023-06-25] MEDS: sodium chloride 0.9% 250 ML 75 ML IV (12:25)
[2023-06-25] MEDS: nivo-relat 12mg-4mg/mL 40 ML in sodium chloride 0.9% 250 ML 580 ML IV (12:34)
== END 2023-06-25 23:59 | disposition home or self-care (01) ==
PROVIDERS: Nurse Practitioner Family; PCP Family Medicine; Visit Provider Internal Medicine Medical Oncology
DX: Z53.9 Procedure and treatment not carried out, unspecified reason (principal); C43.9 Malignant melanoma of skin, unspecified; C79.51 Secondary malignant neoplasm of bone; Z79.899 Other long term (current) drug therapy; Z51.12 Encounter for antineoplastic immunotherapy
CPT/HCPCS: 80053; 83540; 83550; 84443; 85025; 96365; 96413; 99214; A4222; J1642; J1756; J7050; J9298

== ENCOUNTER 2023-06-30 07:52 | Outpatient (CLI) | payer MEDICAID, SELFPAY ==
--- NOTE | 2023-06-30 08:00 | PETR_ITS ---
PROCEDURE INFORMATION: Exam: PET/CT Skull Base to Mid-thigh Exam date and time: 06/30/2023 8:53 AM Age: 63 years old Clinical indication: Condition or disease; Primary cancer: Melanoma; Follow-up oncological assessment; Additional info: Restaging, results sent to Dr. Mistry, melanoma expert at [facility].. There is a provided history of immunotherapy 06/25/2023. History of radiation therapy last year. LABS AND CLINICAL REPORTS: Glucose: 114 mg/dl Treatment strategy for malignancy (PET staging): Restaging (PS) TECHNIQUE: Imaging protocol: Following at least four-hour fasting and following the injection of radiopharmaceutical, low dose CT images were obtained. Then, PET images were obtained. Attenuation corrected images were constructed using the CT scan. Fused images of PET and CT were reviewed. The standardized uptake values (SUV) reported below are maximum values within a region of interest, expressed in gm/ml. Exam includes orbital meatal line to mid-thigh. Radiopharmaceutical: 11.81 mCi F-18 FDG (Fluorodeoxyglucose), IV. Time of imaging post radiopharmaceutical administration: 1 hour Injection site: Left antecubital COMPARISON: PT PET [facility] SUBSEQ [id number] 02/07/2023 8:59 AM FINDINGS: Tubes, catheters and devices: A right subclavian central venous port catheter terminates in the SVC. Brain: An asymmetric focus of elevated uptake in the inferior left frontal lobe is noted, SUV max 8.7 on PET series 12, image 35 without a definite correlating lesion on the CT images. Pharynx: No abnormal uptake. Larynx: No abnormal uptake. Lungs, pleura and trachea: No abnormal uptake. Large left pleural effusion. A right middle lobe calcified granuloma is present. Heart: Normal physiologic uptake. Mediastinal space: No abnormal uptake. Liver: A rounded low-density lesion in the left lobe of the liver measuring approximately 2.6 cm (previously 1.0 cm) in diameter on series 3, image 182 is present, SUV max 7.0 (previously 9.1). Additional low-density lesions in the liver remain non radiotracer avid in the left lobe measuring 1.7 x 1.4 cm (previously 1.4 cm) on series 3, image 175 and similar in size in the dome of the liver measuring 3.4 cm in diameter on image 153. Gallbladder and bile ducts: No abnormal uptake. Stones in the gallbladder are present. Pancreas: No abnormal uptake. Spleen: There is increased marked splenomegaly, measuring 19 cm superior to inferior by 18.8 mild herzog 0.9 cm in the axial plane. Multifocal regions of abnormal uptake in the spleen are noted primarily within its periphery, SUV max 11.4 (previously 17.1). Adrenal glands: No abnormal uptake. Kidneys and ureters: Normal physiologic uptake. Stomach and bowel: No abnormal uptake. Reproductive: There is moderate prominence of the prostate gland without elevated uptake. An ovoid region of low density involving the right and left corpora cavernosa of the penis is noted measuring 5.6 x 3.2 cm (previously measuring 2.3 x 1.7 cm involving the right corpora cavernosum) on series 3, image 281 with elevated uptake, SUV max 15.2 (previously 26.3). Vasculature: No abnormal uptake. There are diffuse atherosclerotic changes. A small amount of free fluid in the pelvis is present. Lymph nodes: A left supraclavicular lymph node mass with central low density somewhat obscured by beam hardening artifact, measuring 3.9 x 5.2 cm (previously 4.8 x 3.5 cm) on series 3, image 93 without elevated uptake, SUV max 1.6 (previously 20.9). A left axillary/left chest wall heterogeneous soft tissue density lymph node mass containing surgical clips measures 7.9 x 12.0 cm (previously 9.0 x 6.7 cm) on series 3, image 130, SUV max 13.8 (previously 20.4). A multilobulated heterogeneous soft tissue density lymph node mass of the right axilla/lateral right chest wall demonstrates a maximal transverse dimension of 12.8 x 15.5 cm (previously 11.8 x 7.2 cm) on series 3 image 127, SUV max 15.2 (previously 18.0). Mediastinal bilateral hilar lymph nodes are no longer radiotracer avid and appear grossly similar in size. Bones/joints: Abated uptake in the proximal left femoral shaft and intertrochanteric region appears increased in size, associated with mild intramedullary lucency, SUV max 11.2 (previously 3.6). A destructive lucent lesion involving the right glenoid demonstrates a similar appearance within the glenoid with increased size of a posteriorly projecting soft tissue component with elevated uptake in this region demonstrating an SUV max 8.5 (previously 18.0). Mild abnormal convexity and mild subcortical cystic changes at the bilateral femoral head/neck junctions are noted which appear benign. These findings can be associated with CAM type femoroacetabular impingement. Degenerative changes in the spine are present. Soft tissues: A solid subcutaneous nodule in the lateral right gluteal region measures 1.7 x 1.2 cm on series 3, image 230, SUV max 12.7. A previously noted subcutaneous nodule in the posterior right chest wall currently measures 2.1 cm in diameter on series 3, image 95 (previously 1.7 cm) and remains non radiotracer avid. METRICS: Mediastinal blood pool: SUV max 1.6. PET/PET [facility] SUBSEQ [id number] IMPRESSION: 1. Findings suggest a mixed response to therapy. 2. Clustered lymph node masses in the left supraclavicular region and bilateral axillary regions are increased in size but demonstrate decreased uptake since the previous exam consistent with partial response to therapy. 3. Similar size of mediastinal and bilateral hilar lymph nodes which are no longer radiotracer avid. 4. Interval increase in size of a radiotracer avid lesion in the left lobe of the liver with persistent but slightly decreased uptake consistent with partial response to therapy. 5. Increase marked splenomegaly with persistent but slightly decreased abnormal uptake consistent with partial response to therapy. 6. Similar number of radiotracer avid osseous lesions with increased uptake in the proximal left femoral lesion and decreased uptake in the right glenoid lesion. No new radiotracer avid osseous lesions are identified. 7. New radiotracer avid nodule in the lateral right gluteal fat consistent with malignancy. 8. Possible new radiotracer avid metastatic focus within the inferior left frontal lobe. Consider MRI of the brain with and without contrast for further assessment. 9. Increased size of abnormal low-density in the corpora cavernosa of the penis now involving the left corpora cavernosa as well as the right, with increased uptake in this region with persistent but decreased elevated uptake in this region. 10. Increased size of a non radiotracer avid cystic lesion in the posterior right thoracic subcutaneous fat. 11. Additional nonurgent findings as detailed above.
== END 2023-06-30 07:53 | disposition home or self-care (01) ==
LOC: RAD 07:53
PROVIDERS: PCP Family Medicine; Visit Provider Nurse Practitioner Family
DX: C43.9 Malignant melanoma of skin, unspecified (principal); R59.0 Localized enlarged lymph nodes; R16.1 Splenomegaly, not elsewhere classified; Z92.3 Personal history of irradiation; Z92.29 Personal history of other drug therapy; M89.9 Disorder of bone, unspecified; R93.89 Abnormal findings on diagnostic imaging of other specified body structures
CPT/HCPCS: 78815; A9552

== ENCOUNTER 2023-07-08 12:45 | Oncology outpatient (recurring) (ONCR) | payer MEDICAID, SELFPAY ==
[2023-06-26 08:33] VITALS: BP 108/73; PULSE 100; RESP 16; TEMP 36.7; O2SAT 95
[2023-06-26] MEDS: iron sucrose 200 MG in sodium chloride 0.9% (100 ml) 100 ML 220 MG IV (09:01)
[2023-06-26 09:43] VITALS: BP 98/66; PULSE 92; RESP 14; TEMP 36.4; O2SAT 96
[2023-07-08 12:23] LABS: Basophils # 0.1 10^3/uL (0.0-0.1); Basophils % 0.4 %; Eosinophils # 0.1 10^3/uL (0.0-0.8); Hematocrit 26.9 % (37-53); Lymphocytes # 1.2 10^3/uL (0.8-4.8); Lymphocytes % 9.1 %; Mean Corpuscular Hemoglobin 24.9 pg (27-33); Mean Platelet Volume 8.9 fL (7.4-10.4); Monocytes # 1.4 10^3/uL (0.2-0.9); Monocytes % 9.9 %; Neutrophils # 10.84 10^3/uL (1.8-7.7); Neutrophils % 79.2 %; Nucleated Red Blood Cells % 0 %; Platelet Count 1057 10^3/cmm (157-399); Red Blood Count 3.45 10^6/uL (3.85-5.65); Red Cell Distribution Width 18.1 % (12.1-15.1); White Blood Count 13.67 10^3/uL (3.29-11.43)
[2023-07-08 12:52] LABS: Alanine Aminotransferase 10 U/L (0-41); Albumin Level 3.2 g/dL (3.5-5.2); Alkaline Phosphatase 72 U/L (40-130); Aspartate Amino Transferase 30 U/L (0-40); Blood Urea Nitrogen 21 mg/dL (8-23); Calcium 8.4 mg/dL (8.5-10.5); Carbon Dioxide 24 mmol/L (22-29); Chloride 97 mmol/L (98-107); Globulin 3.8 g/dL (1.3-4.6); Glomerular Filtration Rate 85.2 mL/min (90-130); Glucose 97 mg/dL (65-115); Iron 17 ug/dL (59-158); Osmolality Calculated 277 mOsm/kg (285-295); Percent Saturation 11.8 % (20-50); Sodium 132 mmol/L (136-145); Thyroid Stimulating Hormone 1.25 uIU/mL (0.27-4.20); Total Bilirubin 0.2 mg/dL (0.15-1.2); Total Iron Binding Capacity 144 mcg/dl; Unsaturated Iron Binding 127 ug/dL (112-347)
== END 2023-07-16 23:59 | disposition home or self-care (01) ==
PROVIDERS: Nurse Practitioner Family; PCP Family Medicine; Visit Provider Internal Medicine Medical Oncology
DX: C77.8 Secondary and unspecified malignant neoplasm of lymph nodes of multiple regions (principal); Z53.9 Procedure and treatment not carried out, unspecified reason; C79.51 Secondary malignant neoplasm of bone; C78.7 Secondary malignant neoplasm of liver and intrahepatic bile duct; C78.89 Secondary malignant neoplasm of other digestive organs; Z85.820 Personal history of malignant melanoma of skin; Z85.828 Personal history of other malignant neoplasm of skin; Z92.3 Personal history of irradiation; L02.91 Cutaneous abscess, unspecified; Z79.899 Other long term (current) drug therapy; D50.9 Iron deficiency anemia, unspecified; E87.6 Hypokalemia; Z87.891 Personal history of nicotine dependence
CPT/HCPCS: 36591; 80053; 83540; 83550; 84443; 85025; 96365; 99215; J1642; J1756

== ENCOUNTER → 2023-07-09 15:06 | Outpatient (BNVA) | payer MEDICAID, SELFPAY | PROVIDERS: PCP Family Medicine; Visit Provider Surgery | DX: C43.9 Malignant melanoma of skin, unspecified (principal); Z79.899 Other long term (current) drug therapy | CPT/HCPCS: 99203 ==

== ENCOUNTER 2023-07-23 09:18 | Oncology outpatient (recurring) (ONCR) | payer MEDICAID, SELFPAY ==
[2023-07-23 09:49] LABS: Basophils # 0.1 10^3/uL (0.0-0.1); Basophils % 0.3 %; Eosinophils # 0.1 10^3/uL (0.0-0.8); Eosinophils % 0.7 %; Hematocrit 29.1 % (37-53); Lymphocytes # 1.5 10^3/uL (0.8-4.8); Lymphocytes % 8.2 %; Mean Corpuscular HGB Conc 31.6 g/dL (30-55); Mean Corpuscular Hemoglobin 25.2 pg (27-33); Mean Corpuscular Volume 79.7 fl (82-101); Mean Platelet Volume 9.6 fL (7.4-10.4); Monocytes # 1.9 10^3/uL (0.2-0.9); Monocytes % 10.2 %; Neutrophils # 14.92 10^3/uL (1.8-7.7); Neutrophils % 80.1 %; Nucleated Red Blood Cells % 0 %; Platelet Count 953 10^3/cmm (157-399); Red Blood Count 3.65 10^6/uL (3.85-5.65); Red Cell Distribution Width 17.6 % (12.1-15.1); White Blood Count 18.64 10^3/uL (3.29-11.43)
[2023-07-23 10:24] LABS: Alanine Aminotransferase 10 U/L (0-41); Albumin Level 3.3 g/dL (3.5-5.2); Alkaline Phosphatase 74 U/L (40-130); Aspartate Amino Transferase 26 U/L (0-40); Blood Urea Nitrogen 40 mg/dL (8-23); Calcium 8.6 mg/dL (8.5-10.5); Carbon Dioxide 22 mmol/L (22-29); Chloride 96 mmol/L (98-107); Globulin 4.3 g/dL (1.3-4.6); Glomerular Filtration Rate 67.6 mL/min (90-130); Glucose 124 mg/dL (65-115); Osmolality Calculated 293 mOsm/kg (285-295); Sodium 136 mmol/L (136-145); Thyroid Stimulating Hormone 1.82 uIU/mL (0.27-4.20); Total Bilirubin 0.2 mg/dL (0.15-1.2); Total Protein 7.6 g/dL (6.6-8.7)
[2023-07-23 10:37] LABS: Lactate Dehydrogenase 2126 U/L (135-225)
[2023-07-23] MEDS: denosumab 120 mg SDV SUBCUT (11:44)
[2023-07-23] MEDS: nivo-relat 12mg-4mg/mL 40 ML in sodium chloride 0.9% 250 ML 580 ML IV (11:45)
[2023-07-23 12:31] VITALS: BP 101/68; PULSE 92; RESP 16; TEMP 36.6; O2SAT 99
[2023-07-23 12:37] LABS: Iron 23 ug/dL (59-158); Percent Saturation 13.4 % (20-50); Total Iron Binding Capacity 171 mcg/dl; Unsaturated Iron Binding 148 ug/dL (112-347)
== END 2023-07-23 23:59 | disposition home or self-care (01) ==
PROVIDERS: Internal Medicine; Nurse Practitioner Family; PCP Family Medicine; Visit Provider Internal Medicine Medical Oncology
DX: C43.59 Malignant melanoma of other part of trunk; D50.9 Iron deficiency anemia, unspecified; Z51.12 Encounter for antineoplastic immunotherapy; Z95.828 Presence of other vascular implants and grafts; E87.6 Hypokalemia; C77.3 Secondary and unspecified malignant neoplasm of axilla and upper limb lymph nodes; C77.0 Secondary and unspecified malignant neoplasm of lymph nodes of head, face and neck; C78.7 Secondary malignant neoplasm of liver and intrahepatic bile duct; C78.89 Secondary malignant neoplasm of other digestive organs; Z79.899 Other long term (current) drug therapy
CPT/HCPCS: 80053; 83540; 83550; 83615; 84443; 85025; 96372; 96413; 99214; J0897; J1642; J7050; J9298

== ENCOUNTER 2023-08-11 13:42 | Oncology outpatient (recurring) (ONCR) | payer MEDICAID, SELFPAY ==
[2023-07-30 08:52] VITALS: BP 72/58
[2023-07-30] MEDS: sodium chloride 0.9% 500 ML 999 ML IV (09:29)
[2023-07-30] MEDS: diphenhydrAMINE 50 mg/mL SDV 1mL 25 MG IVP (09:55)
[2023-07-30] MEDS: acetaminophen 325 mg Tablet 650 MG PO (09:56)
[2023-07-30] MEDS: iron dextran 25 MG in SYRINGE 1 EACH 30 MG IVP (10:03)
[2023-07-30] MEDS: iron dextran 1,000 MG in sodium chloride 0.9% 1,000 ML 250.75 MG IV (11:01)
[2023-07-30 15:13] VITALS: BP 86/56; PULSE 77; RESP 18; TEMP 36.7; O2SAT 92
[2023-08-11 15:01] VITALS: RESP 18
[2023-08-11] MEDS: oxyCODONE 5 mg IR Tab/Cap PO (15:01)
--- NOTE | 2023-08-11 15:10 | ONCRAD EPV_ITS ---
Radiation Oncology Established Patient Visit Patient: Carloz Adan [id number] : 1960 Age: 63 Sex: Male Dictated by: Dr. 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 Carloz Adan, is a 62-year-old gentleman with a history of melanoma involving mid upper back, underwent excisional biopsy on July 17, 2021 which showed melanoma in situ extends focally into the lateral edge and invasive melanoma extends close to the deep edge, depth of invasive 15.7 mm surface ulceration is present, T4b, NX MX, subsequently underwent CT PET scan on August 24, 2021 which showed bilateral FDG positive axillary lymph nodes consistent with metastatic disease. Index node in the left axilla measuring 4.2 x 4 cm with SUV of 18.7 and demonstrates central necrosis. A secondary left axillary lymph node measuring 1.3 x 1.6 cm with SUV of 8.5. And index right axillary lymph node measuring 1.3 cm SUV of 8.1. And mild postsurgical inflammatory changes in the midline right upper back He subsequently was found to have liver and spleen metastasis and was started on nivolumab. By May 2022 had progression of his disease and additional agent was added in the form of ipilimumab. By September 2022 his PET scan showed mixed response. In December he underwent radiation to the left proximal femur due to a lytic lesion. In March he was switched to Opdualag. He has noticed since that time he has had increasing problems with drainage and bleeding from the axillary masses which have continued to progress. He has been recently on a 10-day course of antibiotics without improvement. He is here today to consider palliative radiation to try and get the axillary masses and the drainage under control. Radiotherapy to Date: Course: Bone Mets 2022, Treatment Site: Bone Met - Lt Proximal Femur, Ref. ID: [id number], Energy: 15X, Dose/Fx (cGy): 800, #Fx: , Dose Correction (cGy): 0, Total Dose Delivered (cGy): 800, Start Date: 12/19/2022, End Date: 12/19/2022, Elapsed Days: 0 Current History: Current Medications: Atorvastatin Calcium, combigan, ibuprofen, losartan Potassium, mylanta. Allergies: Naproxen, Penicillins and Aspirin. Current Complaints / Review of Systems: . Vital Signs: Physical Exam: General: Alert and oriented x 3 patient is accompanied today by family member HEENT: Normocephalic, atraumatic. Extraocular Movements Intact: Pupils Equal, Round, Reactive to Light . Sclera clear. LUNGS respiratory rate is regular nonlabored HEART: Regular rate and rhythm, Axillary area: Even through his shirt you can palpate the large masses under both axilla. Both of them are wrapped with bandages. The easily are the size of grapefruit's on both sides.. ABDOMEN: He has minimal adipose tissue EXTREMITIES: No peripheral edema is identified. NEUROLOGIC: Alert and orient x 3. Gait and speech within normal limits patient is extremely hard of hearing. Performance Status: KPS80 Lab: None pending. Pathology: Primary, c79.51 - secondary malignant neoplasm of bone, Diagnosed 05/2022 (active) and Primary, c43.59 - malignant melanoma of other part of trunk, Diagnosed 09/09/2021 (active) . Imaging: See HPI Impression: Stage IV melanoma with progressive disease Plan: I reviewed the simulation process. We discussed the daily treatment regiment. I reviewed with him that with as large as these masses are it will require of a substantial amount of radiation in order to have any effect. We talked about the possibility of even 4 to 6 weeks of treatment. He is waiting for approval for a newly approved drug. He gets his immunotherapy monthly. We talked about the risks and side effects and the skin reaction that can occur. He verbalized understanding of this and is agreed to proceed. He will undergo simulation and begin his treatments within the next 3 to 4 days. Signed by: 08/11/2023 3:09:09 PM <<Signature on File>> Time spent with patient: CPT Code: CPT Code:
[2023-08-11] MEDS: LORazepam 0.5 mg Tablet PO (15:11)
== END 2023-08-16 23:59 | disposition home or self-care (01) ==
PROVIDERS: PCP Family Medicine; Visit Provider Internal Medicine Medical Oncology
DX: C43.9 Malignant melanoma of skin, unspecified (principal); Z53.9 Procedure and treatment not carried out, unspecified reason; D50.9 Iron deficiency anemia, unspecified; Z95.828 Presence of other vascular implants and grafts
CPT/HCPCS: 77290; 77295; 77300; 77321; 77334; 96360; 96361; 96365; 96366; 96367; 99024; 99215; J1200; J1642; J1750; J7030; J7040

== ENCOUNTER 2023-09-01 11:10 | Outpatient (CLI) | payer MEDICAID, SELFPAY ==
--- NOTE | 2023-09-01 11:00 | CT_ITS ---
WS: [id number] CT ABDOMEN AND PELVIS NONCONTRAST HISTORY: abd pain and palpable mass, history of melanoma. TECHNIQUE: Imaging performed through the abdomen and pelvis. Coronal and sagittal reformats are submi tted. All CT scans at [facility] use at least one of these dose optimization techniques: auto mated exposure control; mA and/or kV adjustment per patient size (includes targeted exams where dose is matched to clinical indication); or iterative reconstruction. DLP: 283.47 mGy.cm COMPARISON: 12/12/2022 and PET/CT 06/30/2023 Lower thorax: Benign granuloma RIGHT middle lobe. No definite nodules at the lung bases. Small layeri ng LEFT pleural effusion. Heart size is small. Liver: Patient has known metastatic disease within the liver. The largest lesion in the superior RIGH T lobe of the liver measures 3.8 x 4.2 cm. Lesion appears slightly increased in size as compared to t he PET/CT of 06/30/2023. There are additional scattered low-attenuation areas within the liver which a ppear progressed also. Gallbladder: Cholelithiasis. Pancreas: Marked atrophy. Spleen: Markedly enlarged spleen is very heterogeneous measuring 25 cm in length. Patient has known m etastatic disease to the spleen. Size of the spleen appears to have progressed since 12/12/2022. Chung red to the PET/CT probably no interval change. Adrenal glands: Negative. Right kidney: Normal size kidney with no mass or hydronephrosis. Left kidney: Normal size kidney. There is a low-attenuation 1.3 cm mass in the posterior LEFT perinep hric fat. I suspect this is a metastatic deposit and not a renal mass. Aorta: Mild atherosclerosis abdominal aorta with no aneurysm. Study is somewhat limited for evaluation of the lymph nodes without IV and oral contrast. Suspect met astatic focus in the fat posterior to the LEFT kidney. GI tract: Stomach is compressed by the enlarged spleen. No small bowel obstruction. Mild diffuse cons tipation. Abdominal wall: Negative. No hernia. Pelvis: Subcutaneous soft tissue nodule superficial to the RIGHT gluteus gurdeep muscle measuring 0.8 mm. Mild soft tissue edema. Osseous structures: Mixed lytic and atherosclerotic changes noted in the pelvis and hips. Patient has known osseous metastatic disease in the femurs. No fractures are identified. IMPRESSION: 1. Study is performed without IV and oral contrast. Specificity and sensitivity are decreased. 2. Increasing size of hepatic metastasis. Size and number of the metastatic lesions has increased. 3. Markedly enlarged heterogeneous spleen with diffuse metastatic disease. 4. Metastatic deposit posterior to the LEFT kidney and in the RIGHT subcutaneous soft tissues of the pelvis. 5. Cholelithiasis.
== END 2023-09-01 11:11 | disposition home or self-care (01) ==
LOC: RAD 11:10
PROVIDERS: PCP Family Medicine; Visit Provider Radiology Radiation Oncology
DX: C43.9 Malignant melanoma of skin, unspecified (principal); R10.9 Unspecified abdominal pain; R19.00 Intra-abdominal and pelvic swelling, mass and lump, unspecified site; R16.1 Splenomegaly, not elsewhere classified; K80.20 Calculus of gallbladder without cholecystitis without obstruction
CPT/HCPCS: 74176

== ENCOUNTER 2023-09-08 10:20 | Oncology outpatient (recurring) (ONCR) | payer MEDICAID, SELFPAY ==
--- NOTE | 2023-08-18 14:19 | MR_ITS ---
WS: [id number] MRI BRAIN WITH AND WITHOUT CONTRAST HISTORY: malignant melanoma COMPARISON: 07/04/2022 TECHNIQUE: Multiplanar imaging performed through the brain with MultiHance 20 ml's IV. No restricted diffusion to suggest acute ischemia. There are diffusion abnormalities with areas of in creased signal also on the ADC map. Mild bilateral atrophy. On the T1 sequence subtle areas of increased T1 signal in the LEFT frontal lobe is either melanin or hemosiderin. Ventricles and extra-axial spaces are normal. Clivus and pituitary gland are normal. No intra displacement of the cerebellar tonsils. Several metastatic masses are now identified within the brain. The largest mass in the LEFT frontal l obe abuts the falx. Mass contains hemosiderin. Diffuse enhancement in this mass measures 2.1 x 2.7 x 2.2 cm. Mass does contact the anterior interhemispheric falx with 2 mm of midline shift. There is a m oderate amount of peritumoral edema. Smaller metastatic lesions are noted in the posterior RIGHT fron ranjit lobe, periphery RIGHT parietal lobe, temporal lobe cortex along the sylvian fissure and RIGHT occ ipital lobe (2). No areas of abnormal enhancement in the cerebellum or brainstem. Dural venous sinuses are normal. Paranasal sinuses: Well aerated with no significant disease. Mastoid air cells: Normal. Calvarium and scalp: Normal. IMPRESSION: 1. Interval development of brain metastasis since 07/04/2022. The largest metastatic mass contains me lanin in the LEFT frontal lobe measuring 2.1 x 2.7 x 2.2 cm. Surrounding peritumoral edema with 2 mm of midline shift to the RIGHT. 2. Number of metastatic sites identified: 6. 3. No acute infarct.
[2023-08-18] MEDS: gadobenate dimeglumine 20 mL vial IV (15:37)
--- NOTE | 2023-08-19 11:44 | ONCRAD TMN_ITS ---
Radiation Oncology Weekly Treatment Management Patient: Carloz Adan MR#: [id number] : 1960> Attending Physician: Dr. Marcela Wayne Date of Service: 08/19/2023 Referring Physician(s) : Melissa Mercado Diagnosis: C77.3 - Secondary and unspecified malignant neoplasm of axilla and upper limb lymph nodes, Diagnosed 08/12/2023 (Active) C79.51 - Secondary malignant neoplasm of bone, Diagnosed 05/2022 (Active) C43.59 - Malignant melanoma of other part of trunk, Diagnosed 09/09/2021 (Active) Radiotherapy to date: Course: Bilateral Axilla, Treatment Site: Axilla Lt45Gy, Ref. ID: [id number], Energy: 15X/6X, Dose/Fx (cGy): 300, #Fx: 3 / 15, Dose Correction (cGy): 0, Total Dose Delivered (cGy): 900, Start Date: 08/17/2023, Elapsed Days: 2 Bilateral Axilla, Treatment Site: Axilla Rt45Gy, Ref. ID: [id number], Energy: 15X/6X, Dose/Fx (cGy): 300, #Fx: 3 / 15, Dose Correction (cGy): 0, Total Dose Delivered (cGy): 900, Start Date: 08/17/2023, Elapsed Days: 2 Reason for visit: The patient is being seen today as part of their regularly scheduled weekly on treatment visits to assess for acute toxicities from radiotherapy. Review of Systems: Patient had had intermittent nausea with emesis for the last week or 2. Vital Signs: Physical Exam: No change on examination Imaging: Radiation therapy imaging related to accurate target localization (i.e. KV, MV and CBCT) was reviewed. Appropriate changes, if any, were made to ensure treatment accuracy. Plan: He had an MRI of his head yesterday afternoon. The results show that he have several metastatic lesions with edema and a 1 to 2 mm midline shift. I reviewed these results with him. We discussed the typical treatment for this with starting steroids followed by radiation. 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 Will proceed with simulation and then start his treatments once he has been on the steroids for at least 48 hours. At this point we will put his immunotherapy on hold. Signed by: Dr. Marcela Wayne 08/19/2023 11:42:35 AM
--- NOTE | 2023-08-26 12:26 | ONCRAD TMN_ITS ---
Radiation Oncology Weekly Treatment Management Patient: Carloz Adan MR#: [id number] : 1960 Attending Physician: Dr. Marcela Wayne Date of Service: 08/26/2023 Fractions: 7 of 15, 1 of 10 to the brain Referring Physician(s) : Dr. Carloz Cm Diagnosis: C79.31 - Secondary malignant neoplasm of brain, Diagnosed 08/20/2023 (Active) C77.3 - Secondary and unspecified malignant neoplasm of axilla and upper limb lymph nodes, Diagnosed 08/12/2023 (Active) C79.51 - Secondary malignant neoplasm of bone, Diagnosed 05/2022 (Active) C43.59 - Malignant melanoma of other part of trunk, Diagnosed 09/09/2021 (Active) Radiotherapy to date: Course: Bilateral Axilla, Treatment Site: Axilla Lt45Gy, Ref. ID: [id number], Energy: 15X/6X, Dose/Fx (cGy): 300, #Fx: , Dose Correction (cGy): 0, Total Dose Delivered (cGy): 2,100, Start Date: 08/17/2023, Elapsed Days: 9 Course: Bilateral Axilla, Treatment Site: Axilla Rt45Gy, Ref. ID: [id number], Energy: 15X/6X, Dose/Fx (cGy): 300, #Fx: , Dose Correction (cGy): 0, Total Dose Delivered (cGy): 2,100, Start Date: 08/17/2023, Elapsed Days: 9 Treatment Site: [id number], Ref. ID: [id number], Energy: 15X, Dose/Fx (cGy): 300, #Fx: , Dose Correction (cGy): 0, Total Dose Delivered (cGy): 300, Start Date: 08/26/2023, Elapsed Days: 0 Reason for visit: The patient is being seen today as part of their regularly scheduled weekly on treatment visits to assess for acute toxicities from radiotherapy. Review of Systems: Patient actually is feeling little bit better today. He visited with the specialist in [place]. He was not a candidate for the new trial. The doctor there did recommend Temodar on the 28-day cycle. Patient is actually been able to eat a little bit more recently. He thinks the masses under his arms are decreasing. Vital Signs: Performed on 08/26/2023 10:43 AM BMI - 19.493 kg/m2, Height - 69 in, Weight - 132 lbs, Temperature - 97.3 f, Pulse - 79 /min, Respiration - 16 /min, O2 Sat - 99 %, Pain - 2, Fatigue - 6 and BP - 87/ 57 mm(hg)(low). Physical Exam: On examination the masses under each arm appear to be slightly smaller. Imaging: Radiation therapy imaging related to accurate target localization (i.e. KV, MV and CBCT) was reviewed. Appropriate changes, if any, were made to ensure treatment accuracy. Plan: Will continue with treatments as planned. We did start the brain treatment today. Signed by: Dr. Marcela Wayne 08/26/2023 12:25:45 PM
--- NOTE | 2023-09-01 11:35 | ONCRAD TMN_ITS ---
Radiation Oncology Weekly Treatment Management Patient: Loco Carty> MR#: [id number] : 1960> Attending Physician: Dr. Marcela Wayne Date of Service: 09/01/2023 Fractions: Axilla 11 of 15, whole brain 5 of 10 Referring Physician(s) : Melissa Mercado Diagnosis: C79.31 - Secondary malignant neoplasm of brain, Diagnosed 08/20/2023 (Active) C77.3 - Secondary and unspecified malignant neoplasm of axilla and upper limb lymph nodes, Diagnosed 08/12/2023 (Active) C79.51 - Secondary malignant neoplasm of bone, Diagnosed 05/2022 (Active) C43.59 - Malignant melanoma of other part of trunk, Diagnosed 09/09/2021 (Active) Radiotherapy to date: Course: Bilateral Axilla, Treatment Site: Axilla Lt45Gy, Ref. ID: [id number], Energy: 15X/6X, Dose/Fx (cGy): 300, #Fx: , Dose Correction (cGy): 0, Total Dose Delivered (cGy): 3,300, Start Date: 08/17/2023, Elapsed Days: 15 Course: Bilateral Axilla, Treatment Site: Axilla Rt45Gy, Ref. ID: [id number], Energy: 15X/6X, Dose/Fx (cGy): 300, #Fx: , Dose Correction (cGy): 0, Total Dose , Delivered (cGy): 3,300, Start Date: 08/17/2023, End Date: 09/01/2023, Elapsed Days: 15 Course: Bilateral Axilla, Treatment Site: [id number], Ref. ID: [id number], Energy: 15X, Dose/Fx (cGy): 300, #Fx: , Dose Correction (cGy): 0, Total Dose Delivered , (cGy): 1,500, Start Date: 08/26/2023, Elapsed Days: 6 Reason for visit: The patient is being seen today as part of their regularly scheduled weekly on treatment visits to assess for acute toxicities from radiotherapy. Review of Systems: He is actually been eating better. He was able to walk in from the car today. His said that when she cleaned the axillary area today they got quite a bit of necrotic tissue out of the area on the right. Vital Signs: Performed on 09/01/2023 10:44 AM BMI - 19.995 kg/m2, Height - 69 in, Weight - 135.4 lbs, Temperature - 96.2 f, Pulse - 80 /min, Respiration - 18 /min, O2 Sat - 98 %, Pain - 0, Fatigue - 0 and BP - 104/ 72 mm(hg). Physical Exam: On exam the mass is in the axillary area seem to be smaller in size. Imaging: Radiation therapy imaging related to accurate target localization (i.e. KV, MV and CBCT) was reviewed. Appropriate changes, if any, were made to ensure treatment accuracy. Plan: Will continue with treatments as planned. Signed by: Dr. Marcela Wayne 09/01/2023 11:33:05 AM
[2023-09-03 08:51] LABS: Basophils % 0.1 %; Hematocrit 27.6 % (37-53); Lymphocytes # 0.4 10^3/uL (0.8-4.8); Lymphocytes % 2.2 %; Mean Corpuscular HGB Conc 31.9 g/dL (30-55); Mean Corpuscular Hemoglobin 26.5 pg (27-33); Mean Corpuscular Volume 83.1 fl (82-101); Mean Platelet Volume 10.9 fL (7.4-10.4); Monocytes # 1.4 10^3/uL (0.2-0.9); Monocytes % 7.4 %; Neutrophils # 16.32 10^3/uL (1.8-7.7); Neutrophils % 89.3 %; Nucleated Red Blood Cells % 0 %; Platelet Count 265 10^3/cmm (157-399); Red Blood Count 3.32 10^6/uL (3.85-5.65); Red Cell Distribution Width 22.5 % (12.1-15.1); White Blood Count 18.28 10^3/uL (3.29-11.43)
[2023-09-03 09:04] LABS: Alanine Aminotransferase 19 U/L (0-41); Albumin Level 2.9 g/dL (3.5-5.2); Alkaline Phosphatase 68 U/L (40-130); Anion Gap 14.2 (5-19); Aspartate Amino Transferase 17 U/L (0-40); Blood Urea Nitrogen 26 mg/dL (8-23); Carbon Dioxide 23 mmol/L (22-29); Chloride 105 mmol/L (98-107); Globulin 2.6 g/dL (1.3-4.6); Glomerular Filtration Rate 136.1 mL/min (90-130); Glucose 104 mg/dL (65-115); Osmolality Calculated 291 mOsm/kg (285-295); Potassium 4.2 mmol/L (3.5-5.1); Sodium 138 mmol/L (136-145); Total Bilirubin 0.3 mg/dL (0.15-1.2); Total Protein 5.5 g/dL (6.6-8.7)
[2023-09-03 11:50] LABS: Iron 38 ug/dL (59-158); Percent Saturation 30.4 % (20-50); Total Iron Binding Capacity 125 mcg/dl; Unsaturated Iron Binding 87 ug/dL (112-347)
[2023-09-03 12:03] LABS: Ferritin 2557 ng/mL (30-400)
--- NOTE | 2023-09-08 11:04 | N.ONRD TS_ITS ---
Radiation Oncology Treatment Summary/Treatment Management Note Patient: Carloz Adan MR#: [id number] : 1960 Age: 63 Sex: Male Dictated by: Dr. Marcela Wayne Date of Service: 09/08/2023 Treatment site whole brain completed, bilateral axillary masses treatment completed 3 out of 5 weeks Referring Physician(s) : Melissa Mercado Diagnosis: C79.31 - Secondary malignant neoplasm of brain, Diagnosed 08/20/2023 (Active) C77.3 - Secondary and unspecified malignant neoplasm of axilla and upper limb lymph nodes, Diagnosed 08/12/2023 (Active) C79.51 - Secondary malignant neoplasm of bone, Diagnosed 05/2022 (Active) C43.59 - Malignant melanoma of other part of trunk, Diagnosed 09/09/2021 (Active) Radiotherapy to Date: Course: Bilateral Axilla, Treatment Site: Axilla Lt45Gy, Ref. ID: [id number], Energy: 15X/6X, Dose/Fx (cGy): 300, #Fx: 15 / 15, Dose Correction (cGy): 0, Total Dose Delivered (cGy): 4,500, Start Date: 08/17/2023, End Date: 09/07/2023, Elapsed Days: 21 Bilateral Axilla, Treatment Site: Axilla Rt45Gy, Ref. ID: [id number], Energy: 15X/6X, Dose/Fx (cGy): 300, #Fx: 15 / 15, Dose Correction (cGy): 0, Total Dose Delivered (cGy): 4,500, Start Date: 08/17/2023, End Date: 09/07/2023, Elapsed Days: 21 Bilateral Axilla, Treatment Site: [id number], Ref. ID: [id number], Energy: 15X, Dose/Fx (cGy): 300, #Fx: 10 / 10, Dose Correction (cGy): 0, Total Dose Delivered (cGy): 3,000, Start Date: 08/26/2023, End Date: 09/08/2023, Elapsed Days: 13 Bone Mets 2022, Treatment Site: Bone Met - Lt Proximal Femur, Ref. ID: [id number], Energy: 15X, Dose/Fx (cGy): 800, #Fx: , Dose Correction (cGy): 0, Total Dose Delivered (cGy): 800, Start Date: 12/19/2022, End Date: 12/19/2022, Elapsed Days: 0 Vital Signs: Performed on 09/08/2023 10:33 AM BMI - 21.058 kg/m2, Height - 69 in, Weight - 142.6 lbs, Temperature - 98 f, Pulse - 81 /min, Respiration - 16 /min, O2 Sat - 97 %, Pain - 2, Fatigue - 5 and BP - 109/ 71 mm(hg). Clinical Summary: The patient tolerated RT well. Patient has had a good response to the radiation to the axillary masses. He tolerated the whole brain radiation without problems. During these 3 weeks he has had an increase in his energy and his appetite. He is actually gained a pound or 2. He will take a 2 to 3-week break and then return for additional treatment with plans for an additional 2 weeks to the axillary masses. Plan: End of treatment today. Continue on the above medication until the skin reaction resolves. Follow up in 3 weeks. Signed by: Dr. Medrano Rosana>09/08/2023 11:02:59 AM <<Signature on File>>
== END 2023-09-08 23:59 | disposition home or self-care (01) ==
PROVIDERS: Internal Medicine; PCP Family Medicine; Visit Provider Radiology Radiation Oncology
DX: Z51.0 Encounter for antineoplastic radiation therapy; C43.59 Malignant melanoma of other part of trunk; C79.51 Secondary malignant neoplasm of bone; C79.31 Secondary malignant neoplasm of brain; C77.3 Secondary and unspecified malignant neoplasm of axilla and upper limb lymph nodes
CPT/HCPCS: 36591; 70553; 77290; 77334; 77336; 77387; 77412; 80053; 82728; 83540; 83550; 85025; 99024; 99213; A9577

== ENCOUNTER → 2023-09-23 09:00 | Outpatient (BNVA) | payer MEDICAID, SELFPAY | PROVIDERS: PCP Family Medicine; Visit Provider Thoracic Surgery (Cardiothoracic Vascular Surgery) | DX: C77.3 Secondary and unspecified malignant neoplasm of axilla and upper limb lymph nodes (principal); I96 Gangrene, not elsewhere classified | CPT/HCPCS: 11042; 99213 ==

== ENCOUNTER 2023-09-29 11:36 | Outpatient (CLI) | payer MEDICAID, SELFPAY ==
--- NOTE | 2023-09-29 11:30 | PETR_ITS ---
PROCEDURE INFORMATION: Exam: PET/CT Whole Body Exam date and time: 09/29/2023 12:38 PM Age: 63 years old Clinical indication: Condition or disease; Primary cancer: Malignant melanoma LABS AND CLINICAL REPORTS: Glucose: 106 mg/dl Treatment strategy for malignancy (PET staging): Restaging (PS) TECHNIQUE: Imaging protocol: Following at least four-hour fasting and following the injection of radiopharmaceutical, low dose CT images were obtained. Then, PET images were obtained. Attenuation corrected images were constructed using the CT scan. Fused images of PET and CT were reviewed. The standardized uptake values (SUV) reported below are maximum values within a region of interest, expressed in gm/ml. Exam includes the whole body. Radiopharmaceutical: 11.59 mCi F-18 FDG (Fluorodeoxyglucose), IV. Time of imaging post radiopharmaceutical administration: 1 hour Injection site: left AC COMPARISON: 1. PT PET skulltothigh SUBSEQ [id number] 06/30/2023 8:[address] abdomen pelvis from 09/01/2023 FINDINGS: Tubes, catheters and devices: Right-sided Port-A-Cath terminates in the mid SVC. Brain: Visualized brain has normal physiologic uptake. Pharynx: No abnormal uptake. Larynx: No abnormal uptake. Lungs, pleura and trachea: Redemonstrated large left pleural effusion. Heart: Normal physiologic uptake. Mediastinal space: No abnormal uptake. Liver: Decreased FDG uptake within the markedly enlarged spleen, now 6.8, previously 11.4. Gallbladder and bile ducts: Cholelithiasis. Pancreas: No abnormal uptake. Spleen: Increased FDG uptake within an exophytic lesion off the inferior left hepatic lobe with SUV max 8.6, previously 7.0. This measures 4.3 x 4.2 cm, increased from prior PET but similar to recent CT. Other liver metastases are not FDG avid. Adrenal glands: No abnormal uptake. Kidneys and ureters: Normal physiologic uptake. Stomach and bowel: No abnormal uptake. Intraperitoneal and retroperitoneal spaces: Small volume free fluid in the pelvis. Reproductive: Decreased FDG uptake within the soft tissue mass involving the base of the penis with SUV max 10.3, previously 15.2. The bulk of the soft tissue mass measures 5.2 x 4.8, increased from prior PET but similar to recent CT. Vasculature: No abnormal uptake. Lymph nodes: A new 1.2 cm hypermetabolic left cervical chain level 5 lymph node is seen with SUV max 2.9 (image 85). 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 This measures similarly at 3.3 x 5.3 cm. Mendez masses in the bilateral axillae demonstrate decreased FDG uptake with SUV max 6.1 on the right and 6.5 on the left, previously 15.2 on the right and 13.8 on the left. The right axillary mass appears decreased in bulk, now measuring 12.6 x 8.2 cm with few internal foci of gas, which could reflect necrosis versus infection. The left axillary mass measures similarly. Bones/joints: Decreased FDG uptake within the metastatic lesion involving the right scapula with SUV max 4.2, previously 8.5. Decreased FDG uptake within the proximal left femur with SUV max 2.9, previously 11.2. Soft tissues: Decreased FDG uptake within the 1.7 cm subcutaneous soft tissue nodule adjacent to the right iliac crest with SUV max 1.5, previously 12.7. Mildly increased FDG uptake of the 1.4 cm soft tissue nodule just posterior to the left kidney with SUV max 2.4. PET/PET WB melanoma SUBSEQ [id number] IMPRESSION: 1. Mixed response to therapy compared to prior PET. Increased size and FDG uptake within a left hepatic lobe metastasis. There is a new hypermetabolic left cervical chain level 5 lymph node. 2. Mildly increased FDG uptake involving the periphery of the left supraclavicular mendez conglomerate. 3. Mildly increased FDG uptake involving a soft tissue nodule posterior to the left kidney. 4. Decreased FDG uptake within the markedly enlarged spleen. 5. Increased bulk of the soft tissue mass involving the base of the penis compared to prior PET, though now with decreased FDG uptake. 6. Right axillary mass demonstrates decreased FDG uptake and interval decrease in size. Some internal foci of gas may reflect necrosis or infection. The left axillary mass measures similarly with decreased FDG uptake. 7. Decreased FDG uptake involving osseous lesions involving the right scapula and left femur. 8. Decreased FDG uptake within a subcutaneous soft tissue nodule adjacent to the right iliac crest.
== END 2023-09-29 11:37 | disposition home or self-care (01) ==
PROVIDERS: PCP Family Medicine; Visit Provider Internal Medicine
DX: D50.9 Iron deficiency anemia, unspecified (principal); C43.9 Malignant melanoma of skin, unspecified; Z95.9 Presence of cardiac and vascular implant and graft, unspecified; C78.7 Secondary malignant neoplasm of liver and intrahepatic bile duct; R59.0 Localized enlarged lymph nodes; R16.1 Splenomegaly, not elsewhere classified; D29.0 Benign neoplasm of penis; C40.00 Malignant neoplasm of scapula and long bones of unspecified upper limb
CPT/HCPCS: 78816; A9552

== ENCOUNTER → 2023-10-07 10:40 | Outpatient (BNVA) | payer MEDICAID, SELFPAY | PROVIDERS: PCP Family Medicine; Visit Provider Thoracic Surgery (Cardiothoracic Vascular Surgery) | DX: I96 Gangrene, not elsewhere classified (principal); C79.2 Secondary malignant neoplasm of skin | CPT/HCPCS: 11042 ==

== ENCOUNTER 2023-10-15 11:01 | Oncology outpatient (recurring) (ONCR) | payer MEDICAID, SELFPAY ==
[2023-10-15 11:52] LABS: Basophils % 0.2 %; Eosinophils % 0.1 %; Hematocrit 32.3 % (37-53); Lymphocytes # 0.5 10^3/uL (0.8-4.8); Lymphocytes % 2.3 %; Mean Corpuscular HGB Conc 31.9 g/dL (30-55); Mean Corpuscular Hemoglobin 26.8 pg (27-33); Mean Corpuscular Volume 84.1 fl (82-101); Mean Platelet Volume 8.7 fL (7.4-10.4); Monocytes # 1.2 10^3/uL (0.2-0.9); Monocytes % 5.8 %; Neutrophils # 17.99 10^3/uL (1.8-7.7); Neutrophils % 90.4 %; Nucleated Red Blood Cells % 0 %; Platelet Count 635 10^3/cmm (157-399); Red Blood Count 3.84 10^6/uL (3.85-5.65); Red Cell Distribution Width 19.9 % (12.1-15.1); White Blood Count 19.88 10^3/uL (3.29-11.43)
[2023-10-15 12:10] LABS: Alanine Aminotransferase 9 U/L (0-41); Albumin Level 2.4 g/dL (3.5-5.2); Alkaline Phosphatase 89 U/L (40-130); Anion Gap 15.1 (5-19); Aspartate Amino Transferase 14 U/L (0-40); Blood Urea Nitrogen 15 mg/dL (8-23); Calcium 7.8 mg/dL (8.5-10.5); Carbon Dioxide 23 mmol/L (22-29); Chloride 99 mmol/L (98-107); Creatinine Clr Calc Pharmacy 119.5917; Globulin 3.3 g/dL (1.3-4.6); Glomerular Filtration Rate 136.1 mL/min (90-130); Glucose 105 mg/dL (65-115); Lactate Dehydrogenase 702 U/L (135-225); Osmolality Calculated 277 mOsm/kg (285-295); Potassium 4.1 mmol/L (3.5-5.1); Sodium 133 mmol/L (136-145); Total Bilirubin 0.3 mg/dL (0.15-1.2); Total Protein 5.7 g/dL (6.6-8.7)
[2023-10-15] MEDS: sodium chloride 0.9% 1,000 ML 999 ML IV (12:44)
[2023-10-15 13:40] VITALS: BP 115/78; PULSE 78; RESP 18; TEMP 36.6; O2SAT 98
== END 2023-10-16 23:59 | disposition home or self-care (01) ==
LOC: ONCMED 11:02
PROVIDERS: Nurse Practitioner Family; PCP Family Medicine; Visit Provider Radiology Radiation Oncology
DX: C43.9 Malignant melanoma of skin, unspecified (principal); D50.9 Iron deficiency anemia, unspecified; Z53.9 Procedure and treatment not carried out, unspecified reason; Z95.828 Presence of other vascular implants and grafts
CPT/HCPCS: 36591; 80053; 83615; 85025; 96360; 99214; J7030